=== PATIENT | female | born 1945 | race American Indian/Alaskan Native ===

== ENCOUNTER 2018-03-20 22:30 | Observation (INO) | payer MEDICAID, OTHER ==
--- NOTE | 2018-03-20 23:40 | C.PDOC ---
History Of Present Illness The patient presents to the ED for evaluation of shortness of breath which began earlier today. Patient states she was afraid to fall asleep and presents to the ED for further evaluation. She denies fever, chills, nausea, vomiting. Time Seen by Provider: 03/20/18 23:39 Chief Complaint (Nursing): Shortness Of Breath History Per: Patient History/Exam Limitations: no limitations Onset/Duration Of Symptoms: Hrs Current Symptoms Are (Timing): Still Present Quality: denies: "Pain" Current Respiratory Medications: See Home Med List Severity: Mild Pain Scale Rating Of: 3 Associated Symptoms: denies: Fever, Chills Recent travel outside of the [place]: No Additional History Per: Patient Past Medical History Reviewed: Historical Data, Nursing Documentation, Vital Signs Vital Signs: Last Vital Signs Temp 98.6 F 03/21/18 02:01 Pulse 79 03/21/18 02:01 Resp 22 03/21/18 02:01 BP 119/45 L 03/21/18 02:01 Pulse Ox 98 03/21/18 02:01 - Medical History PMH: Anxiety, Arthritis, Bipolar Disorder, Depression, Diabetes, Emphysema, HTN , Hypercholesterolemia, Parkinson's Disease Denies: Chronic Kidney Disease Surgical History: No Surg Hx Family History: States: Unknown Family Hx - Social History Hx Tobacco Use: Yes Hx Alcohol Use: No Hx Substance Use: No - Immunization History Hx Tetanus Toxoid Vaccination: No Hx Influenza Vaccination: No Hx Pneumococcal Vaccination: No Review Of Systems Constitutional: Negative for: Fever, Chills Cardiovascular: Negative for: Chest Pain, Palpitations Respiratory: Positive for: Shortness of Breath. Negative for: Cough Gastrointestinal: Negative for: Nausea, Vomiting Skin: Negative for: Rash, Lesions, Jaundice, Bruising Neurological: Negative for: Weakness, Numbness Psych: Negative for: Anxiety Physical Exam - Physical Exam Appears: Non-toxic, No Acute Distress, Other (strong cigarette odor noted ) Skin: Normal Color, Warm, Dry Head: Normacephalic Eye(s): bilateral: Normal Inspection Oral Mucosa: Moist Teeth: Edentulous Neck: Supple Chest: Symmetrical, No Deformity, No Tenderness Cardiovascular: Rhythm Regular, No Murmur Respiratory: No Rales, No Rhonchi, Wheezing (scattered ), Other (speaking in complete sentences ) Extremity: Normal ROM, Capillary Refill (less than 2 seconds ) Neurological/Psych: Oriented x3 Gait: Steady ED Course And Treatment - Laboratory Results Result Diagrams: 03/20/18 23:58 03/20/18 23:58 ECG: Interpreted By Me, Viewed By Me ECG Rhythm: Sinus Rhythm (75), Nonspecific Changes O2 Sat by Pulse Oximetry: 95 (on RA) Pulse Ox Interpretation: Normal - Radiology CXR: Interpreted by Me, Viewed By Me Progress Note: Bloodwork, urinalysis, CXR, EKG ordered and reviewed. Albuterol INH administered. Critical Care Time - Critical Care Note Total Time (in mins): 30 Documented critical care: time excludes all time spent performing seperately billable procedures. Disposition Discussed With Dr.: Victorino Webster Comment: accepted the pt on his service and took over the care at 4:45 AM Doctor Will See Patient In The: ED Counseled Patient/Family Regarding: Studies Performed, Diagnosis - Disposition Disposition: HOSPITALIZED Disposition Time: 23:39 Condition: FAIR Forms: [employer] (Ukrainian) - Clinical Impression Clinical Impression: Tobacco abuse, Dyspnea, Acute asthma exacerbation - Scribe Statement The provider has reviewed the documentation as recorded by the Scribe (Susy Nayak) Provider Attestation: All medical record entries made by the Scribe were at my direction and personally dictated by me. I have reviewed the chart and agree that the record accurately reflects my personal performance of the history, physical exam, medical decision making, and the department course for this patient. I have also personally directed, reviewed, and agree with the discharge instructions and disposition. Decision To Admit - Pt Status Changed To: Hospital Disposition Of: Inpatient - Admit Certification Admit to Inpatient:: After my assessment, the patient will require hospitalization for at least two midnights. This is because of the severity of symptoms shown, intensity of services needed, and/or the medical risk in this patient being treated as an outpatient. - InPatient: Physician Admission Certification: I certify that this patient requires 2 or more midnights of care for the following reason:: After my assessment, the patient will require hospitalization for at least two midnights. This is because of the severity of symptoms shown, intensity of services needed, and/or the medical risk in this patient being treated as an outpatient. - . Bed Request Type: Regular Admitting Physician: Victorino Webster Patient Diagnosis: Tobacco abuse, Dyspnea, Acute asthma exacerbation
[2018-03-21 00:08] LABS: BASO % 0.6 % (0.0-2.0); EOS # 0.4 K/uL (0.0-0.7); HEMOGLOBIN 11.3 g/dL (11.0-16.0); LYMPH # 1.8 K/uL (1.0-4.3); LYMPH % 20.1 % (20.0-40.0); MEAN CELL VOLUME 93.6 fL (81.0-99.0); MEAN CORPUSCULAR HEMOGLOBIN 31.4 pg (27.0-31.0); MEAN CORPUSCULAR HGB CONC 33.5 g/dL (33.0-37.0); MEAN PLATELET VOLUME 8.1 fL (7.2-11.7); MONO # 1.2 K/uL (0.0-0.8); MONO % 13.9 % (0.0-10.0); NEUT # 5.4 K/uL (1.8-7.0); NEUT % 61.4 % (50.0-75.0); NRBC % 0.2 % (0.0-2.0); RBC 3.59 Mil/uL (3.80-5.20); RED CELL DISTRIBUTION WIDTH 14.9 % (11.5-14.5); WHITE BLOOD COUNT 8.8 K/uL (4.8-10.8)
[2018-03-21 00:11] LABS: INR 1.2; PROTHROMBIN TIME 12.8 SECONDS (9.7-12.2)
[2018-03-21 00:11] LABS: ABG ALLEN TEST POS; ARTERIAL BLOOD GAS HCO3 28.8 mmol/L (21-28); ARTERIAL BLOOD GAS O2 SAT 97.7 % (95-98); ARTERIAL BLOOD GAS PCO2 55 mm/Hg (35-45); ARTERIAL BLOOD GAS PH 7.37 (7.35-7.45); ARTERIAL BLOOD GAS PO2 83 mm/Hg (80-100); ARTERIAL BLOOD GAS TCO2 33.5 mmol/L (22-28)
[2018-03-21] MEDS: Albuterol-Ipratrop 3 mg / 0.5 (3 ml) UD IH SCH ×3 (00:15→00:45)
[2018-03-21] MEDS ORDERED: Albuterol-Ipratrop 3 mg / 0.5 (3 ml) UD ONE ×3 (00:18)
[2018-03-21 00:31] LABS: TROPONIN I 0.034 ng/mL (0.00-0.120)
[2018-03-21 00:32] LABS: ALBUMIN 3.8 g/dL (3.5-5.0); CALCIUM 9.4 mg/dl (8.6-10.4)
[2018-03-21] MEDS ORDERED: Albuterol 0.083% Inhal Sol (2.5 mg/3 mL) UD ONE (01:46)
--- NOTE | 2018-03-21 04:24 | CP.PCM.HP ---
<Stephanie Lindsay - Last Filed: 03/21/18 07:09> History of Present Illness - History of Present Illness History of Present Illness: H&P: 72 year old female with past medical history of asthma, HLD, HTN, DM, bipolar, Parkinson presented to hospital for shortness of breath that began about 5 days ago. SOB is accompanied with productive cough with whitish sputum. Patient also complains of sunjective F/C since earlier yesterday. Patient denies having any chest discomfort, abd pain, N/v/d/C. she does c/o sinus congestion but denies having any rhinorrhea. Patient has not used any medications for her symptoms at home other than her regular prescriptions. Patient does not use home O2. Currently, continues to c/o sob. denies CP, abd pain, N/V/d/c, LE swelling, F/C. No hx of DVT or PE. No recent travels. No sick contacts. Pmhx: stated above Sx: right eye cataract sx., hemarrhoidectomy Social: Smoked 10 cig/day since age 19. denies ETOH/ilicit drug use. Meds: Losartan/HCTz 100/12.5 mg po qd; Divaloproex DR 500 mg po BID, Glimepiride 2 mg po qd, Benctropine 1 mg po BID, Risperidone 3 mg po bid, Pravastatin 20 mg po qd, Hydralazine 25 mg po bid, ventolin, gabapentin 300 mg po bid, amlodipine 10 mg po qd NKDA Present on Admission - Present on Admission Any Indicators Present on Admission: No Review of Systems - Constitutional Constitutional: Chills, Fever - EENT Eyes: absent: Blurred Vision, Change in Vision Nose/Mouth/Throat: Nasal Congestion. absent: Nasal Discharge, Sinus Pressure, Sore Throat - Cardiovascular Cardiovascular: absent: Chest Pain, Dyspnea, Dyspnea on Exertion, Leg Edema - Respiratory Respiratory: Cough, Dyspnea, Dyspnea on Exertion, Wheezing. absent: Hemoptysis , Pain on Inspiration, Chest Congestion, Pain with Coughing - Gastrointestinal Gastrointestinal: absent: Abdominal Pain, Constipation, Diarrhea, Nausea, Vomiting - Genitourinary Genitourinary: absent: Dysuria, Urinary Frequency - Musculoskeletal Musculoskeletal: absent: Back Pain, Numbness, Tingling - Integumentary Integumentary: absent: Acne, Lesions, Rash, Wounds - Neurological Neurological: absent: Syncope, Tremor, Weakness Past Patient History - Infectious Disease Hx of Infectious Diseases: None - Past Medical History & Family History Past Medical History?: Yes - Past Social History Smoking Status: Heavy Smoker > 10 Cigarettes Daily Chewing Tobacco Use: No Cigar Use: No Alcohol: None Drugs: Denies Home Situation {Lives}: With Family - CARDIAC Hx Hypercholesterolemia: Yes Hx Hypertension: Yes - PULMONARY Hx Emphysema: Yes - NEUROLOGICAL Hx Parkinson's Disease: Yes - HEENT Other/Comment: wear eyeglasses - RENAL Hx Chronic Kidney Disease: No - ENDOCRINE/METABOLIC Hx Endocrine Disorders: Yes Hx Diabetes Mellitus Type 2: Yes - HEMATOLOGICAL/ONCOLOGICAL Hx Blood Disorders: No - INTEGUMENTARY Hx Dermatological Problems: No - MUSCULOSKELETAL/RHEUMATOLOGICAL Hx Arthritis: Yes - GASTROINTESTINAL Hx Gastrointestinal Disorders: No - GENITOURINARY/GYNECOLOGICAL Hx Genitourinary Disorders: No - PSYCHIATRIC Hx Anxiety: Yes Hx Bipolar Disorder: Yes Hx Depression: Yes Hx Substance Use: No - SURGICAL HISTORY Hx Surgeries: No - ANESTHESIA Hx Anesthesia: No Hx Anesthesia Reactions: No Hx Malignant Hyperthermia: No Meds Allergies/Adverse Reactions: Allergies Allergy/AdvReac Type Severity Reaction Status Date / Time No Known Allergies Allergy Verified 03/20/18 22:52 Physical Exam - Constitutional Appears: Non-toxic, No Acute Distress - Head Exam Head Exam: ATRAUMATIC, NORMOCEPHALIC - Eye Exam Eye Exam: EOMI Pupil Exam: PERRL - ENT Exam ENT Exam: Mucous Membranes Moist - Respiratory Exam Respiratory Exam: Wheezes. absent: Accessory Muscle Use, Rales, Rhonchi, Respiratory Distress - Cardiovascular Exam Cardiovascular Exam: REGULAR RHYTHM, +S1, +S2. absent: Diastolic murmur, Gallop , Rubs, Systolic Murmur - GI/Abdominal Exam GI & Abdominal Exam: Normal Bowel Sounds, Soft. absent: Distended, Firm, Guarding, Rigid, Tenderness - Extremities Exam Extremities exam: Negative for: pedal edema, tenderness - Neurological Exam Neurological exam: Alert, Oriented x3 - Psychiatric Exam Psychiatric exam: Normal Affect, Normal Mood - Skin Skin Exam: Dry, Intact, Normal Color, Warm Results - Vital Signs Recent Vital Signs: Last Vital Signs Temp 98.6 F 03/21/18 02:01 Pulse 79 03/21/18 02:01 Resp 22 03/21/18 02:01 BP 119/45 L 03/21/18 02:01 Pulse Ox 98 03/21/18 02:01 - Labs Result Diagrams: 03/20/18 23:58 03/20/18 23:58 Labs: Laboratory Results - last 24 hr 03/20/18 03/20/18 03/20/18 00:05 23:58 23:58 WBC 8.8 RBC 3.59 L Hgb 11.3 Hct 33.5 L MCV 93.6 MCH 31.4 H MCHC 33.5 RDW 14.9 H Plt Count 235 MPV 8.1 Neut % (Auto) 61.4 Lymph % (Auto) 20.1 Placer % (Auto) 13.9 H Eos % (Auto) 4.0 Baso % (Auto) 0.6 Neut # (Auto) 5.4 Lymph # (Auto) 1.8 Placer # (Auto) 1.2 H Eos # (Auto) 0.4 Baso # (Auto) 0.0 PT 12.8 H INR 1.2 APTT 41 H Puncture Site Rr pCO2 55 H pO2 83 HCO3 28.8 H ABG pH 7.37 ABG Total CO2 33.5 H ABG O2 Saturation 97.7 ABG Base Excess 5.0 H Humberto Test Pos ABG Potassium 3.3 L A-a O2 Difference 48.0 Respiratory Index 0.6 Sodium 143.0 Chloride 108.0 H Glucose 89 Lactate 0.9 Liter Flow 2.0 FiO2 28.0 Potassium Carbon Dioxide Anion Gap BUN Creatinine Est GFR ( Amer) Est GFR (Non-Af Amer) Random Glucose Calcium Total Bilirubin AST ALT Alkaline Phosphatase Troponin I NT-Pro-B Natriuret Pep Total Protein Albumin Globulin Albumin/Globulin Ratio Arterial Blood Potassium 3.3 L 03/20/18 23:58 WBC RBC Hgb Hct MCV MCH MCHC RDW Plt Count MPV Neut % (Auto) Lymph % (Auto) Placer % (Auto) Eos % (Auto) Baso % (Auto) Neut # (Auto) Lymph # (Auto) Placer # (Auto) Eos # (Auto) Baso # (Auto) PT INR APTT Puncture Site pCO2 pO2 HCO3 ABG pH ABG Total CO2 ABG O2 Saturation ABG Base Excess Humberto Test ABG Potassium A-a O2 Difference Respiratory Index Sodium 146 Chloride 104 Glucose Lactate Liter Flow FiO2 Potassium 3.7 Carbon Dioxide 29 Anion Gap 17 BUN 13 Creatinine 1.1 Est GFR ( Amer) 59 Est GFR (Non-Af Amer) 49 Random Glucose 87 Calcium 9.4 Total Bilirubin 0.4 AST 14 ALT 7 L D Alkaline Phosphatase 57 Troponin I 0.0340 NT-Pro-B Natriuret Pep 219 Total Protein 7.6 Albumin 3.8 Globulin 3.8 Albumin/Globulin Ratio 1.0 Arterial Blood Potassium Assessment & Plan - Assessment and Plan (Free Text) Assessment: 72 year old female with past medical history of Bipolar, HTN, Hyperlipidemia, Parkinsons, Diabetes, COPD is admitted for COPD exacerbation. CXR on admission showed questionable right lower lobe infiltrate. Patient had low grade temp on admission and was persistently tachycardic. Normal WBC count and normal lactic acid. COPD exacerbation - NC prn to maintian O2 >90% - Duonebs q6 nay. Duoneb Q2 prn - will start solumedrol 40 IV bid - Doxycycline 100 mg po BID - will check procal - Since pt has presistent tachycardia and shortness of breath, will check CTA for possible PE DM - Will hold home medications due to contrast exposure - Accuchecks ACHS - ISS - Heart healthy diet - Will check Hgb A1c - will continue gabapentin for diabetic neuropathy HTN - Will continue Norvasc 10 mg po qd, Losartan 100 mg qd and HCTZ 25 mg po qd - will hold hydralazine for now - Will continue to monitor VS HLD - Will continue statin therapy - Will check lipid panel Parkinson's - Will continue home medications: benztropine Bipolar - Will continue home medications: divalproex and risperidone Prophylaxis - Heparin, SCDs - Pepcid Case discussed with attending, Dr. Webster - Date & Time Date: 03/21/18 Time: 04:24 <Victorino Webster P - Last Filed: 03/22/18 07:04> Results - Vital Signs Recent Vital Signs: Last Vital Signs Temp 97.8 F 03/22/18 04:00 Pulse 80 03/22/18 04:00 Resp 20 03/22/18 04:00 BP 108/64 03/22/18 04:00 Pulse Ox 99 03/22/18 04:00 - Labs Result Diagrams: 03/21/18 13:57 03/21/18 13:57 Labs: Laboratory Results - last 24 hr 03/21/18 03/21/18 03/21/18 08:16 11:13 13:57 WBC 9.0 RBC 3.75 L Hgb 11.6 Hct 35.1 MCV 93.5 MCH 31.0 MCHC 33.2 RDW 15.0 H Plt Count 258 MPV 8.5 Neut % (Auto) 87.4 H Lymph % (Auto) 10.9 L Placer % (Auto) 1.2 Eos % (Auto) 0.0 Baso % (Auto) 0.5 Neut # (Auto) 7.8 H Lymph # (Auto) 1.0 Placer # (Auto) 0.1 Eos # (Auto) 0.0 Baso # (Auto) 0.0 Sodium Potassium Chloride Carbon Dioxide Anion Gap BUN Creatinine Est GFR ( Amer) Est GFR (Non-Af Amer) POC Glucose (mg/dL) 131 H 269 H Random Glucose Hemoglobin A1c Calcium Total Bilirubin AST ALT Alkaline Phosphatase Total Protein Albumin Globulin Albumin/Globulin Ratio Triglycerides Cholesterol LDL Cholesterol Direct HDL Cholesterol Procalcitonin H.influenzae Type B Ag Ur L.pneumophila Ag Mycoplasma pneumon IgM N.meningitidis ACY/W135 N.meningi B/E.coli K1 Ag Group B Strep Antigen S. pneumoniae Antigen 03/21/18 03/21/18 03/21/18 13:57 13:57 13:57 WBC RBC Hgb Hct MCV MCH MCHC RDW Plt Count MPV Neut % (Auto) Lymph % (Auto) Placer % (Auto) Eos % (Auto) Baso % (Auto) Neut # (Auto) Lymph # (Auto) Placer # (Auto) Eos # (Auto) Baso # (Auto) Sodium 141 Potassium 4.6 Chloride 100 Carbon Dioxide 26 Anion Gap 19 BUN 16 Creatinine 1.1 Est GFR ( Amer) 59 Est GFR (Non-Af Amer) 49 POC Glucose (mg/dL) Random Glucose 299 H Hemoglobin A1c 7.1 H Calcium 9.5 Total Bilirubin 0.6 AST 18 ALT 9 D Alkaline Phosphatase 69 Total Protein 8.0 Albumin 4.0 Globulin 4.0 H Albumin/Globulin Ratio 1.0 Triglycerides 79 D Cholesterol 183 LDL Cholesterol Direct 113 HDL Cholesterol 38 Procalcitonin < 0.05 L H.influenzae Type B Ag Ur L.pneumophila Ag Mycoplasma pneumon IgM N.meningitidis ACY/W135 N.meningi B/E.coli K1 Ag Group B Strep Antigen S. pneumoniae Antigen 03/21/18 03/21/18 03/21/18 13:57 16:51 21:09 WBC RBC Hgb Hct MCV MCH MCHC RDW Plt Count MPV Neut % (Auto) Lymph % (Auto) Placer % (Auto) Eos % (Auto) Baso % (Auto) Neut # (Auto) Lymph # (Auto) Placer # (Auto) Eos # (Auto) Baso # (Auto) Sodium Potassium Chloride Carbon Dioxide Anion Gap BUN Creatinine Est GFR ( Amer) Est GFR (Non-Af Amer) POC Glucose (mg/dL) 285 H 214 H Random Glucose Hemoglobin A1c Calcium Total Bilirubin AST ALT Alkaline Phosphatase Total Protein Albumin Globulin Albumin/Globulin Ratio Triglycerides Cholesterol LDL Cholesterol Direct HDL Cholesterol Procalcitonin H.influenzae Type B Ag Negative Ur L.pneumophila Ag Negative Mycoplasma pneumon IgM Negative N.meningitidis ACY/W135 Negative N.meningi B/E.coli K1 Ag Negative Group B Strep Antigen Negative S. pneumoniae Antigen Negative 03/22/18 06:22 WBC RBC Hgb Hct MCV MCH MCHC RDW Plt Count MPV Neut % (Auto) Lymph % (Auto) Placer % (Auto) Eos % (Auto) Baso % (Auto) Neut # (Auto) Lymph # (Auto) Placer # (Auto) Eos # (Auto) Baso # (Auto) Sodium Potassium Chloride Carbon Dioxide Anion Gap BUN Creatinine Est GFR ( Amer) Est GFR (Non-Af Amer) POC Glucose (mg/dL) 225 H Random Glucose Hemoglobin A1c Calcium Total Bilirubin AST ALT Alkaline Phosphatase Total Protein Albumin Globulin Albumin/Globulin Ratio Triglycerides Cholesterol LDL Cholesterol Direct HDL Cholesterol Procalcitonin H.influenzae Type B Ag Ur L.pneumophila Ag Mycoplasma pneumon IgM N.meningitidis ACY/W135 N.meningi B/E.coli K1 Ag Group B Strep Antigen S. pneumoniae Antigen Attending/Attestation - Attestation I have personally seen and examined this patient.: Yes I have fully participated in the care of the patient.: Yes I have reviewed all pertinent clinical information: Yes Notes (Text): 03/22/18 07:03 See note on the same day.
[2018-03-21] MEDS ORDERED: Acetaminophen 650mg/20.3ml solution UD NG PRN (05:10)
[2018-03-21] MEDS ORDERED: Oxymetazoline 0.05% Nasal Spray (30 ml) NS STA (05:29)
[2018-03-21] MEDS: MethylPREDNISolone 40 mg Vial IVP SCH ×3 (05:29→21:48)
[2018-03-21] MEDS ORDERED: Sodium Chloride 0.9% 1,000 ML IV SCH (05:30)
[2018-03-21] MEDS ORDERED: Iodixanol 320 MG/ML 100 ML BOTTLE IV ONE (06:15)
--- NOTE | 2018-03-21 07:17 | CP.PCM.PN ---
Subjective - Date & Time of Evaluation Date of Evaluation: 03/21/18 Time of Evaluation: 07:14 - Subjective Subjective: Assessment COPD exacerbation Blocked nose Sob from above tobacco abuse h/o NIDDM h/o bipolar Suspected sleep apnea with chronic co2 retention, CTA done, not in best aterial phase, but no cental pe noticed, no pna. Plan Duoneb, systemic steroids doxycycline single dose afrin ocean spray Home meds GI/DVT prophylaxis See orders for detail. Objective - Vital Signs/Intake and Output Vital Signs (last 24 hours): Temp Pulse Resp BP Pulse Ox 98.3 F 76 22 112/70 91 L 03/21/18 06:37 03/21/18 06:37 03/21/18 06:37 03/21/18 06:37 03/21/18 06:37 - Medications Medications: Current Medications Acetaminophen (Tylenol 650mg/20.3ml Solution Ud) 650 mg NG Q6 PRN PRN Reason: Fever >100.4 F Doxycycline Hyclate (Doryx) 100 mg PO BID JULIEN PRN Reason: Protocol Famotidine (Pepcid) 20 mg PO BID JULIEN Guaifenesin (Mucinex La) 600 mg PO BID [facility] Heparin Sodium (Porcine) (Heparin) 5,000 units SC Q12 [facility] Sodium Chloride (Sodium Chloride 0.9%) 1,000 mls @ 999 mls/hr IV .Q1H1M [facility] Last Admin: 03/21/18 05:30 Dose: 999 mls/hr Methylprednisolone (Solu-Medrol) 40 mg IVP Q12 [facility] Last Admin: 03/21/18 05:29 Dose: 40 mg - Labs Labs: 03/20/18 23:58 03/20/18 23:58 PT 12.8 SECONDS (9.7-12.2) H 03/20/18 23:58 INR 1.2 03/20/18 23:58 APTT 41 SECONDS (21-34) H 03/20/18 23:58
[2018-03-21] MEDS ORDERED: Albuterol-Ipratrop 3 mg / 0.5 (3 ml) UD INH PRN (07:19)
--- NOTE | 2018-03-21 07:33 | CT ---
EXAM: CT Angiography Chest With Intravenous Contrast CLINICAL HISTORY: 72 years old, female; Pain; Chest pain; Patient HX: 08-14-14 images; Additional info: SOB, tachycardia. Pateint was moving all over the table moving her arms and try to jump from table during the study TECHNIQUE: Axial computed tomographic angiography images of the chest with intravenous contrast using pulmonary embolism protocol. All CT scans at this facility use one or more dose reduction techniques, viz.: automated exposure control; ma/kV adjustment per patient size (including targeted exams where dose is matched to indication; i.e. head); or iterative reconstruction technique. MIP reconstructed images were created and reviewed. Coronal and sagittal reformatted images were created and reviewed. CONTRAST: 100 mL of [id number] administered intravenously. COMPARISON: No relevant prior studies available. FINDINGS: Pulmonary arteries: The pulmonary trunk is dilated measuring 4.6 cm in diameter. There are no filling defects in the main and proximal pulmonary arteries. The distal segmental branches are limited by motion. Aorta: No acute findings. No thoracic aortic aneurysm. Lungs: Unremarkable. No mass. No consolidation. Pleural space: Unremarkable. No significant effusion. No pneumothorax. Heart: Coronary artery calcification. The heart demonstrates mild diffuse enlargement. No significant pericardial effusion. No evidence of RV dysfunction. Bones/joints: Degenerative changes with anterior flowing osteophytes in the thoracic spine. No acute fracture. No dislocation. Soft tissues: Unremarkable. Lymph nodes: Unremarkable. No enlarged lymph nodes. IMPRESSION: No evidence of pulmonary embolism. The distal segmental branches are limited by motion. Dilated pulmonary trunk which can be associated with pulmonary hypertension. Clinical correlation recommended.
--- NOTE | 2018-03-21 08:15 | RAD ---
Chest x-ray single frontal view History: Shortness of breath. Comparison: 08/13/2014 Findings: Right hilar prominence. Increased markings at the right lung base which may represent atelectasis and or infiltrate. Tortuous ectatic aorta. Cardiomegaly. Degenerative changes in the spine with paravertebral osteophytes. Impression: Right hilar prominence. Increased markings at the right lung base which may represent atelectasis and or infiltrate. Tortuous ectatic aorta. Cardiomegaly.
[2018-03-21] MEDS: (Novolin R) Insulin Human Regular 100 units/ml vial SC SCH ×4 (08:18→21:38)
--- NOTE | 2018-03-21 10:37 | CP.PCM.PN ---
<Ana Ruiz - Last Filed: 03/21/18 11:19> Subjective - Date & Time of Evaluation Date of Evaluation: 03/21/18 Time of Evaluation: 09:00 - Subjective Subjective: Medicine Note for Hospitalist Service- Dr. Oscar Nayak Patient was seen and examined at bedside. Patient reports her breathing has much improved, she admits to a productive cough with whitish phlegm. Denied fever, chills, headache, chest pain, shortness of breath, abdominal pain, n/v/d/ c, or urinary symptoms. Objective - Vital Signs/Intake and Output Vital Signs (last 24 hours): Temp Pulse Resp BP Pulse Ox 100.5 F H 82 20 132/66 97 03/21/18 08:57 03/21/18 07:15 03/21/18 07:15 03/21/18 07:15 03/21/18 07:15 - Medications Medications: Current Medications Acetaminophen (Tylenol 650mg/20.3ml Solution Ud) 650 mg NG Q6 PRN PRN Reason: Fever >100.4 F Acetaminophen (Tylenol 325mg Tab) 650 mg PO Q6 NAY Stop: 03/22/18 00:01 Last Admin: 03/21/18 08:57 Dose: 650 mg Albuterol/Ipratropium (Duoneb 3 Mg/0.5 Mg (3 Ml) Ud) 3 ml INH RQ6 NAY Albuterol/Ipratropium (Duoneb 3 Mg/0.5 Mg (3 Ml) Ud) 3 ml INH RQ2 PRN PRN Reason: Shortness of Breath Amlodipine Besylate (Norvasc) 10 mg PO DAILY [facility] Benztropine Mesylate (Cogentin) 1 mg PO BID [facility] Divalproex Sodium (Depakote Dr) 500 mg PO BID [facility] Doxycycline Hyclate (Doryx) 100 mg PO BID [facility] PRN Reason: Protocol Famotidine (Pepcid) 20 mg PO BID [facility] Gabapentin (Neurontin) 300 mg PO BID [facility] Guaifenesin (Mucinex La) 600 mg PO BID [facility] Heparin Sodium (Porcine) (Heparin) 5,000 units SC Q12 [facility] Hydrochlorothiazide (Hydrodiuril) 25 mg PO DAILY [facility] Sodium Chloride (Sodium Chloride 0.9%) 1,000 mls @ 999 mls/hr IV .Q1H1M [facility] Last Admin: 03/21/18 05:30 Dose: 999 mls/hr Insulin Human Regular (Novolin R) 0 unit SC ACHS [facility] PRN Reason: Protocol Last Admin: 03/21/18 08:18 Dose: Not Given Losartan Potassium (Cozaar) 100 mg PO DAILY [facility] Methylprednisolone (Solu-Medrol) 40 mg IVP Q12 [facility] Last Admin: 03/21/18 05:29 Dose: 40 mg Risperidone (Risperdal Tab) 3 mg PO BID NAY Rosuvastatin Calcium (Crestor) 10 mg PO HS NAY - Labs Labs: 03/20/18 23:58 03/20/18 23:58 PT 12.8 SECONDS (9.7-12.2) H 03/20/18 23:58 INR 1.2 03/20/18 23:58 APTT 41 SECONDS (21-34) H 03/20/18 23:58 - Additional Findings Additional findings: - Constitutional Appears: Non-toxic, No Acute Distress - Head Exam Head Exam: ATRAUMATIC, NORMOCEPHALIC - Eye Exam Eye Exam: EOMI Pupil Exam: PERRL - ENT Exam ENT Exam: Mucous Membranes Moist - Respiratory Exam Respiratory Exam: decreased breath sounds, faint wheezes. absent: Accessory Muscle Use, Rales, Rhonchi, Respiratory Distress - Cardiovascular Exam Cardiovascular Exam: REGULAR RHYTHM, +S1, +S2. absent: Diastolic murmur, Gallop , Rubs, Systolic Murmur - GI/Abdominal Exam GI & Abdominal Exam: Normal Bowel Sounds, Soft. absent: Distended, Firm, Guarding, Rigid, Tenderness - Extremities Exam Extremities exam: Negative for: pedal edema, tenderness - Neurological Exam Neurological exam: Alert, Oriented x3 - Psychiatric Exam Psychiatric exam: Normal Affect, Normal Mood - Skin Skin Exam: Dry, Intact, Normal Color, Warm Assessment and Plan - Assessment and Plan (Free Text) Assessment: 72 year old female with past medical history of Bipolar, HTN, Hyperlipidemia, Parkinsons, Diabetes, COPD is admitted for COPD exacerbation. CXR on admission showed questionable right lower lobe infiltrate. Patient had low grade temp on admission and was persistently tachycardic. Normal WBC count and normal lactic acid. Appears as a chronic CO2 retainer, ???TRUMAN. Plan: COPD exacerbation - NC prn to maintain O2 > 90% - CTA: negative for PE - will check procal, blood cultures, pneumonia workup Meds: - Duonebs q6 nay. Duoneb Q2 prn - will start solumedrol 40 IV bid - Doxycycline 100 mg po BID [facility] - Heart healthy diet - Will check Hgb A1c - will continue gabapentin for diabetic neuropathy - Will hold home medications due to contrast exposure HTN - Will continue Norvasc 10 mg po qd, Losartan 100 mg qd and HCTZ 25 mg po qd - will hold hydralazine for now - Will continue to monitor VS HLD - Will continue statin therapy - Will check lipid panel Parkinson's - Will continue home medications: benztropine Bipolar - Will continue home medications: divalproex and risperidone Prophylaxis - Heparin, SCDs - Pepcid Disposition: Pending on clinical improvement will anticipate discharge 03/[address] Oscar Nayak, Ana Ruiz DO, PGY-1 <Oscar Nayak J - Last Filed: 03/22/18 18:42> Objective - Vital Signs/Intake and Output Vital Signs (last 24 hours): Temp Pulse Resp BP Pulse Ox 98.2 F 70 18 97/59 L 96 03/22/18 07:00 03/22/18 08:45 03/22/18 07:00 03/22/18 07:00 03/22/18 07:00 - Labs Labs: 03/22/18 08:19 03/22/18 08:19 PT 12.8 SECONDS (9.7-12.2) H 03/20/18 23:58 INR 1.2 03/20/18 23:58 APTT 41 SECONDS (21-34) H 03/20/18 23:58 Attending/Attestation - Attestation I have personally seen and examined this patient.: Yes I have fully participated in the care of the patient.: Yes I have reviewed all pertinent clinical information, including history, physical exam and plan: Yes Notes (Text): 03/22/18 18:42 This is late entry
[2018-03-21] MEDS: Divalproex 500 mg DR Tab PO SCH ×2 (10:47→17:49)
[2018-03-21] MEDS: guaiFENesin 600 mg ER Tab PO SCH ×2 (10:47→17:45)
[2018-03-21] MEDS ORDERED: Albuterol-Ipratrop 3 mg / 0.5 (3 ml) UD INH STA ×2 (11:02→11:15)
[2018-03-21] MEDS ORDERED: Acetylcysteine 20% Inhal Soln (4ml) INH STA (11:03)
[2018-03-21] MEDS ORDERED: Acetylcysteine 20% Inhal Soln (4ml) INH ONE (11:30)
[2018-03-21] MEDS: Albuterol-Ipratrop 3 mg / 0.5 (3 ml) UD INH SCH ×3 (13:05→19:30)
[2018-03-21 14:07] LABS: BASO % 0.5 % (0.0-2.0); HEMOGLOBIN 11.6 g/dL (11.0-16.0); LYMPH % 10.9 % (20.0-40.0); MEAN CELL VOLUME 93.5 fL (81.0-99.0); MEAN CORPUSCULAR HGB CONC 33.2 g/dL (33.0-37.0); MEAN PLATELET VOLUME 8.5 fL (7.2-11.7); MONO # 0.1 K/uL (0.0-0.8); MONO % 1.2 % (0.0-10.0); NEUT # 7.8 K/uL (1.8-7.0); NEUT % 87.4 % (50.0-75.0); NRBC % 0.1 % (0.0-2.0); RBC 3.75 Mil/uL (3.80-5.20)
[2018-03-21] MEDS: Fluticasone Nasal 50 mcg/Spray NAS SCH (14:13)
[2018-03-21 14:24] LABS: CALCIUM 9.5 mg/dl (8.6-10.4)
[2018-03-21 16:11] LABS: LEGIONELLA AG URINE NEGATIVE (NEGATIVE); N MENINGITIS ACY/W135 NEGATIVE (NEGATIVE); N MENINGITIS B/ECOLI K1 NEGATIVE (NEGATIVE); STREP PNEUMONIAE NEGATIVE (NEGATIVE); STREPTOCOCCUS B NEGATIVE (NEGATIVE)
[2018-03-21 17:27] LABS: MYCOPLASMA PNEUMONIAE IGM NEGATIVE (NEGATIVE)
[2018-03-21] MEDS: Saccharomyces Boulardi 250 mg Cap PO SCH (17:45)
[2018-03-22] MEDS: Albuterol-Ipratrop 3 mg / 0.5 (3 ml) UD INH SCH ×2 (03:03→07:36)
[2018-03-22 07:05] LABS: SQUAMOUS EPITHIAL < 1 /hpf (0-5); URINE BILIRUBIN NEGATIVE (NEGATIVE); URINE BLOOD NEGATIVE (NEGATIVE); URINE CLARITY Clear (Clear); URINE COLOR Yellow (YELLOW); URINE GLUCOSE (UA) NORMAL (Normal); URINE LEUKOCYTE ESTERASE NEG Leu/uL (Negative); URINE PROTEIN NEGATIVE (NEGATIVE); URINE UROBILINOGEN NORMAL mg/dL (0.2-1.0)
[2018-03-22 07:50] VITALS: BP 97/59; RESP 18; TEMP 98.2; O2SAT 96
[2018-03-22] MEDS: (Novolin R) Insulin Human Regular 100 units/ml vial SC SCH ×2 (08:15→11:55)
[2018-03-22 08:26] LABS: BASO % 0.1 % (0.0-2.0); HEMOGLOBIN 11.2 g/dL (11.0-16.0); LYMPH # 1.6 K/uL (1.0-4.3); MEAN CELL VOLUME 93.4 fL (81.0-99.0); MEAN CORPUSCULAR HEMOGLOBIN 31.6 pg (27.0-31.0); MEAN CORPUSCULAR HGB CONC 33.9 g/dL (33.0-37.0); MEAN PLATELET VOLUME 8.2 fL (7.2-11.7); MONO # 0.7 K/uL (0.0-0.8); MONO % 6.9 % (0.0-10.0); NEUT # 8.4 K/uL (1.8-7.0); NRBC % 0.1 % (0.0-2.0); RBC 3.54 Mil/uL (3.80-5.20); RED CELL DISTRIBUTION WIDTH 15.2 % (11.5-14.5); WHITE BLOOD COUNT 10.8 K/uL (4.8-10.8)
[2018-03-22 08:48] VITALS: PULSE 70
[2018-03-22 08:58] LABS: ALBUMIN 3.7 g/dL (3.5-5.0); CALCIUM 9.6 mg/dl (8.6-10.4)
[2018-03-22] MEDS: Saccharomyces Boulardi 250 mg Cap PO SCH (09:42)
[2018-03-22] MEDS: guaiFENesin 600 mg ER Tab PO SCH (09:42)
[2018-03-22] MEDS: MethylPREDNISolone 40 mg Vial IVP SCH (09:44)
[2018-03-22] MEDS: Divalproex 500 mg DR Tab PO SCH (09:44)
[2018-03-22] MEDS: Fluticasone Nasal 50 mcg/Spray NAS SCH (09:45)
--- NOTE | 2018-03-22 09:49 | CP.PCM.DIS ---
<Ana Ruiz - Last Filed: 03/22/18 13:26> Provider - Provider Date of Admission: 03/21/18 04:59 Attending physician: Oscar Nayak MD Time Spent in preparation of Discharge (in minutes): 55 Hospital Course - Lab Results Lab Results: Micro Results 03/21/18 05:50 Sputum Gram Stain - Final Most Recent Lab Values WBC 10.8 K/uL (4.8-10.8) 03/22/18 08:19 RBC 3.54 Mil/uL (3.80-5.20) L 03/22/18 08:19 Hgb 11.2 g/dL (11.0-16.0) 03/22/18 08:19 Hct 33.0 % (34.0-47.0) L 03/22/18 08:19 MCV 93.4 fL (81.0-99.0) 03/22/18 08:19 MCH 31.6 pg (27.0-31.0) H 03/22/18 08:19 MCHC 33.9 g/dL (33.0-37.0) 03/22/18 08:19 RDW 15.2 % (11.5-14.5) H 03/22/18 08:19 Plt Count 249 K/uL (130-400) 03/22/18 08:19 MPV 8.2 fL (7.2-11.7) 03/22/18 08:19 Neut % (Auto) 78.0 % (50.0-75.0) H 03/22/18 08:19 Lymph % (Auto) 15.0 % (20.0-40.0) L 03/22/18 08:19 [place] % (Auto) 6.9 % (0.0-10.0) 03/22/18 08:19 Eos % (Auto) 0.0 % (0.0-4.0) 03/22/18 08:19 Baso % (Auto) 0.1 % (0.0-2.0) 03/22/18 08:19 Neut # (Auto) 8.4 K/uL (1.8-7.0) H 03/22/18 08:19 Lymph # (Auto) 1.6 K/uL (1.0-4.3) 03/22/18 08:19 [place] # (Auto) 0.7 K/uL (0.0-0.8) 03/22/18 08:19 Eos # (Auto) 0.0 K/uL (0.0-0.7) 03/22/18 08:19 Baso # (Auto) 0.0 K/uL (0.0-0.2) 03/22/18 08:19 PT 12.8 SECONDS (9.7-12.2) H 03/20/18 23:58 INR 1.2 03/20/18 23:58 APTT 41 SECONDS (21-34) H 03/20/18 23:58 Puncture Site Rr 03/20/18 00:05 pCO2 55 mm/Hg (35-45) H 03/20/18 00:05 pO2 83 mm/Hg (80-100) 03/20/18 00:05 HCO3 28.8 mmol/L (21-28) H 03/20/18 00:05 ABG pH 7.37 (7.35-7.45) 03/20/18 00:05 ABG Total CO2 33.5 mmol/L (22-28) H 03/20/18 00:05 ABG O2 Saturation 97.7 % (95-98) 03/20/18 00:05 ABG Base Excess 5.0 mmol/L (-2.0-3.0) H 03/20/18 00:05 Humberto Test Pos 03/20/18 00:05 ABG Potassium 3.3 mmol/L (3.6-5.2) L 03/20/18 00:05 A-a O2 Difference 48.0 mm/Hg 03/20/18 00:05 Respiratory Index 0.6 03/20/18 00:05 Sodium 143.0 mmol/l (132-148) 03/20/18 00:05 Chloride 108.0 mmol/L (98-107) H 03/20/18 00:05 Glucose 89 mg/dl (65-105) 03/20/18 00:05 Lactate 0.9 mmol/L (0.7-2.1) 03/20/18 00:05 Liter Flow 2.0 03/20/18 00:05 FiO2 28.0 % 03/20/18 00:05 Sodium 140 mmol/L (132-148) 03/22/18 08:19 Potassium 4.6 mmol/L (3.6-5.2) 03/22/18 08:19 Chloride 101 mmol/L (98-107) 03/22/18 08:19 Carbon Dioxide 28 mmol/L (22-30) 03/22/18 08:19 Anion Gap 16 (10-20) 03/22/18 08:19 BUN 26 mg/dL (7-17) H 03/22/18 08:19 Creatinine 1.2 mg/dL (0.7-1.2) 03/22/18 08:19 Est GFR ( Amer) 54 03/22/18 08:19 Est GFR (Non-Af Amer) 44 03/22/18 08:19 POC Glucose (mg/dL) 225 mg/dL (65-110) H 03/22/18 06:22 Random Glucose 210 mg/dL (65-105) H 03/22/18 08:19 Hemoglobin A1c 7.1 % (4.2-6.5) H 03/21/18 13:57 Calcium 9.6 mg/dl (8.6-10.4) 03/22/18 08:19 Phosphorus 3.7 mg/dL (2.5-4.5) 03/22/18 08:19 Magnesium 2.0 mg/dL (1.6-2.3) 03/22/18 08:19 Total Bilirubin 0.3 mg/dL (0.2-1.3) 03/22/18 08:19 AST 17 U/L (14-36) 03/22/18 08:19 ALT 15 U/L (9-52) 03/22/18 08:19 Alkaline Phosphatase 58 U/L (38-126) 03/22/18 08:19 Troponin I 0.0340 ng/mL (0.00-0.120) 03/20/18 23:58 NT-Pro-B Natriuret Pep 219 pg/mL (0-900) 03/20/18 23:58 Total Protein 7.4 g/dL (6.3-8.3) 03/22/18 08:19 Albumin 3.7 g/dL (3.5-5.0) 03/22/18 08:19 Globulin 3.7 gm/dL (2.2-3.9) 03/22/18 08:19 Albumin/Globulin Ratio 1.0 (1.0-2.1) 03/22/18 08:19 Triglycerides 79 mg/dL (0-149) D 03/21/18 13:57 Cholesterol 183 mg/dL (0-199) 03/21/18 13:57 LDL Cholesterol Direct 113 mg/dL (0-129) 03/21/18 13:57 HDL Cholesterol 38 mg/dL (30-70) 03/21/18 13:57 Procalcitonin < 0.05 NG/ML (0.19-0.49) L 03/21/18 13:57 Arterial Blood Potassium 3.3 mmol/L (3.6-5.2) L 03/20/18 00:05 Urine Color Yellow (YELLOW) 03/22/18 07:00 Urine Clarity Clear (Clear) 03/22/18 07:00 Urine pH 5.0 (5.0-8.0) 03/22/18 07:00 Ur Specific [place] 1.014 (1.003-1.030) 03/22/18 07:00 Urine Protein Negative mg/dL (NEGATIVE) 03/22/18 07:00 Urine Glucose (UA) Normal mg/dL (Normal) 03/22/18 07:00 Urine Ketones Negative mg/dL (NEGATIVE) 03/22/18 07:00 Urine Blood Negative (NEGATIVE) 03/22/18 07:00 Urine Nitrate Negative (NEGATIVE) 03/22/18 07:00 Urine Bilirubin Negative (NEGATIVE) 03/22/18 07:00 Urine Urobilinogen Normal mg/dL (0.2-1.0) 03/22/18 07:00 Ur Leukocyte Esterase Neg Padmaja/uL (Negative) 03/22/18 07:00 Urine RBC (Auto) < 1 /hpf (0-3) 03/22/18 07:00 Ur Squamous Epith Cells < 1 /hpf (0-5) 03/22/18 07:00 Influenza Typ A,B (EIA) Negative for flu a/b (NEGATIVE) 03/21/18 05:51 H.influenzae Type B Ag Negative (NEGATIVE) 03/21/18 13:57 Ur L.pneumophila Ag Negative (NEGATIVE) 03/21/18 13:57 Mycoplasma pneumon IgM Negative (NEGATIVE) 03/21/18 13:57 N.meningitidis ACY/W135 Negative (NEGATIVE) 03/21/18 13:57 N.meningi B/E.coli K1 Ag Negative (NEGATIVE) 03/21/18 13:57 Group B Strep Antigen Negative (NEGATIVE) 03/21/18 13:57 S. pneumoniae Antigen Negative (NEGATIVE) 03/21/18 13:57 - Hospital Course Hospital Course: Upon Admission: H&P: 72 year old female with past medical history of asthma, HLD, HTN, DM, bipolar, Parkinson presented to hospital for shortness of breath that began about 5 days ago. SOB is accompanied with productive cough with whitish sputum. Patient also complains of sunjective F/C since earlier yesterday. Patient denies having any chest discomfort, abd pain, N/v/d/C. she does c/o sinus congestion but denies having any rhinorrhea. Patient has not used any medications for her symptoms at home other than her regular prescriptions. Patient does not use home O2. Currently, continues to c/o sob. denies CP, abd pain, N/V/d/c, LE swelling, F/C. No hx of DVT or PE. No recent travels. No sick contacts. Pmhx: stated above Sx: right eye cataract sx., hemarrhoidectomy Social: Smoked 10 cig/day since age 19. denies ETOH/ilicit drug use. Meds: Losartan/HCTz 100/12.5 mg po qd; Divaloproex DR 500 mg po BID, Glimepiride 2 mg po qd, Benctropine 1 mg po BID, Risperidone 3 mg po bid, Pravastatin 20 mg po qd, Hydralazine 25 mg po bid, ventolin, gabapentin 300 mg po bid, amlodipine 10 mg po qd NKDA Throughout Hospital Course: 72 year old female with past medical history of Bipolar, HTN, Hyperlipidemia, Parkinsons, Diabetes, COPD is admitted for COPD exacerbation. CXR on admission showed questionable right lower lobe infiltrate. Patient had low grade temp on admission and was persistently tachycardic. Normal WBC count and normal lactic acid. Appears as a chronic CO2 retainer, ???TRUMAN. Plan: COPD exacerbation - NC prn to maintain O2 > 90% - CTA: negative for PE - will check procal, blood cultures, pneumonia workup Meds: - Duonebs q6 nay. Duoneb Q2 prn - Started solumedrol 40 IV bid - Doxycycline 100 mg po BID T2DM - Accuchecks ACHS - ISS - Heart healthy diet - Hgb A1c 7.1 - will continue gabapentin for diabetic neuropathy - Will hold home medications due to contrast exposure HTN - Will continue Norvasc 10 mg po qd, Losartan 100 mg qd and HCTZ 25 mg po qd - will hold hydralazine for now - Will continue to monitor VS HLD - Will continue statin therapy Parkinson's - Will continue home medications: benztropine Bipolar - Will continue home medications: divalproex and risperidone This is a brief summary of the patient's hospital course, please review EMR for full record. Discharge Exam - Additional Findings Additional findings: - Constitutional Appears: Non-toxic, No Acute Distress - Head Exam Head Exam: ATRAUMATIC, NORMOCEPHALIC - Eye Exam Eye Exam: EOMI Pupil Exam: PERRL - ENT Exam ENT Exam: Mucous Membranes Moist - Respiratory Exam Respiratory Exam: decreased breath sounds, faint wheezes. absent: Accessory Muscle Use, Rales, Rhonchi, Respiratory Distress - Cardiovascular Exam Cardiovascular Exam: REGULAR RHYTHM, +S1, +S2. absent: Diastolic murmur, Gallop , Rubs, Systolic Murmur - GI/Abdominal Exam GI & Abdominal Exam: Normal Bowel Sounds, Soft. absent: Distended, Firm, Guarding, Rigid, Tenderness - Extremities Exam Extremities exam: Negative for: pedal edema, tenderness - Neurological Exam Neurological exam: Alert, Oriented x3 - Psychiatric Exam Psychiatric exam: Normal Affect, Normal Mood - Skin Skin Exam: Dry, Intact, Normal Color, Warm Discharge Plan - Discharge Medications Prescriptions: amLODIPine [Norvasc] 10 mg PO DAILY #30 tab Divalproex Sodium 500 mg PO BID #60 Famotidine [Pepcid] 20 mg PO DAILY #30 tab Fluticasone Propionate [Flonase] 1 spr NS Q12 #1 bottle Fluticasone/Salmeterol 250/50 [Advair Diskus] 1 puff IH Q12 #1 puff Gabapentin [Neurontin] 300 mg PO BID #60 cap guaiFENesin [Mucinex LA] 600 mg PO BID #10 tab - Follow Up Plan Condition: FAIR Disposition: HOME/ ROUTINE Instructions: Asthma in Adults, Heart Healthy Diet, Quitting Smoking for Older Adults, Shortness of Breath (Dyspnea) (DC), Exacerbation of COPD (DC) Additional Instructions: Please follow up with our [facility] in either [facility] ) or [place] to establish care and to have referrals for a Pulmnologist and to have a sleep study done and a psychiatrist. [facility] [[email or web address]] [address] [place] [address] Whichever clinic you choose to go to, please call to make an appointment OR go in person to make the appointment which is preferred since sometimes you can't get a hold of someone on the phone. Please follow up as this is very important especially to get a referral for a pulmnologist and Psychiatrist. If you decide to come to the [facility] clinic, you can be seen by the physician who took care of you - Dr. Ana Ruiz - or any other resident. Please take the following medications: You will be taking a steroid taper as follows: Prednisone 10mg by mouth x 5 tablets on day 1 Prednisone 10mg by mouth x 4 tablets on day 2 Prednisone 10mg by mouth x 3 tablets on day 3 Prednisone 10mg by mouth x 2 tablets on day 4 Prednisone 10mg by mouth x 1 tablet on day 5 Pepcid 20mg by daily x 1 month - this is to help protect your stomach since you have/ and will continue taking steroids Advair 250/50 1 puff every 12 hours. Use your nebulizer treatments when you become very short of breath. Please use the Flonase to help with your nasal congestion. Blow nose until nothing comes out, shake the flonase bottle, then have patient tilt her head back, then 2 sprays each nostril, then instruct her to NOT blow her nose for at least 20 minutes to allow the medication to work. Please take Mucinex 600mg by mouth twice a day for 5 days to help break up the phlegm you have. For your blood pressure: please ONLY TAKE norvasc 10mg by mouth daily, Losartan/HCTZ 100mg/12.5mg by mouth daily - DO NOT TAKE HYDRALAZINE ANY MORE. YOUR BLOOD PRESSURE IS WELL CONTROLLED WITH THESE TWO MEDICATIONS. Pravastain 20mg by mouth at night with dinner for your cholesterol. Metformin 500mg by mouth twice a day with breakfast and dinner and Glimepiride 2mg by mouth with breakfast - for your diabetes and Gabapentin 300mg by mouth twice a day for your diabetic neuropathy. Please continue Risperidone, Olanzapine, Benztropine and Divalproex as instructed Please take care and be well. Referrals: [facility] at [facility] [Outside] <Oscar Nayak - Last Filed: 03/22/18 18:42> Provider - Provider Date of Admission: 03/21/18 04:59 Attending physician: Oscar Nayak MD Time Spent in preparation of Discharge (in minutes): 40 Hospital Course - Lab Results Lab Results: Micro Results 03/21/18 05:12 Blood Blood Culture - Preliminary NO GROWTH AFTER 24 HOURS 03/21/18 05:12 Blood Blood Culture - Preliminary NO GROWTH AFTER 24 HOURS 03/21/18 05:50 Sputum Gram Stain - Final Most Recent Lab Values WBC 10.8 K/uL (4.8-10.8) 03/22/18 08:19 RBC 3.54 Mil/uL (3.80-5.20) L 03/22/18 08:19 Hgb 11.2 g/dL (11.0-16.0) 03/22/18 08:19 Hct 33.0 % (34.0-47.0) L 03/22/18 08:19 MCV 93.4 fL (81.0-99.0) 03/22/18 08:19 MCH 31.6 pg (27.0-31.0) H 03/22/18 08:19 MCHC 33.9 g/dL (33.0-37.0) 03/22/18 08:19 RDW 15.2 % (11.5-14.5) H 03/22/18 08:19 Plt Count 249 K/uL (130-400) 03/22/18 08:19 MPV 8.2 fL (7.2-11.7) 03/22/18 08:19 Neut % (Auto) 78.0 % (50.0-75.0) H 03/22/18 08:19 Lymph % (Auto) 15.0 % (20.0-40.0) L 03/22/18 08:19 [place] % (Auto) 6.9 % (0.0-10.0) 03/22/18 08:19 Eos % (Auto) 0.0 % (0.0-4.0) 03/22/18 08:19 Baso % (Auto) 0.1 % (0.0-2.0) 03/22/18 08:19 Neut # (Auto) 8.4 K/uL (1.8-7.0) H 03/22/18 08:19 Lymph # (Auto) 1.6 K/uL (1.0-4.3) 03/22/18 08:19 [place] # (Auto) 0.7 K/uL (0.0-0.8) 03/22/18 08:19 Eos # (Auto) 0.0 K/uL (0.0-0.7) 03/22/18 08:19 Baso # (Auto) 0.0 K/uL (0.0-0.2) 03/22/18 08:19 PT 12.8 SECONDS (9.7-12.2) H 03/20/18 23:58 INR 1.2 03/20/18 23:58 APTT 41 SECONDS (21-34) H 03/20/18 23:58 Puncture Site Rr 03/20/18 00:05 pCO2 55 mm/Hg (35-45) H 03/20/18 00:05 pO2 83 mm/Hg (80-100) 03/20/18 00:05 HCO3 28.8 mmol/L (21-28) H 03/20/18 00:05 ABG pH 7.37 (7.35-7.45) 03/20/18 00:05 ABG Total CO2 33.5 mmol/L (22-28) H 03/20/18 00:05 ABG O2 Saturation 97.7 % (95-98) 03/20/18 00:05 ABG Base Excess 5.0 mmol/L (-2.0-3.0) H 03/20/18 00:05 Humberto Test Pos 03/20/18 00:05 ABG Potassium 3.3 mmol/L (3.6-5.2) L 03/20/18 00:05 A-a O2 Difference 48.0 mm/Hg 03/20/18 00:05 Respiratory Index 0.6 03/20/18 00:05 Sodium 143.0 mmol/l (132-148) 03/20/18 00:05 Chloride 108.0 mmol/L (98-107) H 03/20/18 00:05 Glucose 89 mg/dl (65-105) 03/20/18 00:05 Lactate 0.9 mmol/L (0.7-2.1) 03/20/18 00:05 Liter Flow 2.0 03/20/18 00:05 FiO2 28.0 % 03/20/18 00:05 Sodium 140 mmol/L (132-148) 03/22/18 08:19 Potassium 4.6 mmol/L (3.6-5.2) 03/22/18 08:19 Chloride 101 mmol/L (98-107) 03/22/18 08:19 Carbon Dioxide 28 mmol/L (22-30) 03/22/18 08:19 Anion Gap 16 (10-20) 03/22/18 08:19 BUN 26 mg/dL (7-17) H 03/22/18 08:19 Creatinine 1.2 mg/dL (0.7-1.2) 03/22/18 08:19 Est GFR ( Amer) 54 03/22/18 08:19 Est GFR (Non-Af Amer) 44 03/22/18 08:19 POC Glucose (mg/dL) 124 mg/dL (65-110) H 03/22/18 11:48 Random Glucose 210 mg/dL (65-105) H 03/22/18 08:19 Hemoglobin A1c 7.1 % (4.2-6.5) H 03/21/18 13:57 Calcium 9.6 mg/dl (8.6-10.4) 03/22/18 08:19 Phosphorus 3.7 mg/dL (2.5-4.5) 03/22/18 08:19 Magnesium 2.0 mg/dL (1.6-2.3) 03/22/18 08:19 Total Bilirubin 0.3 mg/dL (0.2-1.3) 03/22/18 08:19 AST 17 U/L (14-36) 03/22/18 08:19 ALT 15 U/L (9-52) 03/22/18 08:19 Alkaline Phosphatase 58 U/L (38-126) 03/22/18 08:19 Troponin I 0.0340 ng/mL (0.00-0.120) 03/20/18 23:58 NT-Pro-B Natriuret Pep 219 pg/mL (0-900) 03/20/18 23:58 Total Protein 7.4 g/dL (6.3-8.3) 03/22/18 08:19 Albumin 3.7 g/dL (3.5-5.0) 03/22/18 08:19 Globulin 3.7 gm/dL (2.2-3.9) 03/22/18 08:19 Albumin/Globulin Ratio 1.0 (1.0-2.1) 03/22/18 08:19 Triglycerides 79 mg/dL (0-149) D 03/21/18 13:57 Cholesterol 183 mg/dL (0-199) 03/21/18 13:57 LDL Cholesterol Direct 113 mg/dL (0-129) 03/21/18 13:57 HDL Cholesterol 38 mg/dL (30-70) 03/21/18 13:57 Procalcitonin < 0.05 NG/ML (0.19-0.49) L 03/21/18 13:57 Arterial Blood Potassium 3.3 mmol/L (3.6-5.2) L 03/20/18 00:05 Urine Color Yellow (YELLOW) 03/22/18 07:00 Urine Clarity Clear (Clear) 03/22/18 07:00 Urine pH 5.0 (5.0-8.0) 03/22/18 07:00 Ur Specific [place] 1.014 (1.003-1.030) 03/22/18 07:00 Urine Protein Negative mg/dL (NEGATIVE) 03/22/18 07:00 Urine Glucose (UA) Normal mg/dL (Normal) 03/22/18 07:00 Urine Ketones Negative mg/dL (NEGATIVE) 03/22/18 07:00 Urine Blood Negative (NEGATIVE) 03/22/18 07:00 Urine Nitrate Negative (NEGATIVE) 03/22/18 07:00 Urine Bilirubin Negative (NEGATIVE) 03/22/18 07:00 Urine Urobilinogen Normal mg/dL (0.2-1.0) 03/22/18 07:00 Ur Leukocyte Esterase Neg Padmaja/uL (Negative) 03/22/18 07:00 Urine RBC (Auto) < 1 /hpf (0-3) 03/22/18 07:00 Ur Squamous Epith Cells < 1 /hpf (0-5) 03/22/18 07:00 Influenza Typ A,B (EIA) Negative for flu a/b (NEGATIVE) 03/21/18 05:51 H.influenzae Type B Ag Negative (NEGATIVE) 03/21/18 13:57 Ur L.pneumophila Ag Negative (NEGATIVE) 03/21/18 13:57 Mycoplasma pneumon IgM Negative (NEGATIVE) 03/21/18 13:57 N.meningitidis ACY/W135 Negative (NEGATIVE) 03/21/18 13:57 N.meningi B/E.coli K1 Ag Negative (NEGATIVE) 03/21/18 13:57 Group B Strep Antigen Negative (NEGATIVE) 03/21/18 13:57 S. pneumoniae Antigen Negative (NEGATIVE) 03/21/18 13:57 Attending/Attestation - Attestation I have personally seen and examined this patient.: Yes I have fully participated in the care of the patient.: Yes I have reviewed all pertinent clinical information, including history, physical exam and plan: Yes Notes (Text): 03/22/18 18:41 Patient was seen and examined 10 AM. Exam, assessment and plan and discharge instructions were gone over with the resident. Oscar Nayak D.O.
--- NOTE | 2018-03-22 13:14 | CARD ---
APPROVED REPORT EKG Measurement Heart [id number] <Conclusion> Normal sinus rhythm with sinus arrhythmia Left axis deviation Septal infarct, age undetermined Lateral infarct, age undetermined Abnormal ECG
== END 2018-03-22 13:09 | disposition home or self-care (01) ==
LOC: C.ER 22:30 → INTOOBSV 03-21 04:59 → C.3T 03-21 04:59 → C.9E 03-21 05:33 → C.6T 03-21 05:39
PROVIDERS: ADMIT Family Medicine; ATTEND Family Medicine
DX: J44.1 Chronic obstructive pulmonary disease with (acute) exacerbation (principal); E11.40 Type 2 diabetes mellitus with diabetic neuropathy, unspecified; E78.00 Pure hypercholesterolemia, unspecified; E78.5 Hyperlipidemia, unspecified; F31.9 Bipolar disorder, unspecified; G20 Parkinson's disease; G47.33 Obstructive sleep apnea (adult) (pediatric)
CPT/HCPCS: 36415; 71045; 71275; 80053; 80061; 81001; 82803; 82948; 83036; 83735; 83880; 84100; 84145; 84484; 85025; 85610; 85730; 86403; 86738; 87040; 87070; 87449; 87804; 93005; 94640; 96374; 97116; 97162; 99285; G0378; G8978; G8979; J2920; J7040; Q9967

== ENCOUNTER 2018-05-24 14:39 | Emergency (ER) | payer MEDICAID, OTHER ==
[2018-05-24 14:46] VITALS: PULSE 64; TEMP 98.7
[2018-05-24 15:31] LABS: BASO # 0.1 K/uL (0.0-0.2); BASO % 0.8 % (0.0-2.0); EOS # 0.1 K/uL (0.0-0.7); EOS % 1.6 % (0.0-4.0); HEMOGLOBIN 11.5 g/dL (11.0-16.0); LYMPH # 4.2 K/uL (1.0-4.3); LYMPH % 46.7 % (20.0-40.0); MEAN CELL VOLUME 92.1 fL (81.0-99.0); MEAN CORPUSCULAR HEMOGLOBIN 30.7 pg (27.0-31.0); MEAN CORPUSCULAR HGB CONC 33.3 g/dL (33.0-37.0); MEAN PLATELET VOLUME 7.6 fL (7.2-11.7); MONO % 11.5 % (0.0-10.0); NEUT # 3.5 K/uL (1.8-7.0); NEUT % 39.4 % (50.0-75.0); RBC 3.76 Mil/uL (3.80-5.20); RED CELL DISTRIBUTION WIDTH 15.2 % (11.5-14.5)
--- NOTE | 2018-05-24 15:55 | C.PDOC ---
History Of Present Illness <LavelleEvinCovarrubias Aamir - Last Filed: 05/24/18 18:34> <Karena Saenz - Last Filed: 05/25/18 10:48> 72-year-old female, presents to the emergency department with complaints of lower back pain, left hip pain and right shoulder pain ongoing for the past week. No injury/trauma. Pt did not take any medication for the pain. Denies chest pain, nausea/vomiting, abdominal pain, fever, symptoms, shortness of breath or any other associated symptoms. No other complaints at this time. ( Satish Valderrama) History Per: Patient History/Exam Limitations: no limitations Current Symptoms Are (Timing): Still Present <Satish Valderrama Aamir - Last Filed: 05/24/18 18:34> <Karena Saenz - Last Filed: 05/25/18 10:48> Time Seen by Provider: 05/24/18 14:58 Chief Complaint (Nursing): Back Pain Past Medical History Reviewed: Historical Data, Nursing Documentation, Vital Signs - Medical History PMH: Anxiety, Arthritis, Bipolar Disorder, Depression, Diabetes, Emphysema, HTN , Hypercholesterolemia, Parkinson's Disease Family History: States: No Known Family Hx - Social History Hx Tobacco Use: Yes Hx Alcohol Use: No Hx Substance Use: No - Immunization History Hx Tetanus Toxoid Vaccination: No Hx Influenza Vaccination: No Hx Pneumococcal Vaccination: No <LavelleEvinCovarrubias M - Last Filed: 05/24/18 18:34> Vital Signs: Last Vital Signs Temp 98.7 F 05/24/18 14:43 Pulse 64 05/24/18 14:43 Resp 16 05/24/18 17:23 BP 101/62 05/24/18 17:23 Pulse Ox 96 05/24/18 18:35 Review Of Systems Constitutional: Negative for: Fever, Chills Cardiovascular: Negative for: Chest Pain Gastrointestinal: Negative for: Nausea, Vomiting Musculoskeletal: Positive for: Shoulder Pain (right), Back Pain (left, lower), Other (left hip) Neurological: Negative for: Weakness, Numbness <LavelleCovarrubias Aamir - Last Filed: 05/24/18 18:34> Physical Exam - Physical Exam Appears: Non-toxic, No Acute Distress Skin: Normal Color, Warm, Dry, No Rash Head: Atraumatic, Normacephalic Eye(s): bilateral: Normal Inspection, PERRL, EOMI Nose: Normal Oral Mucosa: Moist Lips: Normal Appearing Neck: Normal ROM Cardiovascular: Rhythm Regular, No Murmur Respiratory: Normal Breath Sounds, No Accessory Muscle Use Back: Normal Inspection, Paraspinal Tenderness (Left, lumbar) Extremity: Normal ROM, No Deformity ((+) tenderness to right shoulder, negative straight leg test, no calf swelling or tenderness, no palpable abdominal mass, nv intact, (+) pulses equal at dp/pt), No Swelling Neurological/Psych: Oriented x3, Normal Speech <Satish Valderrama - Last Filed: 05/24/18 18:34> ED Course And Treatment - Laboratory Results Result Diagrams: 05/24/18 15:26 05/24/18 15:26 ECG: Interpreted By Me, Viewed By Me ECG Interpretation: No Acute Changes Interpretation Of ECG: LAD. Poor R wave progression. Q wave V2. Non specific t wave changes Rate From EC O2 Sat by Pulse Oximetry: 96 - Other Rad xr back Interpretation: degenerative changes hip X-Ray: Interpreted by Me (no active disease) shoulder X-Ray: Interpreted by Me (arthritic changes) <Satish Valderrama - Last Filed: 05/24/18 18:34> - Laboratory Results Result Diagrams: 05/24/18 15:26 05/24/18 15:26 <Karena Saenz - Last Filed: 05/25/18 10:48> Medical Decision Making <Satish Valderrama - Last Filed: 05/24/18 18:34> <Karena Saenz - Last Filed: 05/25/18 10:48> Medical Decision Making: attempted to phone patient to let her know of the xray lumbar findings without answer. Please attempt to phone patient again. (Evin Valderramapson Aamir) Accession No. : [id number] Patient Name / ID : MAVERICK ROMEO / [id number] Exam Date : 05/24/2018 15:37:47 ( Approved ) Study Comment : Sex / Age : F / 72Y Creator : Brian Fernández MD Dictator : Brian Fernández MD Tool Maintenance Worker : Animal Ride Attendant : Brian Fernández MD Approver2 : Report Date : 05/24/2018 17:24:31 My Comment : Date of service: 05/24/2018 PROCEDURE: Radiographs of the Lumbar Spine. HISTORY: back pain COMPARISON: No prior. FINDINGS: BONES: The vertebral bodies are maintained in height. Normal alignment is maintained. There is flowing ossification of the anterior longitudinal ligament of the thoracic and upper lumbar spine consistent with DISH. There is suspected sclerosis of the pedicle bilaterally at L2 and on the right-sided L3 raising suspicion for a blastic metastasis. Recommend additional evaluation, with either radionuclide bone scan or magnetic resonance imaging. DISC SPACES: Narrowed L2-3 and L4-5 disc spaces consistent with degenerative disc disease. OTHER FINDINGS: None. 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 Recommend further radiographic evaluation as above. Multilevel degenerative disc disease. DISH. No acute fracture. XR result reviewed. Pt attempted to be called. No answer or voicemail. (Karena Saenz) Disposition Counseled Patient/Family Regarding: Studies Performed, Diagnosis, Need For Followup, Rx Given - Disposition Disposition Time: 17:14 <Satish Valderrama - Last Filed: 05/24/18 18:34> <Karena Saenz - Last Filed: 05/25/18 10:48> - Disposition Referrals: Sanjay Hilton MD [Staff Provider] - Disposition: HOME/ ROUTINE Condition: STABLE Additional Instructions: follow up with your doctor within 2 days call to make an appointment take medication as needed for pain return to ER if symptoms worsens or progress Prescriptions: Naproxen [Naprosyn] 500 mg PO BID PRN #16 tab PRN Reason: Pain, Moderate (4-7) Instructions: Low Back Pain in Adults, Joint Pain Forms: [facility] (Greek), General Discharge Instructions - Clinical Impression Clinical Impression: Low back pain, Arthralgia - Scribe Statement The provider has reviewed the documentation as recorded by the Scribe (Noam Vigil) <Satish Valderrama - Last Filed: 05/24/18 18:34> <Karena Saenz - Last Filed: 05/25/18 10:48> - Scribe Statement All medical record entries made by the Scribe were at my direction and personally dictated by me. I have reviewed the chart and agree that the record accurately reflects my personal performance of the history, physical exam, medical decision making, and the department course for this patient. I have also personally directed, reviewed, and agree with the discharge instructions and disposition. (Satish Valderrama)
[2018-05-24 16:58] LABS: ALB/GLOB RATIO 1.2 (1.0-2.1); ALT/SGPT 20 U/L (9-52); AST/SGOT 13 U/L (14-36); BLOOD UREA NITROGEN 13 mg/dL (7-17); CALCIUM 9.6 mg/dl (8.6-10.4); GFR AFRICAN-AMERICAN > 60; GFR NON-AFRICAN AMERICAN 55
--- NOTE | 2018-05-24 17:21 | RAD ---
Date of service: 05/24/2018 PROCEDURE: Radiographs of the Right Shoulder HISTORY: shoulder pain COMPARISON: No prior. FINDINGS: BONES: No fracture. JOINTS: Mild acromioclavicular degenerative arthritis. Bony spur arises from the inferior surface of the acromion. Glenohumeral articulation is unremarkable. SOFT TISSUES: Normal. OTHER FINDINGS: None. IMPRESSION: Acromioclavicular degenerative arthritis.
--- NOTE | 2018-05-24 17:21 | RAD ---
PROCEDURE: Left Hip X-ray Radiographs. HISTORY: pain COMPARISON: None. FINDINGS: BONES: Normal. No fracture. JOINTS: Normal. SOFT TISSUES: Normal. OTHER FINDINGS: None. IMPRESSION: Normal left hip radiographs.
[2018-05-24 17:24] VITALS: BP 101/62; RESP 16
--- NOTE | 2018-05-24 17:26 | RAD ---
Date of service: 05/24/2018 PROCEDURE: Radiographs of the Lumbar Spine. HISTORY: back pain COMPARISON: No prior. FINDINGS: BONES: The vertebral bodies are maintained in height. Normal alignment is maintained. There is flowing ossification of the anterior longitudinal ligament of the thoracic and upper lumbar spine consistent with DISH. There is suspected sclerosis of the pedicle bilaterally at L2 and on the right-sided L3 raising suspicion for a blastic metastasis. Recommend additional evaluation, with either radionuclide bone scan or magnetic resonance imaging. DISC SPACES: Narrowed L2-3 and L4-5 disc spaces consistent with degenerative disc disease. OTHER FINDINGS: None. 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 Recommend further radiographic evaluation as above. Multilevel degenerative disc disease. DISH. No acute fracture.
[2018-05-24 18:30] VITALS: O2SAT 96
== END 2018-05-24 17:23 | disposition home or self-care (01) ==
LOC: C.ER 14:39
DX: M54.5 Low back pain (principal); M25.552 Pain in left hip; M25.511 Pain in right shoulder
CPT/HCPCS: 72100; 73030; 73501; 80053; 82550; 84484; 85025; 96374; 99283; J1885

== ENCOUNTER 2018-09-17 10:18 | Emergency (ER) | payer MEDICAID, OTHER ==
[2018-09-17 10:45] VITALS: BP 192/80; PULSE 62; RESP 18; TEMP 98.6; O2SAT 96
--- NOTE | 2018-09-17 11:12 | C.PDOC ---
History Of Present Illness 72 y/o female presents to the ER for evaluation of chronic lower back pain and bilateral hip pain. Patient denies having direct trauma, bowel/ bladder incontinence, urinary frequency, dysuria, and hematuria. Of note, patient has history of bipolar disorder and she has good compliance with medications. Time Seen by Provider: 09/17/18 10:41 Chief Complaint (Nursing): Hip Pain History Per: Patient History/Exam Limitations: no limitations Onset/Duration Of Symptoms: Days Current Symptoms Are (Timing): Still Present Severity: Moderate Past Medical History Reviewed: Historical Data, Nursing Documentation, Vital Signs Vital Signs: Last Vital Signs Temp 98.6 F 09/17/18 10:40 Pulse 62 09/17/18 10:40 Resp 18 09/17/18 10:40 BP 192/80 H 09/17/18 10:40 Pulse Ox 96 09/17/18 10:40 - Medical History PMH: Anxiety, Arthritis, Bipolar Disorder, Depression, Diabetes, Emphysema, HTN, Hypercholesterolemia, Parkinson's Disease Denies: Chronic Kidney Disease Surgical History: No Surg Hx Family History: States: No Known Family Hx - Social History Hx Tobacco Use: Yes Hx Alcohol Use: No Hx Substance Use: No - Immunization History Hx Tetanus Toxoid Vaccination: No Hx Influenza Vaccination: No Hx Pneumococcal Vaccination: No Review Of Systems Except As Marked, All Systems Reviewed And Found Negative. Genitourinary: Negative for: Dysuria, Frequency, Incontinence, Hematuria Musculoskeletal: Positive for: Back Pain (lower back pain) Physical Exam - Physical Exam Appears: Non-toxic, No Acute Distress, Other (obese black female) Skin: Normal Color, Warm, Dry Head: Atraumatic, Normacephalic Eye(s): bilateral: Normal Inspection Nose: Normal Oral Mucosa: Moist Tongue: Other (tardive dyskinesia of tongue) Neck: Supple Chest: Symmetrical Cardiovascular: Rhythm Regular Respiratory: Normal Breath Sounds, No Rales, No Rhonchi, No Wheezing Back: Paraspinal Tenderness (vague bilateral lumbar paraspinal tenderness ) Extremity: Normal ROM, Tenderness (tenderness to sacroiliac region), No Swelling Neurological/Psych: Oriented x3, Normal Speech Gait: Steady ED Course And Treatment O2 Sat by Pulse Oximetry: 96 (RA) Pulse Ox Interpretation: Normal Medical Decision Making Medical Decision Making: chronic lower back discomfort, normal exam, no trauma baseline bipolar, tardive dyskinesia Disposition Doctor Will See Patient In The: Office Counseled Patient/Family Regarding: Studies Performed, Diagnosis - Disposition Referrals: Sanjay Hilton MD [Staff Provider] - Disposition: HOME/ ROUTINE Disposition Time: 11:12 Condition: GOOD Additional Instructions: motrin/advil/ibuprofen 400-600 mg every 6 hours as needed for lower back pain ice packs 1/2 hour per hour, nothing hot Instructions: Chronic Pain (DC) Forms: [employer] (Maldivian) - Clinical Impression Clinical Impression: Chronic pain - Scribe Statement The provider has reviewed the documentation as recorded by the Joshuaibe Medhat Foster Provider Attestation: All medical record entries made by the Joshuaibe were at my direction and personally dictated by me. I have reviewed the chart and agree that the record accurately reflects my personal performance of the history, physical exam, medical decision making, and the department course for this patient. I have also personally directed, reviewed, and agree with the discharge instructions and disposition.
== END 2018-09-17 11:57 | disposition home or self-care (01) ==
LOC: C.ER 10:18
DX: G89.29 Other chronic pain (principal)

== ENCOUNTER 2018-09-23 09:29 | Emergency (ER) | payer OTHER ==
[2018-09-23 10:01] VITALS: TEMP 98.4; O2SAT 98
[2018-09-23] MEDS ORDERED: Naproxen 550 mg Tab PO STA (10:21)
[2018-09-23] MEDS ORDERED: Naproxen 550 mg Tab PO ONE (10:31)
[2018-09-23 10:58] LABS: SQUAMOUS EPITHIAL 1 /hpf (0-5); URINE BILIRUBIN NEGATIVE (NEGATIVE); URINE BLOOD 1+ (NEGATIVE); URINE CLARITY Clear (Clear); URINE COLOR Yellow (YELLOW); URINE GLUCOSE (UA) NORMAL (Normal); URINE LEUKOCYTE ESTERASE NEG Leu/uL (Negative); URINE PROTEIN NEGATIVE (NEGATIVE); URINE UROBILINOGEN NORMAL mg/dL (0.2-1.0)
--- NOTE | 2018-09-23 11:57 | C.PDOC ---
History Of Present Illness 72 year old female presents to the ED for evaluation of lower back pain that radiates to the legs bilaterally for 2-3 weeks. Patient reports prior visit to the ED where she was treated for similar symptoms and given Ibuprofen with some relief. She now notes the pain is associated with dysuria which promoted ED visit. Denies fever, nausea, vomiting, diarrhea, flank pain, numbness, tingling, and any other associated symptoms. Time Seen by Provider: 09/23/18 10:06 Chief Complaint (Nursing): Back Pain History Per: Patient History/Exam Limitations: no limitations Onset/Duration Of Symptoms: Days Current Symptoms Are (Timing): Still Present Past Medical History Reviewed: Historical Data, Nursing Documentation, Vital Signs Vital Signs: Last Vital Signs Temp 98.4 F 09/23/18 09:56 Pulse 60 09/23/18 09:56 Resp 18 09/23/18 09:56 BP 158/88 H 09/23/18 09:56 Pulse Ox 98 09/23/18 09:56 - Medical History PMH: Anxiety, Arthritis, Bipolar Disorder, Depression, Diabetes, Emphysema, HTN, Hypercholesterolemia, Parkinson's Disease Denies: Chronic Kidney Disease Family History: States: Unknown Family Hx - Social History Hx Tobacco Use: Yes Hx Alcohol Use: No Hx Substance Use: No - Immunization History Hx Tetanus Toxoid Vaccination: No Hx Influenza Vaccination: No Hx Pneumococcal Vaccination: No Review Of Systems Constitutional: Negative for: Fever Gastrointestinal: Negative for: Nausea, Vomiting, Diarrhea, Other (flank pain. ) Musculoskeletal: Positive for: Back Pain (lower.), Leg Pain (bilaterally, secondary to the back pain.) Neurological: Negative for: Weakness, Numbness, Incoordination Physical Exam - Physical Exam Appears: Well, Non-toxic, No Acute Distress, Other (comfortable.) Skin: Normal Color, Warm, Dry Head: Atraumatic, Normacephalic Eye(s): bilateral: Normal Inspection Chest: Symmetrical, No Deformity Cardiovascular: Rhythm Regular, No Murmur Respiratory: Normal Breath Sounds, No Rales, No Rhonchi, No Wheezing Back: Paraspinal Tenderness (lumbar. ) Neurological/Psych: Oriented x3, Normal Speech, Normal Motor, Normal Sensation, Normal Reflexes ED Course And Treatment O2 Sat by Pulse Oximetry: 98 (RA) Pulse Ox Interpretation: Normal Medical Decision Making Medical Decision Making: Plan: -Naproxen Cyclobenzaprine Urinalysis Progress/Update: Urine looks normal. Patient stable for discharge home. Prescribed Flexeril and Naproxen. Disposition Counseled Patient/Family Regarding: Diagnosis, Need For Followup, Rx Given - Disposition Referrals: Sanjay Hilton MD [Staff Provider] - Disposition: HOME/ ROUTINE Disposition Time: 12:00 Condition: STABLE Additional Instructions: FOLLOW UP WITH YOUR DOCTOR IN 1-2 DAYS USE MEDICATIONS DIRECTED RETURN TO ER IF SYMPTOMS WORSEN Prescriptions: Cyclobenzaprine [Flexeril] 10 mg PO BID PRN #15 tab PRN Reason: Muscle Spasm Naproxen 375 mg PO BID PRN #20 tablet PRN Reason: pain Forms: [employer] (Australian) Print Language: FIJIAN - Clinical Impression Clinical Impression: Low back pain - Scribe Statement The provider has reviewed the documentation as recorded by the Scribe (Susy Holloway) Provider Attestation: All medical record entries made by the Scribe were at my direction and p ersonally dictated by me. I have reviewed the chart and agree that the record accurately reflects my personal performance of the history, physical exam, medical decision making, and the department course for this patient. I have also personally directed, reviewed, and agree with the discharge instructions and disposition.
[2018-09-24 00:07] VITALS: BP 145/85; PULSE 75; RESP 16
== END 2018-09-23 12:09 | disposition home or self-care (01) ==
LOC: C.ER 09:29
DX: M54.5 Low back pain (principal)

== ENCOUNTER 2018-10-28 09:34 | Inpatient (IN) | payer OTHER ==
--- NOTE | 2018-10-28 10:54 | C.PDOC ---
History Of Present Illness 72 year old female with PMHx of arthritis, diabetes, HTN, and Parkinson's disease presents to the ED complaining of chronic bilateral shoulder pain and hip pain. Reports pain is worse on the right side. States she is usually able to ambulate, but today she is unable to walk due to the pain. Denies taking any medications for the pain. Time Seen by Provider: 10/28/18 10:01 Chief Complaint (Nursing): Lower Extremity Problem/Injury History Per: Patient History/Exam Limitations: no limitations Onset/Duration Of Symptoms: Days Current Symptoms Are (Timing): Still Present - Hip Currently Unable To: Bend Or Move Past Medical History Reviewed: Historical Data, Nursing Documentation, Vital Signs Vital Signs: Last Vital Signs Temp 98.1 F 10/28/18 09:45 Pulse 68 10/28/18 09:45 Resp 16 10/28/18 09:45 BP 145/73 10/28/18 09:45 Pulse Ox 93 L 10/28/18 09:45 - Medical History PMH: Anxiety, Arthritis, Bipolar Disorder, Depression, Diabetes, Emphysema, HTN, Hypercholesterolemia, Parkinson's Disease Denies: Chronic Kidney Disease Surgical History: No Surg Hx Family History: States: No Known Family Hx - Social History Hx Tobacco Use: Yes Hx Alcohol Use: No Hx Substance Use: No - Immunization History Hx Tetanus Toxoid Vaccination: No Hx Influenza Vaccination: No Hx Pneumococcal Vaccination: No Review Of Systems Except As Marked, All Systems Reviewed And Found Negative. Musculoskeletal: Positive for: Shoulder Pain (b/l), Other (b/l hip pain ) Neurological: Negative for: Weakness, Numbness Physical Exam - Physical Exam Appears: Non-toxic, No Acute Distress Skin: Warm, Dry, No Rash Head: Normacephalic Eye(s): bilateral: Normal Inspection Nose: Normal Oral Mucosa: Moist Neck: Supple Chest: Symmetrical Cardiovascular: Rhythm Regular Respiratory: Normal Breath Sounds, No Rales, No Rhonchi, No Wheezing Gastrointestinal/Abdominal: Soft, No Tenderness Extremity: Tenderness (b/l shoulder, b/l hips ), Capillary Refill (less than 2 sec to b/l shoulder, b/l hip ), No Deformity, No Swelling Neurological/Psych: Oriented x3, Normal Speech, Normal Motor, Normal Sensation Gait: Steady ED Course And Treatment - Laboratory Results Result Diagrams: 10/28/18 13:22 10/28/18 13:22 O2 Sat by Pulse Oximetry: 93 (RA) Pulse Ox Interpretation: Abnormal - Other Rad XR b/l shoulder X-Ray: Viewed By Me, Read By Radiologist Interpretation: Accession No. : [id number]. Patient Name / ID : MAVERICK ROMEO / [id number]. Exam Date : 10/28/2018 10:43:16 ( Approved ). Study Comment : Sex / Age : F / 72Y. Creator : Xander Fuentes MD. Dictator : Xander Fuentes MD. Dairy Farm Worker : Cruise Director : Xander Fuentes MD. Approver2 : Report Date : 10/28/2018 11:20:48. My Comment : *. Date of service: In. 10/28/2018. PROCEDURE: Radiographs of both shoulders. HISTORY: Pain. No history of recent/ related trauma provided. COMPARISON: No prior. FINDINGS: BONES: Right shoulder: No visible fracture. Left shoulder: No fracture identified. JOINTS: Right shoulder: Acromioclavicular and glenohumeral degenerative changes, moderate in severity. Left shoulder: Symmetrical degenerative changes. SOFT TISSUES: Right shoulder: Grossly unremarkable. Right shoulder: Grossly unremarkable. OTHER FINDINGS: None. IMPRESSION: No acute findings related to/ accounting for the clinical presentation. Bilateral and approximately symmetrical acromioclavicular and glenohumeral degenerative change.. XR pel/hip X-Ray: Viewed By Me, Read By Radiologist Interpretation: Accession No. : [id number]. Patient Name / ID : MAVERICK ROMEO / [id number]. Exam Date : 10/28/2018 10:53:46 ( Approved ). Study Comment : Sex / Age : F / 72Y. Creator : Xander Fuentes MD. Dictator : Xander Fuentes MD. Dairy Farm Worker : Cruise Director : Xander Fuentes MD. Approver2 : Report Date : 10/28/2018 11:21:34. My Comment : . PROCEDURE: Radiographs of the pelvis and bilateral hips. HISTORY: Pain. No history of recent/ related trauma provided. COMPARISON: None. FINDINGS: BONES: Pelvis: Unremarkable. Right hip:Unremarkable. Left hip:Unremarkable. JOINTS: Right hip: Moderate degenerative change. Left hip: Symmetrical degenerative change. Sacroiliac Joints: Unremarkable. Pubic symphysis: Unremarkable. SOFT TISSUES: Normal. OTHER FINDINGS: None. IMPRESSION: No acute findings related to/ accounting for the clinical presentation. Moderate and approximately symmetrical degenerative change. - CT Scan/US CTA chest Other Rad Studies (CT/US): Read By Radiologist, Radiology Report Reviewed CT/US Interpretation: Accession No. : [id number]. Patient Name / ID : MAVERICK ROMEO / [id number]. Exam Date : 10/28/2018 15:28:21 ( Approved ). Study Com ment : Sex / Age : F / 72Y. Creator : Nikkie Copeland. Dictator : Brian Fernádnez MD. Dairy Farm Worker : Cruise Director : Brian Fernández MD. Approver2 : Report Date : 10/28/2018 15:39:39. My Comment : . Date of service: 10/28/2018. PROCEDURE: CT Chest with contrast (Pulmonary Angiogram). HISTORY: weakness, near syncope, SOB, elevated d dimer. COMPARISON: 03/21/2018. TECHNIQUE: Axial computed tomography images were obtained of the chest in the pulmonary arterial phase of enhancement. Coronal an d sagittal reformatted images were created and reviewed. Intravenous contrast dose: 100 mL Visipaque 320. Radiation dose: Total exam DLP = 553.43 mGy-cm. This CT exam was performed using one or more of the following dose reduction techniques: Automated exposure control, adjustment of the mA and/or kV according to patient size, and/or use of iterative reconstruction technique. FINDINGS: PULMONARY ARTERIES: No evidence of pulmonary embolism. Dilatation of the main pulmonary artery to approximately 4.3 cm diameter. This may be associated with pulmonary arterial hypertension. AORTA: Mild aneurysmal dilatation of the ascending thoracic aorta to approximately 4.0 cm diameter. There is minimal atherosclerotic calcification thoracic aorta. LUNGS: Patchy areas of jahaira consolidation in both lower lobes, right greater than left. Patchy consolidation in the lateral segment of the right middle lobe. Scattered fine nodular densities in the right middle lobe and right upper lobe some of which create a tree in bud appearance consistent with nonspecific small airways disease. Possible multi lobar pneumonia/small airways disease. Less likely inflammatory. PLEURAL SPACES: Unremarkable. No effusion or pneumothorax. HEART: Unremarkable. No cardiomegaly. No significant pericardial effusion. LYMPH NODES: No lymphadenopathy. BONES, CHEST WALL: No acute fracture. Note is made of DISH. Multiple well-defined small lytic lesions throughout all of the vertebrae raising suspicion of multiple myeloma. Please correlate with laboratory evaluation and history. OTHER FINDINGS: Unremarkable. IMPRESSION: No evidence of pulmonary embolism. Multi lobar infectious/inflammatory process. Numerous small circumscribed lytic lesions throughout the vertebral bodies raising suspicion of multiple myeloma. Incidentally noted DISH. Progress Note: Patient treated with Toradol. XR of bilateral shoulders and hips ordered, shows DJD. Patient was trated with Toradol. On re-evaluation she still not feeling well. Patient now sts she is not feeling well for a few days now, feeling weak and SOB. She sts she was even too week to get off bed. Labs and CXR were ordered. CBC was significant for leucocytosis, CXR shows signs of pneumonia. D dimer was elevated. CTA chest was ordered, negative for PE, but confirms pneumonia and shows signs of multiple myeloma. Avelox IV started. Case was d/w Hospitalist smoke control supervisor who accepted patient to his service for an admission. Disposition - Disposition Disposition: HOSPITALIZED Disposition Time: 17:02 Condition: FAIR Forms: [facility] (Ivorian) - Clinical Impression Clinical Impression: Pneumonia, Multiple myeloma, Body aches - PA / TIE INSPECTOR / Resident Statement MD/DO has reviewed & agrees with the documentation as recorded. - Scribe Statement The provider has reviewed the documentation as recorded by the Scribe Sara Zhu All medical record entries made by the Scribe were at my direction and personally dictated by me. I have reviewed the chart and agree that the record accurately reflects my personal performance of the history, physical exam, medical decision making, and the department course for this patient. I have also personally directed, reviewed, and agree with the discharge instructions and disposition. Decision To Admit - Pt Status Changed To: Hospital Disposition Of: Inpatient - Admit Certification Admit to Inpatient:: After my assessment, the patient will require hospitalization for at least two midnights. This is because of the severity of symptoms shown, intensity of services needed, and/or the medical risk in this patient being treated as an outpatient. - InPatient: Physician Admission Certification: I certify that this patient requires 2 or more midnights of care for the following reason:: Patient will need IV antibiotics and work up for newerly diagnosed multiple myeloma. - . Bed Request Type: Regular Admitting Physician: Brian Gilmore Patient Diagnosis: Pneumonia, Multiple myeloma, Body aches
--- NOTE | 2018-10-28 11:24 | RAD ---
Date of service: In 10/28/2018 PROCEDURE: Radiographs of both shoulders HISTORY: Pain. No history of recent/ related trauma provided COMPARISON: No prior. FINDINGS: BONES: Right shoulder: No visible fracture. Left shoulder: No fracture identified JOINTS: Right shoulder: Acromioclavicular and glenohumeral degenerative changes, moderate in severity. Left shoulder: Symmetrical degenerative changes SOFT TISSUES: Right shoulder: Grossly unremarkable. Right shoulder: Grossly unremarkable. OTHER FINDINGS: None. IMPRESSION: No acute findings related to/ accounting for the clinical presentation. Bilateral and approximately symmetrical acromioclavicular and glenohumeral degenerative change..
--- NOTE | 2018-10-28 11:25 | RAD ---
PROCEDURE: Radiographs of the pelvis and bilateral hips HISTORY: Pain. No history of recent/ related trauma provided COMPARISON: None. FINDINGS: BONES: Pelvis: Unremarkable. Right hip:Unremarkable. Left hip:Unremarkable. JOINTS: Right hip: Moderate degenerative change. Left hip: Symmetrical degenerative change. Sacroiliac Joints: Unremarkable. Pubic symphysis: Unremarkable. SOFT TISSUES: Normal. OTHER FINDINGS: None. IMPRESSION: No acute findings related to/ accounting for the clinical presentation. Moderate and approximately symmetrical degenerative change.
[2018-10-28 13:29] LABS: BASO # 0.1 K/uL (0.0-0.2); BASO % 0.7 % (0.0-2.0); EOS # 0.2 K/uL (0.0-0.7); EOS % 1.6 % (0.0-4.0); HEMOGLOBIN 11.6 g/dL (11.0-16.0); LYMPH # 3.6 K/uL (1.0-4.3); LYMPH % 23.6 % (20.0-40.0); MEAN CORPUSCULAR HEMOGLOBIN 30.7 pg (27.0-31.0); MEAN CORPUSCULAR HGB CONC 32.2 g/dL (33.0-37.0); MEAN PLATELET VOLUME 6.8 fL (7.2-11.7); MONO % 6.6 % (0.0-10.0); NEUT # 10.3 K/uL (1.8-7.0); NEUT % 67.5 % (50.0-75.0); NRBC % 0.1 % (0.0-2.0); RBC 3.78 Mil/uL (3.80-5.20); RED CELL DISTRIBUTION WIDTH 16.3 % (11.5-14.5)
[2018-10-28 13:31] LABS: MEAN CELL VOLUME 95.3 fL (81.0-99.0); WHITE BLOOD COUNT 15.3 K/uL (4.8-10.8)
[2018-10-28 13:39] LABS: PROTHROMBIN TIME 15.3 SECONDS (9.7-12.2)
[2018-10-28 13:40] LABS: INR 1.4
[2018-10-28 13:43] LABS: ALB/GLOB RATIO 0.9 (1.0-2.1); ALBUMIN 3.4 g/dL (3.5-5.0); ALT/SGPT 8 U/L (9-52); AST/SGOT 36 U/L (14-36); BLOOD UREA NITROGEN 12 mg/dL (7-17); CALCIUM 9.3 mg/dl (8.6-10.4); GFR NON-AFRICAN AMERICAN 55
[2018-10-28 13:54] LABS: CK-MB 1.24 ng/mL (0.0-3.38)
--- NOTE | 2018-10-28 14:02 | RAD ---
Date of service: 10/28/2018 PROCEDURE: CHEST RADIOGRAPH, 1 VIEW HISTORY: near syncope COMPARISON: 03/21/2018 FINDINGS: LUNGS: Patchy opacity at right lung base suspicious for pneumonia. Follow-up advised. No other abnormal opacity elsewhere. PLEURA: No pneumothorax or pleural fluid seen. CARDIOVASCULAR: No aortic atherosclerotic calcification present. Normal. OSSEOUS STRUCTURES: No significant abnormalities. VISUALIZED UPPER ABDOMEN: Normal. OTHER FINDINGS: None. IMPRESSION: Suspect early infiltrate right base. Follow-up advised.
[2018-10-28] MEDS ORDERED: Iodixanol 320 MG/ML 100 ML BOTTLE IV ONE (15:10)
--- NOTE | 2018-10-28 16:15 | CT ---
Date of service: 10/28/2018 PROCEDURE: CT Chest with contrast (Pulmonary Angiogram) HISTORY: weakness, near syncope, SOB, elevated d dimer COMPARISON: 03/21/2018 TECHNIQUE: Axial computed tomography images were obtained of the chest in the pulmonary arterial phase of enhancement. Coronal and sagittal reformatted images were created and reviewed. Intravenous contrast dose: 100 mL Visipaque 320 Radiation dose: Total exam DLP = 553.43 mGy-cm. This CT exam was performed using one or more of the following dose reduction techniques: Automated exposure control, adjustment of the mA and/or kV according to patient size, and/or use of iterative reconstruction technique. FINDINGS: PULMONARY ARTERIES: No evidence of pulmonary embolism. Dilatation of the main pulmonary artery to approximately 4.3 cm diameter. This may be associated with pulmonary arterial hypertension. AORTA: Mild aneurysmal dilatation of the ascending thoracic aorta to approximately 4.0 cm diameter. There is minimal atherosclerotic calcification thoracic aorta. LUNGS: Patchy areas of jahaira consolidation in both lower lobes, right greater than left. Patchy consolidation in the lateral segment of the right middle lobe. Scattered fine nodular densities in the right middle lobe and right upper lobe some of which create a tree in bud appearance consistent with nonspecific small airways disease. Possible multi lobar pneumonia/small airways disease. Less likely inflammatory. PLEURAL SPACES: Unremarkable. No effusion or pneumothorax. HEART: Unremarkable. No cardiomegaly. No significant pericardial effusion. LYMPH NODES: No lymphadenopathy. BONES, CHEST WALL: No acute fracture. Note is made of DISH. Multiple well-defined small lytic lesions throughout all of the vertebrae raising suspicion of multiple myeloma. Please correlate with laboratory evaluation and history. OTHER FINDINGS: Unremarkable. IMPRESSION: No evidence of pulmonary embolism. Multi lobar infectious/inflammatory process. Numerous small circumscribed lytic lesions throughout the vertebral bodies raising suspicion of multiple myeloma. Incidentally noted DISH.
[2018-10-28 16:37] LABS: URINE BACTERIA RARE (<OCC); URINE BILIRUBIN NEGATIVE (NEGATIVE); URINE BLOOD NEGATIVE (NEGATIVE); URINE CLARITY Clear (Clear); URINE COLOR Yellow (YELLOW); URINE GLUCOSE (UA) NORMAL (Normal); URINE LEUKOCYTE ESTERASE NEG Leu/uL (Negative); URINE PROTEIN NEGATIVE (NEGATIVE)
[2018-10-28] MEDS ORDERED: Moxifloxacin IV 400mg/250ml NS 400 MG/250 ML BAG IV ONE (16:40)
[2018-10-28] MEDS ORDERED: Azithromycin 500 MG in Sodium Chloride 0.9% 250 ML IVPB SCH (19:45)
--- NOTE | 2018-10-28 19:54 | CP.PCM.HP ---
<Frankie Johnston - Last Filed: 10/28/18 20:54> History of Present Illness - History of Present Illness History of Present Illness: PGY-1 H&P note for Dr Brian Gilmore cc: bilateral hip and right shoulder pain Patient is a 72 year old Female with pmhx of Bipolar disorder, DMII, HTN, HLD, Parkison's disease that came to the ED for bilateral hip pain radiating to the lower extremity as well as right shoulder pain. Patient states this pain started about 4 years ago, but have noticed weakness in her legs and increasing pain in the past 7 weeks, when patient started to become bed bound, having very little strength to get up from bed. Patient states she cannot walk, and uses a walker most of the time. Reports multiple falls, recent one happening 3 weeks ago and another one happening even more recently, but cannot state the exact date. Patient describe shoulder pain as achy, and hip pain as excruciating pain, being the worst when patient is lying down on her back. Patient takes tylenol and aleve,with some relief for pain and has taken muscle relaxant in the past, but has only made her weaker. Patient admits to some fever and chiils, as well as chest tightness but no shortness of breath. Admits to some dizziness at times, often related to hearing difficulty. Patient denies coughing, headache, nausea, abdominal pain vomiting, diarrhea, constipation, rash. Patient admits to unintentional weight loss of about 40-50 pounds in the past 5 months, as well as decrease in appetite. denies any urinary symptoms or night sweats. PMD: DR Sanjay Hilton Code status: Full code - no proxy assigned - no AD Allergies: denies Pmhx: as states above in HPI Pshx: denies Fmhx: Mental illness (several members) Sochx: 10 cigarettes/day x 40 years ( used to smoke 1 pack 1/2 daily), denies alcohol or drug use Meds: depakote, gabapentin , risperidone, benztropine, aspirin, aleve Present on Admission - Present on Admission Any Indicators Present on Admission: No Review of Systems - Review of Systems All systems: reviewed and no additional remarkable complaints except Review of Systems: as stated in HPI Past Patient History - Infectious Disease Hx of Infectious Diseases: None - Past Medical History & Family History Past Medical History?: Yes - Past Social History Smoking Status: Heavy Smoker > 10 Cigarettes Daily - CARDIAC Hx Hypercholesterolemia: Yes Hx Hypertension: Yes - PULMONARY Hx Emphysema: Yes - NEUROLOGICAL Hx Parkinson's Disease: Yes - HEENT Other/Comment: wear eyeglasses - RENAL Hx Chronic Kidney Disease: No - ENDOCRINE/METABOLIC Hx Endocrine Disorders: Yes Hx Diabetes Mellitus Type 2: Yes - HEMATOLOGICAL/ONCOLOGICAL Hx Blood Disorders: No - INTEGUMENTARY Hx Dermatological Problems: No - MUSCULOSKELETAL/RHEUMATOLOGICAL Hx Arthritis: Yes - GASTROINTESTINAL Hx Gastrointestinal Disorders: No - GENITOURINARY/GYNECOLOGICAL Hx Genitourinary Disorders: No - PSYCHIATRIC Hx Anxiety: Yes Hx Bipolar Disorder: Yes Hx Depression: Yes Hx Substance Use: No - SURGICAL HISTORY Hx Surgeries: No - ANESTHESIA Hx Anesthesia: No Hx Anesthesia Reactions: No Hx Malignant Hyperthermia: No Meds Allergies/Adverse Reactions: Allergies Allergy/AdvReac Type Severity Reaction Status Date / Time No Known Allergies Allergy Verified 07/23/18 11:19 Physical Exam - Constitutional Appears: Non-toxic, No Acute Distress Additional comments: Obese - Head Exam Head Exam: ATRAUMATIC, NORMOCEPHALIC - Eye Exam Eye Exam: EOMI, Normal appearance, PERRL - ENT Exam ENT Exam: Mucous Membranes Moist - Neck Exam Neck exam: Positive for: Full Rom. Negative for: Lymphadenopathy, Tenderness - Respiratory Exam Respiratory Exam: Decreased Breath Sounds, Rhonchi (auscultated anterior right chest area ) - Cardiovascular Exam Cardiovascular Exam: Tachycardia, REGULAR RHYTHM, +S1, +S2 - GI/Abdominal Exam GI & Abdominal Exam: Normal Bowel Sounds, Soft. absent: Distended, Guarding, Organomegaly, Tenderness - Extremities Exam Extremities exam: Positive for: pedal pulses present. Negative for: calf tenderness, joint swelling, pedal edema, tenderness - Back Exam Back exam: FULL ROM, NORMAL INSPECTION. absent: paraspinal tenderness, rash noted, tenderness, vertebral tenderness - Neurological Exam Neurological exam: Alert, Oriented x3 Additional comments: unintelligible speech - Expanded Neurological Exam Expanded Neuro motor strength exam: Left Upper Extremity: 5, Right Upper Extremity: 5, Left Lower Extremity: 3, Right Lower Extremity: 3 - Psychiatric Exam Psychiatric exam: Normal Affect, Normal Mood - Skin Skin Exam: Dry, Intact, Normal Color, Warm Results - Vital Signs Recent Vital Signs: Last Vital Signs Temp 97.9 F 10/28/18 18:00 Pulse 77 10/28/18 18:00 Resp 20 10/28/18 18:00 BP 167/79 H 10/28/18 18:00 Pulse Ox 96 10/28/18 17:37 - Labs Result Diagrams: 10/28/18 13:22 10/28/18 13:22 Labs: Laboratory Results - last 24 hr 10/28/18 10/28/18 10/28/18 12:46 13:22 13:22 WBC 15.3 H D RBC 3.78 L Hgb 11.6 Hct 36.0 MCV 95.3 D MCH 30.7 MCHC 32.2 L RDW 16.3 H Plt Count 414 H D MPV 6.8 L Neut % (Auto) 67.5 Lymph % (Auto) 23.6 [place] % (Auto) 6.6 Eos % (Auto) 1.6 Baso % (Auto) 0.7 Neut # (Auto) 10.3 H Lymph # (Auto) 3.6 [place] # (Auto) 1.0 H Eos # (Auto) 0.2 Baso # (Auto) 0.1 PT 15.3 H INR 1.4 APTT 40 H D-Dimer, Quantitative 758 H Sodium Potassium Chloride Carbon Dioxide Anion Gap BUN Creatinine Est GFR ( Amer) Est GFR (Non-Af Amer) POC Glucose (mg/dL) 82 Random Glucose Calcium Total Bilirubin AST ALT Alkaline Phosphatase Total Creatine Kinase CK-MB (Mass) Troponin I C-Reactive Protein Total Protein Albumin Globulin Albumin/Globulin Ratio Urine Color Urine Clarity Urine pH Ur Specific [place] Urine Protein Urine Glucose (UA) Urine Ketones Urine Blood Urine Nitrate Urine Bilirubin Urine Urobilinogen Ur Leukocyte Esterase Urine WBC (Auto) Urine RBC (Auto) Urine Bacteria 10/28/18 10/28/18 10/28/18 13:22 16:45 19:33 WBC RBC Hgb Hct MCV MCH MCHC RDW Plt Count MPV Neut % (Auto) Lymph % (Auto) [place] % (Auto) Eos % (Auto) Baso % (Auto) Neut # (Auto) Lymph # (Auto) [place] # (Auto) Eos # (Auto) Baso # (Auto) PT INR APTT D-Dimer, Quantitative Sodium 143 Potassium 4.3 Chloride 105 Carbon Dioxide 32 H Anion Gap 11 BUN 12 Creatinine 1.0 Est GFR ( Amer) > 60 Est GFR (Non-Af Amer) 55 POC Glucose (mg/dL) Random Glucose 128 H D Calcium 9.3 Total Bilirubin 0.4 AST 36 D ALT 8 L D Alkaline Phosphatase 72 Total Creatine Kinase 49 CK-MB (Mass) 1.24 Troponin I 0.0170 C-Reactive Protein 61.90 H Total Protein 7.3 Albumin 3.4 L Globulin 3.9 Albumin/Globulin Ratio 0.9 L Urine Color Yellow Urine Clarity Clear Urine pH 5.0 Ur Specific [place] 1.028 Urine Protein Negative Urine Glucose (UA) Normal Urine Ketones Negative Urine Blood Negative Urine Nitrate Negative Urine Bilirubin Negative Urine Urobilinogen 2.0 H Ur Leukocyte Esterase Neg Urine WBC (Auto) 1 Urine RBC (Auto) 3 Urine Bacteria Rare Assessment & Plan - Assessment and Plan (Free Text) Plan: Lytic lesions vertebral bodies- suspect Multiple myeloma vs metastatic disease - Chest CT - multilobar infection vs inflammatory process, numerous lytic lesions through vertebral bodies raising suspicion of multiple myeloma - Past lesions seen in previous imaging on past admissions/ED visits - Protein electrophoresis, 24 Hr Urine (UPEP), Protein electrophoresis, 24 Hr serum (SPEP) - consider Immunofixation electrophoresis (MJ) for confirmation of tests -f/u - free Solomons/Lambda - f/u - CRP, Ca125, Ca 19-9 - IgA, IgG - CT head w/o contrast - CT abdomen and pelvis w/o contrast - CT cervical, thoracic and lumbar spine w/o contrast - Dr Hdz - Heme/Onc consult - This case will be seen by Dr Francisco - help is appreciated - will perform Breast examination in the am to look for masses or indications of breast malignancy. - follow up am labs B/L hip pain - Hip/pelvis xray - no acute findings m moderate approx degenerative changes - f/u CT abd/pelvis -f/u - tylenol Q6 PRN for pain right shoulder pain - shoulder xray - no acute changes, b/l degenerative changes - Tylenol Q6 PRN for pain r/o respiratory infection - chest xray - suspected early infiltrate Rt base - CT chest - multilobar infection vs inflamattory process, no evidence of PE - f/u blood culture, urine cultures - Meds: -Rocephin 1gm IV BID - Azithromycin 500mg IV QD bipolar disorder - continue home meds - risperidone 1mg BID - Depakote 500mg PO BID Parkinson disease - continue home med benztropine 1mg BID hx of diabetes - not currently taking DM medications - HbA1c -f/u - Accuchecks - ISS low dose - hypoglycemia protocol - gabapentin 300mg PO BID for diabetic neuropathy hx of HTN - not currently taking any HTN medications - continue monitoring vitals - continue aspirin 81mg PO daily hx of HLD - not on any statin medication - Lipid panel - f/u ppx -DVT: Scds, Heparin 5000U SC Q12h - GI: pepcid 20 mg IVP -Diet: Diabetic low carb consistent diet, 2g Na - 2L O2 NC PRN -PT/OT eval - help is appreciated -Patient is full code - unclear/undecided who proxy is for pt - no advance directive Plan discussed with Dr Brian Johnston, PGY-1 - Date & Time Date: 10/28/18 Time: 18:30 <Brian Gilmore - Last Filed: 10/29/18 11:11> Results - Vital Signs Recent Vital Signs: Last Vital Signs Temp 98.9 F 10/29/18 08:00 Pulse 87 10/29/18 08:00 Resp 20 10/29/18 08:00 BP 167/77 H 10/29/18 08:00 Pulse Ox 97 10/29/18 08:00 - Labs Result Diagrams: 10/29/18 06:30 10/29/18 06:30 Labs: Laboratory Results - last 24 hr 10/28/18 10/28/18 10/28/18 12:46 13:22 13:22 WBC 15.3 H D RBC 3.78 L Hgb 11.6 Hct 36.0 MCV 95.3 D MCH 30.7 MCHC 32.2 L RDW 16.3 H Plt Count 414 H D MPV 6.8 L Neut % (Auto) 67.5 Lymph % (Auto) 23.6 [place] % (Auto) 6.6 Eos % (Auto) 1.6 Baso % (Auto) 0.7 Neut # (Auto) 10.3 H Lymph # (Auto) 3.6 [place] # (Auto) 1.0 H Eos # (Auto) 0.2 Baso # (Auto) 0.1 PT 15.3 H INR 1.4 APTT 40 H D-Dimer, Quantitative 758 H Sodium Potassium Chloride Carbon Dioxide Anion Gap BUN Creatinine Est GFR ( Amer) Est GFR (Non-Af Amer) POC Glucose (mg/dL) 82 Random Glucose Hemoglobin A1c Calcium Total Bilirubin AST ALT Alkaline Phosphatase Total Creatine Kinase CK-MB (Mass) Troponin I C-Reactive Protein Total Protein Albumin Globulin Albumin/Globulin Ratio Triglycerides Cholesterol LDL Cholesterol Direct HDL Cholesterol CA 19-9 Antigen CA 125 Antigen Urine Color Urine Clarity Urine pH Ur Specific [place] Urine Protein Urine Glucose (UA) Urine Ketones Urine Blood Urine Nitrate Urine Bilirubin Urine Urobilinogen Ur Leukocyte Esterase Urine WBC (Auto) Urine RBC (Auto) Urine Bacteria IgG IgA 10/28/18 10/28/18 10/28/18 13:22 16:45 19:33 WBC RBC Hgb Hct MCV MCH MCHC RDW Plt Count MPV Neut % (Auto) Lymph % (Auto) [place] % (Auto) Eos % (Auto) Baso % (Auto) Neut # (Auto) Lymph # (Auto) [place] # (Auto) Eos # (Auto) Baso # (Auto) PT INR APTT D-Dimer, Quantitative Sodium 143 Potassium 4.3 Chloride 105 Carbon Dioxide 32 H Anion Gap 11 BUN 12 Creatinine 1.0 Est GFR ( Amer) > 60 Est GFR (Non-Af Amer) 55 POC Glucose (mg/dL) Random Glucose 128 H D Hemoglobin A1c Calcium 9.3 Total Bilirubin 0.4 AST 36 D ALT 8 L D Alkaline Phosphatase 72 Total Creatine Kinase 49 CK-MB (Mass) 1.24 Troponin I 0.0170 C-Reactive Protein Total Protein 7.3 Albumin 3.4 L Globulin 3.9 Albumin/Globulin Ratio 0.9 L Triglycerides Cholesterol LDL Cholesterol Direct HDL Cholesterol CA 19-9 Antigen CA 125 Antigen Urine Color Yellow Urine Clarity Clear Urine pH 5.0 Ur Specific [place] 1.028 Urine Protein Negative Urine Glucose (UA) Normal Urine Ketones Negative Urine Blood Negative Urine Nitrate Negative Urine Bilirubin Negative Urine Urobilinogen 2.0 H Ur Leukocyte Esterase Neg Urine WBC (Auto) 1 Urine RBC (Auto) 3 Urine Bacteria Rare IgG 1055.0 IgA 469.2 H 10/28/18 10/28/18 10/29/18 19:33 21:19 06:30 WBC 12.0 H RBC 3.68 L Hgb 11.1 Hct 35.4 MCV 96.2 MCH 30.2 MCHC 31.4 L RDW 16.1 H Plt Count 396 MPV 6.9 L Neut % (Auto) 62.4 Lymph % (Auto) 25.9 [place] % (Auto) 8.7 Eos % (Auto) 2.6 Baso % (Auto) 0.4 Neut # (Auto) 7.5 H Lymph # (Auto) 3.1 [place] # (Auto) 1.0 H Eos # (Auto) 0.3 Baso # (Auto) 0.0 PT INR APTT D-Dimer, Quantitative Sodium Potassium Chloride Carbon Dioxide Anion Gap BUN Creatinine Est GFR ( Amer) Est GFR (Non-Af Amer) POC Glucose (mg/dL) 109 Random Glucose Hemoglobin A1c Calcium Total Bilirubin AST ALT Alkaline Phosphatase Total Creatine Kinase CK-MB (Mass) Troponin I C-Reactive Protein 61.90 H Total Protein Albumin Globulin Albumin/Globulin Ratio Triglycerides Cholesterol LDL Cholesterol Direct HDL Cholesterol CA 19-9 Antigen 83.8 H CA 125 Antigen 21.0 Urine Color Urine Clarity Urine pH Ur Specific [place] Urine Protein Urine Glucose (UA) Urine Ketones Urine Blood Urine Nitrate Urine Bilirubin Urine Urobilinogen Ur Leukocyte Esterase Urine WBC (Auto) Urine RBC (Auto) Urine Bacteria IgG IgA 10/29/18 10/29/18 06:30 06:30 WBC RBC Hgb Hct MCV MCH MCHC RDW Plt Count MPV Neut % (Auto) Lymph % (Auto) [place] % (Auto) Eos % (Auto) Baso % (Auto) Neut # (Auto) Lymph # (Auto) [place] # (Auto) Eos # (Auto) Baso # (Auto) PT INR APTT D-Dimer, Quantitative Sodium 143 Potassium 4.3 Chloride 106 Carbon Dioxide 32 H Anion Gap 9 L BUN 12 Creatinine 1.0 Est GFR ( Amer) > 60 Est GFR (Non-Af Amer) 55 POC Glucose (mg/dL) Random Glucose 82 D Hemoglobin A1c 6.3 Calcium 9.2 Total Bilirubin 0.3 AST 23 ALT 15 Alkaline Phosphatase 69 Total Creatine Kinase CK-MB (Mass) Troponin I C-Reactive Protein Total Protein 6.8 Albumin 3.2 L Globulin 3.6 Albumin/Globulin Ratio 0.9 L Triglycerides 138 D Cholesterol 149 LDL Cholesterol Direct 94 HDL Cholesterol 24 L CA 19-9 Antigen CA 125 Antigen Urine Color Urine Clarity Urine pH Ur Specific [place] Urine Protein Urine Glucose (UA) Urine Ketones Urine Blood Urine Nitrate Urine Bilirubin Urine Urobilinogen Ur Leukocyte Esterase Urine WBC (Auto) Urine RBC (Auto) Urine Bacteria IgG IgA Attending/Attestation - Attestation I have personally seen and examined this patient.: Yes I have fully participated in the care of the patient.: Yes I have reviewed all pertinent clinical information: Yes Notes (Text): Medical attending: Patient was seen and examined by me, reviewed the above note by the resident. Patient was not in any acute distress however reported ongoing thoracic and lumbar spine area pain. In the past she has had imaging of the spine which showed concerning sherice lesions. She says she has had a lot of weightloss This time she again has lesions reportedly concerned for multiple myeloma. She does not have an elevated Ca or elevated kidney injury at this time. We will check SPEP, UPEP, Solomons/Lambda light chains, IgA, IgG, and also check CT imaing on the head, cervical spine and also the hip and pelvis in case there is more lesions. The lesions seen on the bones could also be from other maligancies as wekk - so will need breast exam, CA 19-9, CA 125, and also get a hematology oncology evaluation. The patient
[2018-10-28 19:57] LABS: IMMUNOGLOBULIN A 469.2 mg/dL (70.0-400.0)
[2018-10-28] MEDS ORDERED: Dextrose 50% SYRINGE Inj (50 ml) IV PRN (21:08)
[2018-10-28] MEDS ORDERED: Glucagon Recombinant 1 mg Inj IM PRN (21:08)
[2018-10-28] MEDS: Divalproex 500 mg ER Tab PO SCH (22:06)
[2018-10-28] MEDS: (Novolin R) Insulin Human Regular 100 units/ml vial SC SCH (22:11)
[2018-10-29] MEDS ORDERED: guaiFENesin 100 mg/5 ml Syrup UD PO ONE (00:20)
[2018-10-29 06:36] LABS: BASO % 0.4 % (0.0-2.0); EOS # 0.3 K/uL (0.0-0.7); EOS % 2.6 % (0.0-4.0); HEMOGLOBIN 11.1 g/dL (11.0-16.0); LYMPH # 3.1 K/uL (1.0-4.3); LYMPH % 25.9 % (20.0-40.0); MEAN CELL VOLUME 96.2 fL (81.0-99.0); MEAN CORPUSCULAR HEMOGLOBIN 30.2 pg (27.0-31.0); MEAN CORPUSCULAR HGB CONC 31.4 g/dL (33.0-37.0); MEAN PLATELET VOLUME 6.9 fL (7.2-11.7); MONO % 8.7 % (0.0-10.0); NEUT # 7.5 K/uL (1.8-7.0); NEUT % 62.4 % (50.0-75.0); NRBC % 0.1 % (0.0-2.0); RBC 3.68 Mil/uL (3.80-5.20); RED CELL DISTRIBUTION WIDTH 16.1 % (11.5-14.5)
[2018-10-29 07:20] LABS: LDL CHOLESTEROL 94 mg/dL (0-129)
[2018-10-29 07:40] LABS: ALB/GLOB RATIO 0.9 (1.0-2.1); ALBUMIN 3.2 g/dL (3.5-5.0); ALT/SGPT 15 U/L (9-52); AST/SGOT 23 U/L (14-36); BLOOD UREA NITROGEN 12 mg/dL (7-17); CALCIUM 9.2 mg/dl (8.6-10.4); GFR NON-AFRICAN AMERICAN 55; HDL CHOLESTEROL 24 mg/dL (30-70)
[2018-10-29] MEDS: (Novolin R) Insulin Human Regular 100 units/ml vial SC SCH ×4 (07:55→22:03)
--- NOTE | 2018-10-29 08:59 | CT ---
Date of service: 10/28/2018 PROCEDURE: CT HEAD WITHOUT CONTRAST. HISTORY: concerning bone lesions COMPARISON: Unenhanced head CT 07/23/2018. TECHNIQUE: Axial computed tomography images were obtained through the head/brain without intravenous contrast. Radiation dose: Total exam DLP = 1135.71 mGy-cm. This CT exam was performed using one or more of the following dose reduction techniques: Automated exposure control, adjustment of the mA and/or kV according to patient size, and/or use of iterative reconstruction technique. FINDINGS: HEMORRHAGE: No intracranial hemorrhage. BRAIN: No mass effect or edema. Limited diffuse cerebral atrophy reiterated as well as chronic microangiopathy in the periventricular white matter and centrum semiovale distributions. Empty sella noted. VENTRICLES: Unremarkable. No hydrocephalus. CALVARIUM: No destructive bony lesion is appreciated. Calvarium remains grossly intact as well as skull base bony anatomy. PARANASAL SINUSES: Right greater than left frontal and maxillary sinusitis changes are identified with mild bilateral ethmoid sinusitis evident as well. MASTOID AIR CELLS: Unremarkable as visualized. No inflammatory changes. OTHER FINDINGS: None. IMPRESSION: Stable nonacute head CT with limited age-related neuro degenerative changes reiterated. No suspicious bony findings throughout the calvarium or skull base. Incidental sinusitis changes are moderate in severity as discussed above. Concordant preliminary report from Adi, 10/28/2018 8:28 p.m..
--- NOTE | 2018-10-29 09:06 | CT ---
Date of service: 10/28/2018 PROCEDURE: CT Cervical Spine without contrast HISTORY: concerning bone lesions COMPARISON: None available. TECHNIQUE: Axial computed tomography images were obtained of the cervical spine without the use of intravenous contrast. Coronal and sagittal reformatted images were created and reviewed. Radiation dose: Total exam DLP = 649.54 mGy-cm. This CT exam was performed using one or more of the following dose reduction techniques: Automated exposure control, adjustment of the mA and/or kV according to patient size, and/or use of iterative reconstruction technique. FINDINGS: VERTEBRAE: No fracture. Normal alignment. No destructive bony lesion. DISCS/SPINAL CANAL/NEURAL FORAMINA: Extensive multilevel spondylosis predominantly anterior in location with bridging osteophytes in a pattern that could reflect ankylosing spondylosis or DISH. At C2-3, there is a moderate to severe left neural foraminal stenosis on degenerative basis with no significant right neural foraminal stenosis present although osteophytic growth is prominent at the right facet joint but more posterior. No significant central stenosis. At C3-4, no significant central canal or neural foraminal stenosis. At C4-5, moderate to severe right degenerative neural foraminal stenosis with no significant left neural foraminal stenosis or central canal stenosis. At C5-6, moderate bilateral degenerative neural foraminal stenoses are present without significant central stenosis. At C6-7, moderate to severe left degenerative neural foraminal stenosis with [id number] degenerative right neural foraminal stenosis. No significant central stenosis. At C7-T1, moderate to severe left degenerative neural foraminal stenosis with none on the right. No significant central stenosis. No gross disc herniation appreciated throughout the exam however MRI is more sensitive. PARASPINAL SOFT TISSUES: Prevertebral paraspinal soft tissues appear diffusely unremarkable. OTHER FINDINGS: None. IMPRESSION: 1. No fracture or spondylolisthesis appreciable. 2. No significant central stenosis throughout the exam. No gross disc herniation. MRI is more sensitive in evaluation of intervertebral discs. 3. Gross osteophyte development is seen throughout the cervical spine but is predominantly anterior in location with syndesmophytes appreciated at the majority levels potentially reflecting ankylosing spondylosis or DISH.
[2018-10-29] MEDS: Divalproex 500 mg ER Tab PO SCH ×2 (09:46→17:50)
[2018-10-29] MEDS: Azithromycin 500 MG in Sodium Chloride 0.9% 250 ML IVPB SCH (18:39)
--- NOTE | 2018-10-29 18:48 | CP.PCM.PN ---
<JohnJoleen - Last Filed: 10/29/18 18:57> Subjective - Date & Time of Evaluation Date of Evaluation: 10/29/18 Time of Evaluation: 10:20 - Subjective Subjective: Patient examined at bedside. No acute events overnight. Patient appears confused. Pt confirms an unintentional 30 lb weight loss over the past month, in addition to new onset difficulty ambulating. Per reports, family just informed staff that approximately 1 week ago, pt was noted to have facial droop. Patient refused to go to hospital, and facial droop resolved, however pt has continued difficulty ambulating. Objective - Vital Signs/Intake and Output Vital Signs (last 24 hours): Temp Pulse Resp BP Pulse Ox 98.4 F 53 L 18 160/80 H 95 10/29/18 15:39 10/29/18 15:39 10/29/18 15:39 10/29/18 18:42 10/29/18 15:39 Intake and Output: 10/29/18 10/29/18 06:59 18:59 Intake Total 200 300 Output Total 500 600 Balance -300 -300 - Medications Medications: Current Medications Acetaminophen (Tylenol 325mg Tab) 650 mg PO Q6 PRN PRN Reason: Pain, severe (8-10) Aspirin (Aspirin Chewable) 81 mg PO DAILY [facility] Last Admin: 10/29/18 09:45 Dose: 81 mg Benztropine Mesylate (Cogentin) 1 mg PO BID [facility] Last Admin: 10/29/18 17:46 Dose: 1 mg Dextrose (Dextrose 50% Inj) 0 ml IV STAT PRN; Protocol PRN Reason: Hypoglycemia Protocol Dextrose (Glutose 15) 0 gm PO ONCE PRN; Protocol PRN Reason: Hypoglycemia Protocol Divalproex Sodium (Depakote Er) 500 mg PO BID [facility] Last Admin: 10/29/18 17:50 Dose: 500 mg Famotidine (Pepcid) 20 mg IVP DAILY [facility] Last Admin: 10/29/18 09:51 Dose: 20 mg Gabapentin (Neurontin) 300 mg PO BID [facility] Last Admin: 10/29/18 17:46 Dose: 300 mg Glucagon (Glucagen Diagnostic Kit) 0 mg IM STAT PRN; Protocol PRN Reason: Hypoglycemia Protocol Heparin Sodium (Porcine) (Heparin) 5,000 units SC Q12 [facility] Last Admin: 10/29/18 09:45 Dose: 5,000 units Hydralazine HCl (Apresoline) 50 mg PO TID PRN PRN Reason: Systolic Blood Pressure Last Admin: 10/29/18 17:46 Dose: 50 mg Ceftriaxone Sodium 1 gm/ (Sodium Chloride) 100 mls @ 100 mls/hr IVPB Q12H [facility]; Protocol Last Admin: 10/29/18 08:03 Dose: 100 mls/hr Dextrose (Dextrose 5% In Water 1000 Ml) 1,000 mls @ 0 mls/hr IV .Q0M PRN; Protocol PRN Reason: Hypoglycemia Protocol Azithromycin 500 mg/ Sodium (Chloride) 250 mls @ 250 mls/hr IVPB Q24H [facility]; Protocol Last Admin: 10/29/18 18:39 Dose: 250 mls/hr Influenza Virus Vaccine (Fluzone Quad [id number]) 60 mcg IM .ONCE ONE Stop: 11/01/18 10:01 Insulin Human Regular (Novolin R) 0 unit SC ACHS [facility]; Protocol Last Admin: 10/29/18 17:46 Dose: Not Given Nicotine (Nicoderm Cq) 1 patch TD DAILY [facility] Last Admin: 10/29/18 13:41 Dose: 1 patch Pneumococcal Polyvalent Vaccine (Pneumovax 23 Vaccine) 0.5 ml IM .ONCE ONE Stop: 11/01/18 10:01 Risperidone (Risperdal Tab) 1 mg PO BID [facility] Last Admin: 10/29/18 17:46 Dose: 1 mg - Labs Labs: 10/29/18 06:30 10/29/18 06:30 PT 15.3 SECONDS (9.7-12.2) H 10/28/18 13:22 INR 1.4 10/28/18 13:22 APTT 40 SECONDS (21-34) H 10/28/18 13:22 - Additional Findings Additional findings: - Head Exam Head Exam: ATRAUMATIC, NORMOCEPHALIC - Eye Exam Eye Exam: EOMI, Normal appearance, PERRL - ENT Exam ENT Exam: Mucous Membranes Moist - Neck Exam Neck exam: Positive for: Full Rom. Negative for: Lymphadenopathy, Tenderness - Respiratory Exam Respiratory Exam: Decreased Breath Sounds, Rhonchi (auscultated anterior right chest area ) - Cardiovascular Exam Cardiovascular Exam: Tachycardia, REGULAR RHYTHM, +S1, +S2 - GI/Abdominal Exam GI & Abdominal Exam: Normal Bowel Sounds, Soft. absent: Distended, Guarding, Organomegaly, Tenderness - Extremities Exam Extremities exam: Positive for: pedal pulses present. Negative for: calf tenderness, joint swelling, pedal edema, tenderness - Back Exam Back exam: FULL ROM, NORMAL INSPECTION. absent: paraspinal tenderness, rash noted, tenderness, vertebral tenderness - Neurological Exam Neurological exam: Alert, Oriented x3 Additional comments: unintelligible speech - Expanded Neurological Exam Expanded Neuro motor strength exam: Left Upper Extremity: 5, Right Upper Extremity: 5, Left Lower Extremity: 3, Right Lower Extremity: 3 - Psychiatric Exam Psychiatric exam: Normal Affect, Normal Mood - Skin Skin Exam: Dry, Intact, Normal Color, Warm Breast exam revealed no palpable nodules, no axillary/inguinal lymphadenopathy noted Assessment and Plan - Assessment and Plan (Free Text) Plan: R/O CVA -f/u MRI brain per family reports of AMS/difficulty walking Lytic lesions vertebral bodies- suspect Multiple myeloma vs metastatic disease - Chest CT - multilobar infection vs inflammatory process, numerous lytic lesions through vertebral bodies raising suspicion of multiple myeloma - Past lesions seen in previous imaging on past admissions/ED visits - Protein electrophoresis, 24 Hr Urine (UPEP), Protein electrophoresis, 24 Hr serum (SPEP) - consider Immunofixation electrophoresis (MJ) for confirmation of tests -f/u - f/u blood smear - free Malakoff/Lambda - f/u - CRP 61.9, Ca125 WNL, Ca 19-9 83.8 - IgA 469.2 , IgG WNL - CT head w/o contrast: No lytic lesions - CT abdomen and pelvis w/o contrast - CT cervical: osteophytes/desmophytes, thoracic and lumbar spine w/o contrast - Dr Hdz - Heme/Onc consult - This case will be seen by Dr Francisco - help is appreciated - will perform Breast examination in the am to look for masses or indications of breast malignancy. - follow up am labs B/L hip pain - Hip/pelvis xray - no acute findings m moderate approx degenerative changes - f/u CT abd/pelvis -f/u - tylenol Q6 PRN for pain right shoulder pain - shoulder xray - no acute changes, b/l degenerative changes - Tylenol Q6 PRN for pain r/o respiratory infection - chest xray - suspected early infiltrate Rt base - CT chest - multilobar infection vs inflamattory process, no evidence of PE - f/u blood culture, urine cultures - Meds: -Rocephin 1gm IV BID - Azithromycin 500mg IV QD bipolar disorder - continue home meds - risperidone 1mg BID - Depakote 500mg PO BID Parkinson disease - continue home med benztropine 1mg BID hx of diabetes - not currently taking DM medications - HbA1c -f/u - Accuchecks - ISS low dose - hypoglycemia protocol - gabapentin 300mg PO BID for diabetic neuropathy hx of HTN - not currently taking any HTN medications - continue monitoring vitals - continue aspirin 81mg PO daily hx of HLD - not on any statin medication - Lipid panel - low HDL ppx -DVT: Scds, Heparin 5000U SC Q12h - GI: pepcid 20 mg IVP -Diet: Diabetic low carb consistent diet, 2g Na - 2L O2 NC PRN -PT/OT eval - help is appreciated -Patient is full code - unclear/undecided who proxy is for pt - no advance directive Discussed with Dr. Gilmore -Joleen John, PGY-1 <Brian Gilmore H - Last Filed: 10/29/18 19:14> Objective - Vital Signs/Intake and Output Vital Signs (last 24 hours): Temp Pulse Resp BP Pulse Ox 98.4 F 53 L 18 160/80 H 95 10/29/18 15:39 10/29/18 15:39 10/29/18 15:39 10/29/18 18:42 10/29/18 15:39 Intake and Output: 10/29/18 10/30/18 18:59 06:59 Intake Total 300 Output Total 600 Balance -300 - Medications Medications: Current Medications Acetaminophen (Tylenol 325mg Tab) 650 mg PO Q6 PRN PRN Reason: Pain, severe (8-10) Aspirin (Aspirin Chewable) 81 mg PO DAILY [facility] Last Admin: 10/29/18 09:45 Dose: 81 mg Benztropine Mesylate (Cogentin) 1 mg PO BID [facility] Last Admin: 10/29/18 17:46 Dose: 1 mg Dextrose (Dextrose 50% Inj) 0 ml IV STAT PRN; Protocol PRN Reason: Hypoglycemia Protocol Dextrose (Glutose 15) 0 gm PO ONCE PRN; Protocol PRN Reason: Hypoglycemia Protocol Divalproex Sodium (Depakote Er) 500 mg PO BID [facility] Last Admin: 10/29/18 17:50 Dose: 500 mg Famotidine (Pepcid) 20 mg IVP DAILY [facility] Last Admin: 10/29/18 09:51 Dose: 20 mg Gabapentin (Neurontin) 300 mg PO BID [facility] Last Admin: 10/29/18 17:46 Dose: 300 mg Glucagon (Glucagen Diagnostic Kit) 0 mg IM STAT PRN; Protocol PRN Reason: Hypoglycemia Protocol Heparin Sodium (Porcine) (Heparin) 5,000 units SC Q12 [facility] Last Admin: 10/29/18 09:45 Dose: 5,000 units Hydralazine HCl (Apresoline) 50 mg PO TID PRN PRN Reason: Systolic Blood Pressure Last Admin: 10/29/18 17:46 Dose: 50 mg Ceftriaxone Sodium 1 gm/ (Sodium Chloride) 100 mls @ 100 mls/hr IVPB Q12H [facility]; Protocol Last Admin: 10/29/18 08:03 Dose: 100 mls/hr Dextrose (Dextrose 5% In Water 1000 Ml) 1,000 mls @ 0 mls/hr IV .Q0M PRN; Protocol PRN Reason: Hypoglycemia Protocol Azithromycin 500 mg/ Sodium (Chloride) 250 mls @ 250 mls/hr IVPB Q24H [facility]; Protocol Last Admin: 10/29/18 18:39 Dose: 250 mls/hr Influenza Virus Vaccine (Fluzone Quad [id number]) 60 mcg IM .ONCE ONE Stop: 11/01/18 10:01 Insulin Human Regular (Novolin R) 0 unit SC ACHS [facility]; Protocol Last Admin: 10/29/18 17:46 Dose: Not Given Nicotine (Nicoderm Cq) 1 patch TD DAILY [facility] Last Admin: 10/29/18 13:41 Dose: 1 patch Pneumococcal Polyvalent Vaccine (Pneumovax 23 Vaccine) 0.5 ml IM .ONCE ONE Stop: 11/01/18 10:01 Risperidone (Risperdal Tab) 1 mg PO BID [facility] Last Admin: 10/29/18 17:46 Dose: 1 mg - Labs Labs: 10/29/18 06:30 10/29/18 06:30 PT 15.3 SECONDS (9.7-12.2) H 10/28/18 13:22 INR 1.4 10/28/18 13:22 APTT 40 SECONDS (21-34) H 10/28/18 13:22 Attending/Attestation - Attestation I have personally seen and examined this patient.: Yes I have fully participated in the care of the patient.: Yes I have reviewed all pertinent clinical information, including history, physical exam and plan: Yes Notes (Text): 10/29/18 19:07 Medical attending: Patient was seen and examined by me. Agree with the above note by the resident The patient was not in any acute distress. Today there was a family member name Ehsan at bedside who was walking with the patient - patient had difficulty walking, her gait was unsteady. As mentioned previously we are concerned of the bony lesions seen on imaging as well as her telling us about weightloss and body pain. Because of radiologist concern for multiple myeloma, we have sent for SPEP, UPEP, Malakoff\lambda light chains, IgG and IgA - however she does not have an elevated creatine or elevated Ca. I spoke to Ehsan as well as the patient's daughter as well over the phone Also today we did a breast exam and we did not palpate any nodules on breast bilaterally or in the axillary area. She is a smoker Per my discussion with the daughter - daughter Narcisa Campo over the phone - she reports one week ago noticing facial drooping and slurred speech and inability to walk one day and then improvement, the daughter reported that the patient did not want to go to the hospital. I explained to the daughter as well as family member Ehsan that what they tell me makes us concern for a potential CVA. Per family she does not have metal in her body and has had MRI before so we will check an MRI of the brain for potential CVA not seen on the CT of the head (or maybe if there was metastatic spread to the brain causing this weakness) Thank you Brian Gilmore
[2018-10-29 23:44] VITALS: RESP 20
[2018-10-30 07:17] LABS: BASO # 0.1 K/uL (0.0-0.2); BASO % 0.8 % (0.0-2.0); EOS # 0.3 K/uL (0.0-0.7); EOS % 3.3 % (0.0-4.0); HEMOGLOBIN 11.2 g/dL (11.0-16.0); LYMPH # 3.1 K/uL (1.0-4.3); LYMPH % 32.5 % (20.0-40.0); MEAN CORPUSCULAR HGB CONC 32.6 g/dL (33.0-37.0); MEAN PLATELET VOLUME 7.3 fL (7.2-11.7); MONO # 0.8 K/uL (0.0-0.8); MONO % 8.6 % (0.0-10.0); NEUT # 5.3 K/uL (1.8-7.0); NEUT % 54.8 % (50.0-75.0); NRBC % 0.1 % (0.0-2.0); RBC 3.6 Mil/uL (3.80-5.20); RED CELL DISTRIBUTION WIDTH 15.6 % (11.5-14.5); WHITE BLOOD COUNT 9.7 K/uL (4.8-10.8)
--- NOTE | 2018-10-30 07:27 | CP.PCM.PN ---
<Lenny Green - Last Filed: 10/30/18 13:33> Subjective - Date & Time of Evaluation Date of Evaluation: 10/30/18 Time of Evaluation: 07:26 - Subjective Subjective: PGY-1 Medicine Progress Note for Dr. Gilmore Patient seen and examined at bedside this AM, mildly confused but pleasant. No acute events reported overnight. Continues to be weak, unsteady on her feet. No fevers/chills, headaches, chest pain, sob, back pain, abdominal pain, n/v/d/c. Objective - Vital Signs/Intake and Output Vital Signs (last 24 hours): Temp Pulse Resp BP Pulse Ox 98 F 61 20 167/77 H 95 10/29/18 23:40 10/29/18 23:40 10/29/18 23:40 10/29/18 23:40 10/29/18 23:40 Intake and Output: 10/30/18 10/30/18 06:59 18:59 Intake Total 790 Balance 790 - Medications Medications: Current Medications Acetaminophen (Tylenol 325mg Tab) 650 mg PO Q6 PRN PRN Reason: Pain, severe (8-10) Aspirin (Aspirin Chewable) 81 mg PO DAILY [facility] Last Admin: 10/29/18 09:45 Dose: 81 mg Benztropine Mesylate (Cogentin) 1 mg PO BID [facility] Last Admin: 10/29/18 17:46 Dose: 1 mg Dextrose (Dextrose 50% Inj) 0 ml IV STAT PRN; Protocol PRN Reason: Hypoglycemia Protocol Dextrose (Glutose 15) 0 gm PO ONCE PRN; Protocol PRN Reason: Hypoglycemia Protocol Divalproex Sodium (Depakote Er) 500 mg PO BID [facility] Last Admin: 10/29/18 17:50 Dose: 500 mg Famotidine (Pepcid) 20 mg IVP DAILY [facility] Last Admin: 10/29/18 09:51 Dose: 20 mg Gabapentin (Neurontin) 300 mg PO BID [facility] Last Admin: 10/29/18 17:46 Dose: 300 mg Glucagon (Glucagen Diagnostic Kit) 0 mg IM STAT PRN; Protocol PRN Reason: Hypoglycemia Protocol Heparin Sodium (Porcine) (Heparin) 5,000 units SC Q12 [facility] Last Admin: 10/29/18 22:23 Dose: 5,000 units Hydralazine HCl (Apresoline) 50 mg PO TID PRN PRN Reason: Systolic Blood Pressure Last Admin: 10/29/18 17:46 Dose: 50 mg Ceftriaxone Sodium 1 gm/ (Sodium Chloride) 100 mls @ 100 mls/hr IVPB Q12H [facility]; Protocol Last Admin: 10/29/18 20:00 Dose: 100 mls/hr Dextrose (Dextrose 5% In Water 1000 Ml) 1,000 mls @ 0 mls/hr IV .Q0M PRN; Protocol PRN Reason: Hypoglycemia Protocol Azithromycin 500 mg/ Sodium (Chloride) 250 mls @ 250 mls/hr IVPB Q24H [facility]; Protocol Last Admin: 10/29/18 18:39 Dose: 250 mls/hr Influenza Virus Vaccine (Fluzone Quad [id number]) 60 mcg IM .ONCE ONE Stop: 11/01/18 10:01 Insulin Human Regular (Novolin R) 0 unit SC ACHS [facility]; Protocol Last Admin: 10/29/18 22:03 Dose: Not Given Nicotine (Nicoderm Cq) 1 patch TD DAILY [facility] Last Admin: 10/29/18 13:41 Dose: 1 patch Pneumococcal Polyvalent Vaccine (Pneumovax 23 Vaccine) 0.5 ml IM .ONCE ONE Stop: 11/01/18 10:01 Risperidone (Risperdal Tab) 1 mg PO BID [facility] Last Admin: 10/29/18 17:46 Dose: 1 mg - Labs Labs: 10/30/18 06:41 10/29/18 06:30 PT 15.3 SECONDS (9.7-12.2) H 10/28/18 13:22 INR 1.4 10/28/18 13:22 APTT 40 SECONDS (21-34) H 10/28/18 13:22 - Constitutional Appears: Non-toxic, No Acute Distress, Confused - Head Exam Head Exam: ATRAUMATIC, NORMAL INSPECTION, NORMOCEPHALIC - Eye Exam Eye Exam: EOMI, Normal appearance Pupil Exam: NORMAL ACCOMODATION - ENT Exam ENT Exam: Mucous Membranes Moist, Normal Exam - Respiratory Exam Respiratory Exam: Clear to Ausculation Bilateral, NORMAL BREATHING PATTERN. absent: Accessory Muscle Use, Rales, Rhonchi, Wheezes, Respiratory Distress - Cardiovascular Exam Cardiovascular Exam: Tachycardia, REGULAR RHYTHM, +S1, +S2 - GI/Abdominal Exam GI & Abdominal Exam: Soft, Normal Bowel Sounds. absent: Distended, Firm, Guarding, Tenderness - Extremities Exam Extremities Exam: Normal Capillary Refill, Normal Inspection. absent: Calf Tenderness, Pedal Edema - Back Exam Back Exam: NORMAL INSPECTION. absent: CVA tenderness (L), CVA tenderness (R) - Neurological Exam Neurological Exam: Alert, Awake, Oriented x3 Neuro motor strength exam: Left Upper Extremity: 5, Right Upper Extremity: 5, Left Lower Extremity: 3, Right Lower Extremity: 3 - Psychiatric Exam Psychiatric exam: Normal Affect, Normal Mood - Skin Skin Exam: Dry, Intact, Normal Color, Warm Assessment and Plan - Assessment and Plan (Free Text) Assessment: 72 year old -[place] female with PMHx of HTN, HLD, DM, bipolar disorder, parkinson's presenting with b/l hip pain radiating to LE, unintentional weight loss, suspicious lytic lesions throughout spinal vertebral bodies on CT. Plan: AMS, r/o CVA -per daughter, Narcisa Campo, one week ago patient had facial drooping and slurred speech and inability to walk one day and then improvement, the daughter reported that the patient did not want to go to the hospital. -CT head: no acute intracranial pathology noted -f/u MRI brain -per nursing, patient states she has "metal object in back of neck" -patient did not endorse metal object during interview, no metallic objects noted on CT scans or XR -per attending note (10/29), daughter states pt has had MRI done in past -can proceed with MRI as per Dr. Gilmore Lytic lesions vertebral bodies- suspect Multiple myeloma vs metastatic disease -Chest CT: multilobar infection vs inflammatory process, numerous lytic lesions through vertebral bodies raising suspicion of multiple myeloma - Past lesions seen in previous imaging on past admissions/ED visits -Heme/Onc (Dr Hdz) consulted- case will be seen by Dr Francisco - CRP 61.9, Ca125 WNL, Ca 19-9 83.8 - IgA 469.2 , IgG WNL - f/u Protein electrophoresis, 24 Hr Urine (UPEP), Protein electrophoresis, 24 Hr serum (SPEP) - f/u blood smear - f/u free Dunstan/Lambda B/L hip, R shoulder pain -XR hip/pelvis: no acute findings m moderate approx degenerative changes - shoulder xray: no acute changes, b/l degenerative changes - tylenol Q6 PRN for pain r/o respiratory infection -CXR: suspected early infiltrate Rt base -CT chest: multilobar infection vs inflamattory process, no evidence of PE -blood culture, urine cultures demonstrate no growth - Meds: -Rocephin 1gm IV BID - Azithromycin 500mg IV QD Bipolar disorder -continue home meds -risperidone 1mg BID -Depakote 500mg PO BID Parkinson disease - continue home med benztropine 1mg BID DM - not currently taking DM medications - A1C 6.3 - Accuchecks - ISS low dose - hypoglycemia protocol - gabapentin 300mg PO BID for diabetic neuropathy HTN - not currently taking any HTN medications - continue monitoring vitals - continue aspirin 81mg PO daily HLD - not on any statin medication - Lipid panel - low HDL PPx, Diet, Disposition -DVT ppx: scds, Heparin 5000U SC Q12h -GI ppx: pepcid 20 mg IVP -Diet: Diabetic low carb consistent diet, 2g Na -PT/OT on case -Code status: full code Case discussed with Dr. Deirdre Green DO, PGY-1 <Brian Gilmore H - Last Filed: 10/30/18 14:50> Objective - Vital Signs/Intake and Output Vital Signs (last 24 hours): Temp Pulse Resp BP Pulse Ox 98.0 F 55 L 20 153/79 H 94 L 10/30/18 08:36 10/30/18 11:59 10/30/18 08:36 10/30/18 08:36 10/30/18 08:36 Intake and Output: 10/30/18 10/30/18 06:59 18:59 Intake Total 790 Balance 790 - Medications Medications: Current Medications Acetaminophen (Tylenol 325mg Tab) 650 mg PO Q6 PRN PRN Reason: Pain, severe (8-10) Aspirin (Aspirin Chewable) 81 mg PO DAILY [facility] Last Admin: 10/30/18 09:55 Dose: 81 mg Benztropine Mesylate (Cogentin) 1 mg PO BID [facility] Last Admin: 10/30/18 09:55 Dose: 1 mg Dextrose (Dextrose 50% Inj) 0 ml IV STAT PRN; Protocol PRN Reason: Hypoglycemia Protocol Dextrose (Glutose 15) 0 gm PO ONCE PRN; Protocol PRN Reason: Hypoglycemia Protocol Divalproex Sodium (Depakote Er) 500 mg PO BID [facility] Last Admin: 10/30/18 09:55 Dose: 500 mg Famotidine (Pepcid) 20 mg IVP DAILY [facility] Last Admin: 10/30/18 09:55 Dose: 20 mg Gabapentin (Neurontin) 300 mg PO BID [facility] Last Admin: 10/30/18 09:55 Dose: 300 mg Glucagon (Glucagen Diagnostic Kit) 0 mg IM STAT PRN; Protocol PRN Reason: Hypoglycemia Protocol Heparin Sodium (Porcine) (Heparin) 5,000 units SC Q12 [facility] Last Admin: 10/30/18 09:55 Dose: 5,000 units Hydralazine HCl (Apresoline) 50 mg PO TID PRN PRN Reason: Systolic Blood Pressure Last Admin: 10/29/18 17:46 Dose: 50 mg Ceftriaxone Sodium 1 gm/ (Sodium Chloride) 100 mls @ 100 mls/hr IVPB Q12H [facility]; Protocol Last Admin: 10/30/18 08:46 Dose: 100 mls/hr Dextrose (Dextrose 5% In Water 1000 Ml) 1,000 mls @ 0 mls/hr IV .Q0M PRN; Protocol PRN Reason: Hypoglycemia Protocol Azithromycin 500 mg/ Sodium (Chloride) 250 mls @ 250 mls/hr IVPB Q24H [facility]; Protocol Last Admin: 10/29/18 18:39 Dose: 250 mls/hr Influenza Virus Vaccine (Fluzone Quad [id number]) 60 mcg IM .ONCE ONE Stop: 11/01/18 10:01 Insulin Human Regular (Novolin R) 0 unit SC ACHS [facility]; Protocol Last Admin: 10/30/18 12:04 Dose: Not Given Nicotine (Nicoderm Cq) 1 patch TD DAILY [facility] Last Admin: 10/30/18 09:55 Dose: 1 patch Pneumococcal Polyvalent Vaccine (Pneumovax 23 Vaccine) 0.5 ml IM .ONCE ONE Stop: 11/01/18 10:01 Risperidone (Risperdal Tab) 1 mg PO BID [facility] Last Admin: 10/30/18 09:55 Dose: 1 mg - Labs Labs: 10/30/18 06:41 10/30/18 06:41 PT 15.3 SECONDS (9.7-12.2) H 10/28/18 13:22 INR 1.4 10/28/18 13:22 APTT 40 SECONDS (21-34) H 10/28/18 13:22 Attending/Attestation - Attestation I have personally seen and examined this patient.: Yes I have fully participated in the care of the patient.: Yes I have reviewed all pertinent clinical information, including history, physical exam and plan: Yes Notes (Text): 10/30/18 14:46 Medical attending: Patient was seen and examined by me. She reports that the pain in her back area had decreased signifigantly. Because of my conversation with the patient's daughter yesterday I explained to the family and to the patient that we should try to get an MRI however this morning the patient stated that she does not feel comfortable with MRI because it's a closed space and she has difficulty with the closed MRI Also pending SPEP, UPEP, Beta / Dunstan Light chains, the patient had additional imaging that did not show metal in the body. There is a cervical spine CT reading suggesting maybe ankylosing spondylysis - however this is a 72 yr female. Pending hematology oncology evaluation. Brian Gilmore
[2018-10-30] MEDS: (Novolin R) Insulin Human Regular 100 units/ml vial SC SCH ×4 (07:46→21:37)
[2018-10-30 08:08] LABS: ALBUMIN 3.3 g/dL (3.5-5.0); ALT/SGPT 14 U/L (9-52); AST/SGOT 11 U/L (14-36); BLOOD UREA NITROGEN 11 mg/dL (7-17); CALCIUM 9.3 mg/dl (8.6-10.4); GFR NON-AFRICAN AMERICAN > 60
[2018-10-30] MEDS: Divalproex 500 mg ER Tab PO SCH (09:55)
[2018-10-30] MEDS ORDERED: Influenza Vaccine 60 MCG/0.5 ML SYR (3 yr & up) IM ONE (10:00)
--- NOTE | 2018-10-30 17:54 | CARD ---
APPROVED REPORT Date of service: 10/28/2018 EKG Measurement Heart [id number] <Conclusion> Sinus rhythm with premature atrial complexes Left axis deviation Minimal voltage criteria for LVH, may be normal variant Septal infarct, age undetermined Abnormal ECG
[2018-10-30] MEDS: Divalproex 500 mg DR Tab PO SCH (17:55)
[2018-10-30] MEDS: Azithromycin 500 MG in Sodium Chloride 0.9% 250 ML IVPB SCH (17:56)
[2018-10-31 00:07] LABS: FREE KAPPA SERUM 59.9 mg/L (3.3-19.4)
[2018-10-31 07:05] LABS: BASO # 0.1 K/uL (0.0-0.2); BASO % 1.2 % (0.0-2.0); EOS # 0.2 K/uL (0.0-0.7); EOS % 2.3 % (0.0-4.0); HEMOGLOBIN 11.7 g/dL (11.0-16.0); LYMPH # 3.1 K/uL (1.0-4.3); LYMPH % 37.6 % (20.0-40.0); MEAN CELL VOLUME 94.4 fL (81.0-99.0); MEAN CORPUSCULAR HEMOGLOBIN 30.9 pg (27.0-31.0); MEAN CORPUSCULAR HGB CONC 32.7 g/dL (33.0-37.0); MEAN PLATELET VOLUME 6.7 fL (7.2-11.7); MONO # 0.7 K/uL (0.0-0.8); MONO % 9.1 % (0.0-10.0); NEUT # 4.1 K/uL (1.8-7.0); NEUT % 49.8 % (50.0-75.0); NRBC % 0.2 % (0.0-2.0); RBC 3.79 Mil/uL (3.80-5.20); RED CELL DISTRIBUTION WIDTH 15.7 % (11.5-14.5); WHITE BLOOD COUNT 8.2 K/uL (4.8-10.8)
[2018-10-31 07:20] LABS: ALBUMIN 3.4 g/dL (3.5-5.0); ALT/SGPT 12 U/L (9-52); AST/SGOT 12 U/L (14-36); BLOOD UREA NITROGEN 13 mg/dL (7-17); CALCIUM 9.2 mg/dl (8.6-10.4); GFR NON-AFRICAN AMERICAN 55
--- NOTE | 2018-10-31 07:45 | CP.PCM.PN ---
<eLnny Green - Last Filed: 10/31/18 15:53> Subjective - Date & Time of Evaluation Date of Evaluation: 10/31/18 Time of Evaluation: 07:45 - Subjective Subjective: PGY-1 Medicine Progress Note for Dr. Gilmore Patient seen and examined at bedside this AM, resting comfortably and in no acute distress. No overnight events reported. Endorses mild lower back pain, otherwise no acute somatic complaints. No fevers/chills, headaches, chest pain, palpitations, sob, cough, abdominal pain, n/v/d/c. Objective - Vital Signs/Intake and Output Vital Signs (last 24 hours): Temp Pulse Resp BP Pulse Ox 98.5 F 57 L 20 147/80 94 L 10/31/18 00:00 10/31/18 00:00 10/31/18 00:00 10/31/18 00:00 10/31/18 00:00 Intake and Output: 10/31/18 10/31/18 06:59 18:59 Intake Total 120 Balance 120 - Medications Medications: Current Medications Acetaminophen (Tylenol 325mg Tab) 650 mg PO Q6 PRN PRN Reason: Pain, severe (8-10) Aspirin (Aspirin Chewable) 81 mg PO DAILY [facility] Last Admin: 10/30/18 09:55 Dose: 81 mg Benztropine Mesylate (Cogentin) 1 mg PO BID [facility] Last Admin: 10/30/18 17:55 Dose: 1 mg Dextrose (Dextrose 50% Inj) 0 ml IV STAT PRN; Protocol PRN Reason: Hypoglycemia Protocol Dextrose (Glutose 15) 0 gm PO ONCE PRN; Protocol PRN Reason: Hypoglycemia Protocol Divalproex Sodium (Depakote Dr) 500 mg PO BID [facility] Last Admin: 10/30/18 17:55 Dose: 500 mg Famotidine (Pepcid) 20 mg IVP DAILY [facility] Last Admin: 10/30/18 09:55 Dose: 20 mg Gabapentin (Neurontin) 300 mg PO BID [facility] Last Admin: 10/30/18 17:54 Dose: 300 mg Glucagon (Glucagen Diagnostic Kit) 0 mg IM STAT PRN; Protocol PRN Reason: Hypoglycemia Protocol Heparin Sodium (Porcine) (Heparin) 5,000 units SC Q12 [facility] Last Admin: 10/30/18 21:36 Dose: 5,000 units Hydralazine HCl (Apresoline) 50 mg PO TID PRN PRN Reason: Systolic Blood Pressure Last Admin: 10/29/18 17:46 Dose: 50 mg Ceftriaxone Sodium 1 gm/ (Sodium Chloride) 100 mls @ 100 mls/hr IVPB Q12H [facility]; Protocol Last Admin: 10/30/18 19:14 Dose: 100 mls/hr Dextrose (Dextrose 5% In Water 1000 Ml) 1,000 mls @ 0 mls/hr IV .Q0M PRN; Protocol PRN Reason: Hypoglycemia Protocol Influenza Virus Vaccine (Fluzone Quad [id number]) 60 mcg IM .ONCE ONE Stop: 11/01/18 10:01 Insulin Human Regular (Novolin R) 0 unit SC ACHS [facility]; Protocol Last Admin: 10/30/18 21:37 Dose: Not Given Nicotine (Nicoderm Cq) 1 patch TD DAILY [facility] Last Admin: 10/30/18 09:55 Dose: 1 patch Pneumococcal Polyvalent Vaccine (Pneumovax 23 Vaccine) 0.5 ml IM .ONCE ONE Stop: 11/01/18 10:01 Risperidone (Risperdal Tab) 1 mg PO BID [facility] Last Admin: 10/30/18 17:55 Dose: 1 mg - Labs Labs: 10/31/18 06:58 10/31/18 06:58 PT 15.3 SECONDS (9.7-12.2) H 10/28/18 13:22 INR 1.4 10/28/18 13:22 APTT 40 SECONDS (21-34) H 10/28/18 13:22 - Constitutional Appears: Non-toxic, No Acute Distress - Head Exam Head Exam: ATRAUMATIC, NORMAL INSPECTION, NORMOCEPHALIC - Eye Exam Eye Exam: EOMI, Normal appearance Pupil Exam: NORMAL ACCOMODATION - ENT Exam ENT Exam: Mucous Membranes Moist, Normal Exam - Neck Exam Neck Exam: Full ROM, Normal Inspection - Respiratory Exam Respiratory Exam: Clear to Ausculation Bilateral, NORMAL BREATHING PATTERN. absent: Accessory Muscle Use, Rales, Rhonchi, Wheezes, Respiratory Distress, Stridor - Cardiovascular Exam Cardiovascular Exam: REGULAR RHYTHM, +S1, +S2 - GI/Abdominal Exam GI & Abdominal Exam: Soft, Normal Bowel Sounds. absent: Distended, Firm, Guarding, Rigid, Tenderness - Extremities Exam Extremities Exam: Normal Capillary Refill, Normal Inspection. absent: Calf Tenderness, Pedal Edema - Back Exam Back Exam: NORMAL INSPECTION - Neurological Exam Neurological Exam: Alert, Awake, Oriented x3 Assessment and Plan - Assessment and Plan (Free Text) Assessment: 72 year old -Filipino female with PMHx of HTN, HLD, DM, bipolar disorder, parkinson's presenting with b/l hip pain radiating to LE, unintentional weight loss, suspicious lytic lesions throughout spinal vertebral bodies on CT. Plan: AMS, r/o CVA -per daughter, Narcisa Campo, one week ago patient had facial drooping and slurred speech and inability to walk one day and then improvement, the daughter reported that the patient did not want to go to the hospital. -CT head: no acute intracranial pathology noted -f/u MRI brain -patient does not feel comfortable getting MRI d/t claustrophobia Lytic lesions vertebral bodies- suspect Multiple myeloma vs metastatic disease -Chest CT: multilobar infection vs inflammatory process, numerous lytic lesions through vertebral bodies raising suspicion of multiple myeloma - Past lesions seen in previous imaging on past admissions/ED visits -Heme/Onc recs (Dr. Francisco) appreciated -lytic lesions etiology unclear, f/u bone scan -f/u multiple myeloma evaluation - CRP 61.9, Ca125 WNL, Ca 19-9 83.8 - IgA 519.4 , IgG WNL, IgM wnl - elevated free kappa light chains, free pedro light chain B/L hip, R shoulder pain -XR hip/pelvis: no acute findings m moderate approx degenerative changes - shoulder xray: no acute changes, b/l degenerative changes - tylenol Q6 PRN for pain r/o respiratory infection -CXR: suspected early infiltrate Rt base -CT chest: multilobar infection vs inflamattory process, no evidence of PE -blood culture, urine cultures demonstrate no growth - Meds: -Rocephin 1gm IV BID - Azithromycin 500mg IV QD Bipolar disorder -continue home meds -risperidone 1mg BID -Depakote 500mg PO BID Parkinson disease - continue home med benztropine 1mg BID DM - not currently taking DM medications - A1C 6.3 - Accuchecks - ISS low dose - hypoglycemia protocol - gabapentin 300mg PO BID for diabetic neuropathy HTN - not currently taking any HTN medications - continue monitoring vitals - continue aspirin 81mg PO daily HLD - not on any statin medication - Lipid panel - low HDL PPx, Diet, Disposition -DVT ppx: scds, Heparin 5000U SC Q12h -GI ppx: pepcid 20 mg IVP -Diet: Diabetic low carb consistent diet, 2g Na -PT/OT on case -Code status: full code Case discussed with Dr. Deirdre Green DO, PGY-1 <Brian Gilmore H - Last Filed: 10/31/18 18:42> Objective - Vital Signs/Intake and Output Vital Signs (last 24 hours): Temp Pulse Resp BP Pulse Ox 97.9 F 59 L 20 177/78 H 95 10/31/18 16:00 10/31/18 16:00 10/31/18 16:00 10/31/18 16:00 10/31/18 16:00 Intake and Output: 10/31/18 10/31/18 06:59 18:59 Intake Total 120 Balance 120 - Medications Medications: Current Medications Acetaminophen (Tylenol 325mg Tab) 650 mg PO Q6 PRN PRN Reason: Pain, severe (8-10) Aspirin (Aspirin Chewable) 81 mg PO DAILY [facility] Last Admin: 10/31/18 10:11 Dose: 81 mg Benztropine Mesylate (Cogentin) 1 mg PO BID [facility] Last Admin: 10/31/18 17:35 Dose: 1 mg Dextrose (Dextrose 50% Inj) 0 ml IV STAT PRN; Protocol PRN Reason: Hypoglycemia Protocol Dextrose (Glutose 15) 0 gm PO ONCE PRN; Protocol PRN Reason: Hypoglycemia Protocol Divalproex Sodium (Depakote Dr) 500 mg PO BID [facility] Last Admin: 10/31/18 17:35 Dose: 500 mg Famotidine (Pepcid) 20 mg IVP DAILY [facility] Last Admin: 10/31/18 10:12 Dose: 20 mg Gabapentin (Neurontin) 300 mg PO BID [facility] Last Admin: 10/31/18 17:36 Dose: 300 mg Glucagon (Glucagen Diagnostic Kit) 0 mg IM STAT PRN; Protocol PRN Reason: Hypoglycemia Protocol Heparin Sodium (Porcine) (Heparin) 5,000 units SC Q12 [facility] Last Admin: 10/31/18 10:13 Dose: 5,000 units Hydralazine HCl (Apresoline) 50 mg PO TID PRN PRN Reason: Systolic Blood Pressure Last Admin: 10/29/18 17:46 Dose: 50 mg Ceftriaxone Sodium 1 gm/ (Sodium Chloride) 100 mls @ 100 mls/hr IVPB Q12H [facility]; Protocol Last Admin: 10/31/18 08:46 Dose: 100 mls/hr Dextrose (Dextrose 5% In Water 1000 Ml) 1,000 mls @ 0 mls/hr IV .Q0M PRN; Protocol PRN Reason: Hypoglycemia Protocol Influenza Virus Vaccine (Fluzone Quad [id number]) 60 mcg IM .ONCE ONE Stop: 11/01/18 10:01 Insulin Human Regular (Novolin R) 0 unit SC ACHS [facility]; Protocol Last Admin: 10/31/18 17:36 Dose: Not Given Nicotine (Nicoderm Cq) 1 patch TD DAILY [facility] Last Admin: 10/31/18 10:10 Dose: 1 patch Pneumococcal Polyvalent Vaccine (Pneumovax 23 Vaccine) 0.5 ml IM .ONCE ONE Stop: 11/01/18 10:01 Risperidone (Risperdal Tab) 1 mg PO BID [facility] Last Admin: 10/31/18 17:36 Dose: 1 mg - Labs Labs: 10/31/18 06:58 10/31/18 06:58 PT 15.3 SECONDS (9.7-12.2) H 10/28/18 13:22 INR 1.4 10/28/18 13:22 APTT 40 SECONDS (21-34) H 10/28/18 13:22 Attending/Attestation - Attestation I have personally seen and examined this patient.: Yes I have fully participated in the care of the patient.: Yes I have reviewed all pertinent clinical information, including history, physical exam and plan: Yes Notes (Text): 10/31/18 18:40 Medical attending: Patient was seen and examined by me. Agree with the above note by the resident The patient was not josefa ny acute distress Additional lab work was ordered by hematology oncology. A whole body bones scan has been ordered for further assessment of lytic lesions We will try to get mammogram per advise of hematology oncology Brian Gimlore
--- NOTE | 2018-10-31 07:47 | CP.PCM.PN ---
Subjective - Date & Time of Evaluation Date of Evaluation: 10/31/18 Time of Evaluation: 07:47 - Subjective Subjective: PGY-1 Medicine Progress Note for Dr. Gilmore Objective - Vital Signs/Intake and Output Vital Signs (last 24 hours): Temp Pulse Resp BP Pulse Ox 98.5 F 57 L 20 147/80 94 L 10/31/18 00:00 10/31/18 00:00 10/31/18 00:00 10/31/18 00:00 10/31/18 00:00 Intake and Output: 10/31/18 10/31/18 06:59 18:59 Intake Total 120 Balance 120 - Medications Medications: Current Medications Acetaminophen (Tylenol 325mg Tab) 650 mg PO Q6 PRN PRN Reason: Pain, severe (8-10) Aspirin (Aspirin Chewable) 81 mg PO DAILY [facility] Last Admin: 10/30/18 09:55 Dose: 81 mg Benztropine Mesylate (Cogentin) 1 mg PO BID [facility] Last Admin: 10/30/18 17:55 Dose: 1 mg Dextrose (Dextrose 50% Inj) 0 ml IV STAT PRN; Protocol PRN Reason: Hypoglycemia Protocol Dextrose (Glutose 15) 0 gm PO ONCE PRN; Protocol PRN Reason: Hypoglycemia Protocol Divalproex Sodium (Depakote Dr) 500 mg PO BID [facility] Last Admin: 10/30/18 17:55 Dose: 500 mg Famotidine (Pepcid) 20 mg IVP DAILY [facility] Last Admin: 10/30/18 09:55 Dose: 20 mg Gabapentin (Neurontin) 300 mg PO BID [facility] Last Admin: 10/30/18 17:54 Dose: 300 mg Glucagon (Glucagen Diagnostic Kit) 0 mg IM STAT PRN; Protocol PRN Reason: Hypoglycemia Protocol Heparin Sodium (Porcine) (Heparin) 5,000 units SC Q12 [facility] Last Admin: 10/30/18 21:36 Dose: 5,000 units Hydralazine HCl (Apresoline) 50 mg PO TID PRN PRN Reason: Systolic Blood Pressure Last Admin: 10/29/18 17:46 Dose: 50 mg Ceftriaxone Sodium 1 gm/ (Sodium Chloride) 100 mls @ 100 mls/hr IVPB Q12H [facility]; Protocol Last Admin: 10/30/18 19:14 Dose: 100 mls/hr Dextrose (Dextrose 5% In Water 1000 Ml) 1,000 mls @ 0 mls/hr IV .Q0M PRN; Protocol PRN Reason: Hypoglycemia Protocol Influenza Virus Vaccine (Fluzone Quad [id number]) 60 mcg IM .ONCE ONE Stop: 11/01/18 10:01 Insulin Human Regular (Novolin R) 0 unit SC ACHS [facility]; Protocol Last Admin: 10/30/18 21:37 Dose: Not Given Nicotine (Nicoderm Cq) 1 patch TD DAILY [facility] Last Admin: 10/30/18 09:55 Dose: 1 patch Pneumococcal Polyvalent Vaccine (Pneumovax 23 Vaccine) 0.5 ml IM .ONCE ONE Stop: 11/01/18 10:01 Risperidone (Risperdal Tab) 1 mg PO BID [facility] Last Admin: 10/30/18 17:55 Dose: 1 mg - Labs Labs: 10/31/18 06:58 10/31/18 06:58 PT 15.3 SECONDS (9.7-12.2) H 10/28/18 13:22 INR 1.4 10/28/18 13:22 APTT 40 SECONDS (21-34) H 10/28/18 13:22
[2018-10-31] MEDS: (Novolin R) Insulin Human Regular 100 units/ml vial SC SCH ×4 (08:16→21:50)
[2018-10-31 10:11] LABS: CREATININE, 24 HOUR URINE 0.29 {null, g/24 h} (0.50-2.15)
[2018-10-31] MEDS: Divalproex 500 mg DR Tab PO SCH ×2 (10:12→17:35)
[2018-10-31 11:13] LABS: IMMUNOGLOBULIN A 519.4 mg/dL (70.0-400.0); IMMUNOGLOBULIN G 1128.1 mg/dL (700.0-1600.0)
--- NOTE | 2018-10-31 13:35 | CON ---
DATE: 10/31/2018 HEMATOLOGY CONSULTATION HISTORY OF PRESENT ILLNESS: This is a 72-year-old woman who actually seems to show lytic lesions. The patient gives a very poor history. She says that she has been having pain in her bones, but it is unclear as to how long this has been going on for, whether a year or whether it just got worse over the last couple of months or whether felt worse over the last couple of days. She probably decided to come to the hospital for the pain. PHYSICAL EXAMINATION: SKIN: No petechiae, no bruises. HEENT: Anicteric. NODES: Nonpalpable in the axillary, cervical, supraclavicular, or inguinal regions. LUNGS: Clear at present. CHEST: There is diffuse bone pain on the vertebral bones, but nothing specific of the specific bone. BREASTS: No mass, discharge, dimpling. HEART: S1, S2. ABDOMEN: No liver or spleen. No tenderness. EXTREMITIES: No edema. CENTRAL NERVOUS SYSTEM: No focal finding. IMAGING: The CAT scan of the chest was read as lytic lesions but when they did all the other x-rays, it did not show these lytic lesions; for instance, the CAT scan of the cervical spine shows extensive spondylosis, extensive stenosis, and degenerative disease, osteophytic growth but no mention whatsoever of any lytic lesions. LABORATORY FINDINGS: Show hemoglobin of 11.7, normal white cells. The laboratory findings shows normal kidney function. Calcium is normal. Liver function test is normal. The total protein is normal. ASSESSMENT AND PLAN: It is unclear to me as to the nature of these lytic lesions. I am ordering a bone scan today, we are waiting for the multiple myeloma evaluation. She does not remember when she had a mammogram done, so I am going to advise that she has a mammogram. We are not going for a bone marrow biopsy until we see more specifically what to do. Camilo Francisco MD
--- NOTE | 2018-10-31 16:42 | NM ---
Date of service: 10/31/2018 PROCEDURE: Whole Body Bone Scan HISTORY: lytic lesions COMPARISON: 10/28/2018 CT thorax. Summary of findings on the comparison examination: Numerous small circumscribed lytic lesions throughout the vertebral bodies racing suspicion suspicion of myeloma TECHNIQUE: Following administration of 24.6 miCu of Tc MDP multiplanar whole body images were obtained. FINDINGS: Evidence for bony metastatic disease: None. Degenerative uptake: None. Physiologic uptake: Normal physiologic activity in the kidneys. Other findings: Degenerative changes both knees. IMPRESSION: No evidence of bony metastatic disease.
[2018-11-01 00:26] LABS: ALBUMIN (PEP) 2.8 g/dL (3.8-4.8); ALPHA-1-GLOBULIN (PEP) 0.5 g/dL (0.2-0.3)
[2018-11-01 07:23] LABS: BASO # 0.1 K/uL (0.0-0.2); BASO % 0.8 % (0.0-2.0); EOS # 0.2 K/uL (0.0-0.7); EOS % 2.8 % (0.0-4.0); HEMOGLOBIN 11.4 g/dL (11.0-16.0); LYMPH # 2.7 K/uL (1.0-4.3); LYMPH % 32.9 % (20.0-40.0); MEAN CELL VOLUME 94.1 fL (81.0-99.0); MEAN CORPUSCULAR HEMOGLOBIN 30.6 pg (27.0-31.0); MEAN CORPUSCULAR HGB CONC 32.5 g/dL (33.0-37.0); MEAN PLATELET VOLUME 7.2 fL (7.2-11.7); MONO # 0.8 K/uL (0.0-0.8); MONO % 9.9 % (0.0-10.0); NEUT # 4.4 K/uL (1.8-7.0); NEUT % 53.6 % (50.0-75.0); RBC 3.71 Mil/uL (3.80-5.20); RED CELL DISTRIBUTION WIDTH 15.5 % (11.5-14.5); WHITE BLOOD COUNT 8.2 K/uL (4.8-10.8)
[2018-11-01 07:41] LABS: BLOOD UREA NITROGEN 16 mg/dL (7-17); CALCIUM 9.1 mg/dl (8.6-10.4); GFR NON-AFRICAN AMERICAN > 60
[2018-11-01] MEDS: (Novolin R) Insulin Human Regular 100 units/ml vial SC SCH ×4 (07:58→22:06)
--- NOTE | 2018-11-01 08:53 | CP.PCM.PN ---
<Lenny Green - Last Filed: 11/01/18 15:56> Subjective - Date & Time of Evaluation Date of Evaluation: 11/01/18 Time of Evaluation: 08:52 - Subjective Subjective: PGY-1 Medicine Progress Note for Dr. Gilmore Patient seen and examined at bedside this AM. No acute overnight events reported. Patient states back pain is improved this morning. Tolerating PO diet, seen ambulating with PT. Denies any headaches, chest pain, palpitations, sob, abdominal pain, n/v/d/c. No other acute somatic complaints at this time. Objective - Vital Signs/Intake and Output Vital Signs (last 24 hours): Temp Pulse Resp BP Pulse Ox 98.2 F 61 20 147/90 97 11/01/18 07:00 11/01/18 07:00 11/01/18 07:00 11/01/18 07:00 11/01/18 07:00 Intake and Output: 11/01/18 11/01/18 06:59 18:59 Intake Total 350 Balance 350 - Medications Medications: Current Medications Acetaminophen (Tylenol 325mg Tab) 650 mg PO Q6 PRN PRN Reason: Pain, severe (8-10) Aspirin (Aspirin Chewable) 81 mg PO DAILY [facility] Last Admin: 10/31/18 10:11 Dose: 81 mg Benztropine Mesylate (Cogentin) 1 mg PO BID [facility] Last Admin: 10/31/18 17:35 Dose: 1 mg Dextrose (Dextrose 50% Inj) 0 ml IV STAT PRN; Protocol PRN Reason: Hypoglycemia Protocol Dextrose (Glutose 15) 0 gm PO ONCE PRN; Protocol PRN Reason: Hypoglycemia Protocol Divalproex Sodium (Depakote Dr) 500 mg PO BID [facility] Last Admin: 10/31/18 17:35 Dose: 500 mg Famotidine (Pepcid) 20 mg IVP DAILY [facility] Last Admin: 10/31/18 10:12 Dose: 20 mg Gabapentin (Neurontin) 300 mg PO BID [facility] Last Admin: 10/31/18 17:36 Dose: 300 mg Glucagon (Glucagen Diagnostic Kit) 0 mg IM STAT PRN; Protocol PRN Reason: Hypoglycemia Protocol Heparin Sodium (Porcine) (Heparin) 5,000 units SC Q12 [facility] Last Admin: 10/31/18 21:52 Dose: 5,000 units Hydralazine HCl (Apresoline) 50 mg PO TID PRN PRN Reason: Systolic Blood Pressure Last Admin: 10/29/18 17:46 Dose: 50 mg Ceftriaxone Sodium 1 gm/ (Sodium Chloride) 100 mls @ 100 mls/hr IVPB Q12H [facility]; Protocol Last Admin: 11/01/18 06:53 Dose: 100 mls/hr Dextrose (Dextrose 5% In Water 1000 Ml) 1,000 mls @ 0 mls/hr IV .Q0M PRN; Protocol PRN Reason: Hypoglycemia Protocol Influenza Virus Vaccine (Fluzone Quad [id number]) 60 mcg IM .ONCE ONE Stop: 11/01/18 10:01 Insulin Human Regular (Novolin R) 0 unit SC ACHS [facility]; Protocol Last Admin: 11/01/18 07:58 Dose: Not Given Nicotine (Nicoderm Cq) 1 patch TD DAILY [facility] Last Admin: 10/31/18 10:10 Dose: 1 patch Pneumococcal Polyvalent Vaccine (Pneumovax 23 Vaccine) 0.5 ml IM .ONCE ONE Stop: 11/01/18 10:01 Risperidone (Risperdal Tab) 1 mg PO BID [facility] Last Admin: 10/31/18 17:36 Dose: 1 mg - Labs Labs: 11/01/18 07:10 11/01/18 07:10 PT 15.3 SECONDS (9.7-12.2) H 10/28/18 13:22 INR 1.4 10/28/18 13:22 APTT 40 SECONDS (21-34) H 10/28/18 13:22 - Constitutional Appears: Non-toxic, No Acute Distress - Head Exam Head Exam: ATRAUMATIC, NORMAL INSPECTION, NORMOCEPHALIC - Eye Exam Eye Exam: EOMI, Normal appearance Pupil Exam: NORMAL ACCOMODATION - ENT Exam ENT Exam: Mucous Membranes Moist, Normal Exam - Neck Exam Neck Exam: Full ROM, Normal Inspection - Respiratory Exam Respiratory Exam: Clear to Ausculation Bilateral, NORMAL BREATHING PATTERN. absent: Accessory Muscle Use, Rales, Rhonchi, Wheezes, Respiratory Distress, Stridor - Cardiovascular Exam Cardiovascular Exam: REGULAR RHYTHM, +S1, +S2 - GI/Abdominal Exam GI & Abdominal Exam: Soft, Normal Bowel Sounds. absent: Distended, Firm, Guarding, Rigid, Tenderness, Organomegaly, Rebound - Extremities Exam Extremities Exam: Normal Capillary Refill, Normal Inspection. absent: Calf Tenderness, Pedal Edema - Back Exam Back Exam: NORMAL INSPECTION - Neurological Exam Neurological Exam: Alert, Awake, Oriented x3 - Psychiatric Exam Psychiatric exam: Normal Affect, Normal Mood - Skin Skin Exam: Dry, Intact, Normal Color, Warm Assessment and Plan - Assessment and Plan (Free Text) Assessment: 72 year old -Turkish female with PMHx of HTN, HLD, DM, bipolar disorder, parkinson's presenting with b/l hip pain radiating to LE, unintentional weight l oss, suspicious lytic lesions throughout spinal vertebral bodies on CT. Plan: Lytic lesions vertebral bodies- suspect Multiple myeloma vs metastatic disease -Chest CT: multilobar infection vs inflammatory process, numerous lytic lesions through vertebral bodies raising suspicion of multiple myeloma - Past lesions seen in previous imaging on past admissions/ED visits -Heme/Onc recs (Dr. Francisco) appreciated -bone scan: no acute findings noted -no evidence for metastatic disease or multiple myeloma -recommend mammogram, continue to observe - CRP 61.9, Ca125 WNL, Ca 19-9 83.8 - IgA 519.4 , IgG WNL, IgM wnl - elevated free kappa light chains, free pedro light chain - f/u further immunology workup per Heme/Onc recs AMS, r/o CVA--resolved -patient is alert and oriented, no facial drooping noted or focal deficits -per daughter, Narcisa Campo, one week ago patient had facial drooping and slurred speech and inability to walk one day and then improvement, the daughter reported that the patient did not want to go to the hospital. -CT head: no acute intracranial pathology noted -f/u MRI brain -patient does not feel comfortable getting MRI d/t claustrophobia r/o respiratory infection--resolved -CXR: suspected early infiltrate Rt base -CT chest: multilobar infection vs inflamattory process, no evidence of PE -blood culture, urine cultures: demonstrate no growth - Meds: -Rocephin 1gm IV BID B/L hip, R shoulder pain-improved -XR hip/pelvis: no acute findings m moderate approx degenerative changes - shoulder xray: no acute changes, b/l degenerative changes - tylenol Q6 PRN for pain Bipolar disorder -continue home meds -risperidone 1mg BID -Depakote 500mg PO BID Parkinson disease - continue home med benztropine 1mg BID DM - not currently taking DM medications - A1C 6.3 - Accuchecks - ISS low dose - hypoglycemia protocol - gabapentin 300mg PO BID for diabetic neuropathy HTN - not currently taking any HTN medications - continue monitoring vitals - continue aspirin 81mg PO daily HLD - not on any statin medication - Lipid panel - low HDL PPx, Diet, Disposition -DVT ppx: scds, Heparin 5000U SC Q12h -GI ppx: pepcid 20 mg IVP -Diet: Diabetic low carb consistent diet, 2g Na -PT/OT on case: recommend MAKENZIE -Code status: full code Case discussed with Dr. Deirdre Green DO, PGY-1 <Brian Gilmore - Last Filed: 11/02/18 07:49> Objective - Vital Signs/Intake and Output Vital Signs (last 24 hours): Temp Pulse Resp BP Pulse Ox 97.9 F 59 L 20 146/83 94 L 11/02/18 00:00 11/02/18 00:00 11/02/18 00:00 11/02/18 00:00 11/02/18 00:00 Intake and Output: 11/02/18 11/02/18 06:59 18:59 Intake Total 840 Balance 840 - Medications Medications: Current Medications Acetaminophen (Tylenol 325mg Tab) 650 mg PO Q6 PRN PRN Reason: Pain, severe (8-10) Aspirin (Aspirin Chewable) 81 mg PO DAILY [facility] Last Admin: 11/01/18 09:33 Dose: 81 mg Benztropine Mesylate (Cogentin) 1 mg PO BID [facility] Last Admin: 11/01/18 17:23 Dose: 1 mg Dextrose (Dextrose 50% Inj) 0 ml IV STAT PRN; Protocol PRN Reason: Hypoglycemia Protocol Dextrose (Glutose 15) 0 gm PO ONCE PRN; Protocol PRN Reason: Hypoglycemia Protocol Divalproex Sodium (Depakote Dr) 500 mg PO BID [facility] Last Admin: 11/01/18 17:23 Dose: 500 mg Famotidine (Pepcid) 20 mg IVP DAILY [facility] Last Admin: 11/01/18 09:33 Dose: 20 mg Gabapentin (Neurontin) 300 mg PO BID [facility] Last Admin: 11/01/18 17:21 Dose: 300 mg Glucagon (Glucagen Diagnostic Kit) 0 mg IM STAT PRN; Protocol PRN Reason: Hypoglycemia Protocol Heparin Sodium (Porcine) (Heparin) 5,000 units SC Q12 [facility] Last Admin: 11/01/18 21:20 Dose: 5,000 units Hydralazine HCl (Apresoline) 50 mg PO TID PRN PRN Reason: Systolic Blood Pressure Last Admin: 10/29/18 17:46 Dose: 50 mg Ceftriaxone Sodium 1 gm/ (Sodium Chloride) 100 mls @ 100 mls/hr IVPB Q12H [facility]; Protocol Last Admin: 11/01/18 20:30 Dose: 100 mls/hr Dextrose (Dextrose 5% In Water 1000 Ml) 1,000 mls @ 0 mls/hr IV .Q0M PRN; Protocol PRN Reason: Hypoglycemia Protocol Insulin Human Regular (Novolin R) 0 unit SC ACHS [facility]; Protocol Last Admin: 11/01/18 22:06 Dose: Not Given Nicotine (Nicoderm Cq) 1 patch TD DAILY [facility] Last Admin: 11/01/18 09:32 Dose: 1 patch Risperidone (Risperdal Tab) 1 mg PO BID [facility] Last Admin: 11/01/18 17:24 Dose: 1 mg - Labs Labs: 11/01/18 07:10 11/01/18 07:10 PT 15.3 SECONDS (9.7-12.2) H 10/28/18 13:22 INR 1.4 10/28/18 13:22 APTT 40 SECONDS (21-34) H 10/28/18 13:22 Attending/Attestation - Attestation I have personally seen and examined this patient.: Yes I have fully participated in the care of the patient.: Yes I have reviewed all pertinent clinical information, including history, physical exam and plan: Yes
[2018-11-01] MEDS: Divalproex 500 mg DR Tab PO SCH ×2 (09:32→17:23)
[2018-11-01] MEDS ORDERED: Influenza Vaccine 60 MCG/0.5 ML SYR (3 yr & up) IM ONE (10:00)
[2018-11-01] MEDS ORDERED: Pneumococcal 23-Valent Vaccine IM ONE (10:00)
--- NOTE | 2018-11-01 12:58 | PN ---
DATE: 11/01/2018 SUBJECTIVE: A 72-year-old lady, where there was a reading I wanted the x-rays of lytic lesions, but not found on the other x-rays and CAT scans. The patient had a bone scan. The bone scan shows no evidence of any metastatic cancer or abnormalities in the bones. The IgA is slightly elevated, normal should be under 400 and this is about 500; however, she has essentially no other signs for multiple myeloma. The BUN and creatinine are normal. The calcium is normal. The globulin is 3.4. The kappa/lambda ratio was about 1.1, which 2.2 is normal. The SPEP showed an acute inflammatory pattern with elevation of acute phase proteins. I am awaiting for the beta 2 microglobulin and the LDH, but basically . The LDH is 436, normal is under 618. ASSESSMENT AND PLAN: There does not seem to be any evidence here for metastatic cancer or for multiple myeloma. I will order mammogram and do that as an inpatient, but at this point, I would observe. Camilo Francisco MD
--- NOTE | 2018-11-02 00:33 | CP.PCM.PN ---
<[place]iana Shelby - Last Filed: 11/02/18 00:32> Subjective - Date & Time of Evaluation Date of Evaluation: 11/02/18 Time of Evaluation: 00:32 - Subjective Subjective: Indiana Shelby PGY1 Progress Note for Dr. Gilmore Pt was examined at bedside. Pt has no complaints at this time. Pt denies fever, chills, abdominal pain, chest pain, shortness of breath, nausea, vomiting, diarrhea, dysuria. Objective - Vital Signs/Intake and Output Vital Signs (last 24 hours): Temp Pulse Resp BP Pulse Ox 97.9 F 59 L 20 146/83 94 L 11/02/18 00:00 11/02/18 00:00 11/02/18 00:00 11/02/18 00:00 11/02/18 00:00 Intake and Output: 11/01/18 11/02/18 18:59 06:59 Intake Total 600 600 Balance 600 600 - Medications Medications: Current Medications Acetaminophen (Tylenol 325mg Tab) 650 mg PO Q6 PRN PRN Reason: Pain, severe (8-10) Aspirin (Aspirin Chewable) 81 mg PO DAILY [facility] Last Admin: 11/01/18 09:33 Dose: 81 mg Benztropine Mesylate (Cogentin) 1 mg PO BID [facility] Last Admin: 11/01/18 17:23 Dose: 1 mg Dextrose (Dextrose 50% Inj) 0 ml IV STAT PRN; Protocol PRN Reason: Hypoglycemia Protocol Dextrose (Glutose 15) 0 gm PO ONCE PRN; Protocol PRN Reason: Hypoglycemia Protocol Divalproex Sodium (Depakote Dr) 500 mg PO BID [facility] Last Admin: 11/01/18 17:23 Dose: 500 mg Famotidine (Pepcid) 20 mg IVP DAILY [facility] Last Admin: 11/01/18 09:33 Dose: 20 mg Gabapentin (Neurontin) 300 mg PO BID [facility] Last Admin: 11/01/18 17:21 Dose: 300 mg Glucagon (Glucagen Diagnostic Kit) 0 mg IM STAT PRN; Protocol PRN Reason: Hypoglycemia Protocol Heparin Sodium (Porcine) (Heparin) 5,000 units SC Q12 [facility] Last Admin: 11/01/18 21:20 Dose: 5,000 units Hydralazine HCl (Apresoline) 50 mg PO TID PRN PRN Reason: Systolic Blood Pressure Last Admin: 10/29/18 17:46 Dose: 50 mg Ceftriaxone Sodium 1 gm/ (Sodium Chloride) 100 mls @ 100 mls/hr IVPB Q12H [facility]; Protocol Last Admin: 11/01/18 20:30 Dose: 100 mls/hr Dextrose (Dextrose 5% In Water 1000 Ml) 1,000 mls @ 0 mls/hr IV .Q0M PRN; Protocol PRN Reason: Hypoglycemia Protocol Insulin Human Regular (Novolin R) 0 unit SC ACHS [facility]; Protocol Last Admin: 11/01/18 22:06 Dose: Not Given Nicotine (Nicoderm Cq) 1 patch TD DAILY [facility] Last Admin: 11/01/18 09:32 Dose: 1 patch Risperidone (Risperdal Tab) 1 mg PO BID [facility] Last Admin: 11/01/18 17:24 Dose: 1 mg - Labs Labs: 11/01/18 07:10 11/01/18 07:10 PT 15.3 SECONDS (9.7-12.2) H 10/28/18 13:22 INR 1.4 10/28/18 13:22 APTT 40 SECONDS (21-34) H 10/28/18 13:22 - Additional Findings Additional findings: - Constitutional Appears: Non-toxic, No Acute Distress - Head Exam Head Exam: ATRAUMATIC, NORMAL INSPECTION, NORMOCEPHALIC - Eye Exam Eye Exam: EOMI, Normal appearance Pupil Exam: NORMAL ACCOMODATION - ENT Exam ENT Exam: Mucous Membranes Moist, Normal Exam - Neck Exam Neck Exam: Full ROM, Normal Inspection - Respiratory Exam Respiratory Exam: Clear to Ausculation Bilateral, NORMAL BREATHING PATTERN. absent: Accessory Muscle Use, Rales, Rhonchi, Wheezes, Respiratory Distress, Stridor - Cardiovascular Exam Cardiovascular Exam: REGULAR RHYTHM, +S1, +S2 - GI/Abdominal Exam GI & Abdominal Exam: Soft, Normal Bowel Sounds. absent: Distended, Firm, Guarding, Rigid, Tenderness, Organomegaly, Rebound - Extremities Exam Extremities Exam: Normal Capillary Refill, Normal Inspection. absent: Calf Tenderness, Pedal Edema - Back Exam Back Exam: NORMAL INSPECTION - Neurological Exam Neurological Exam: Alert, Awake, Oriented x3 - Psychiatric Exam Psychiatric exam: Normal Affect, Normal Mood - Skin Skin Exam: Dry, Intact, Normal Color, Warm Assessment and Plan - Assessment and Plan (Free Text) Assessment: 72 year old -[place] female with PMHx of HTN, HLD, DM, bipolar disorder, parkinson's presenting with b/l hip pain radiating to LE, unintentional weight loss, suspicious lytic lesions throughout spinal vertebral bodies on CT. Plan: Lytic lesions vertebral bodies- suspect Multiple myeloma vs metastatic disease -Chest CT: multilobar infection vs inflammatory process, numerous lytic lesions through vertebral bodies raising suspicion of multiple myeloma - Past lesions seen in previous imaging on past admissions/ED visits -Heme/Onc recs (Dr. Francisco) appreciated -bone scan: no acute findings noted -no evidence for metastatic disease or multiple myeloma -recommend mammogram, continue to observe - CRP 61.9, Ca125 WNL, Ca 19-9 83.8 - IgA 519.4 , IgG WNL, IgM wnl - elevated free kappa light chains, free pedro light chain - f/u further immunology workup per Heme/Onc recs AMS, r/o CVA--resolved -patient is alert and oriented, no facial drooping noted or focal deficits -per daughter, Narcisa Campo, one week ago patient had facial drooping and slurred speech and inability to walk one day and then improvement, the daughter reported that the patient did not want to go to the hospital. -CT head: no acute intracranial pathology noted -f/u MRI brain -patient does not feel comfortable getting MRI d/t claustrophobia r/o respiratory infection--resolved -CXR: suspected early infiltrate Rt base -CT chest: multilobar infection vs inflamattory process, no evidence of PE -blood culture, urine cultures: demonstrate no growth - Meds: -Rocephin 1gm IV BID B/L hip, R shoulder pain-improved -XR hip/pelvis: no acute findings m moderate approx degenerative changes - shoulder xray: no acute changes, b/l degenerative changes - tylenol Q6 PRN for pain Bipolar disorder -continue home meds -risperidone 1mg BID -Depakote 500mg PO BID Parkinson disease - continue home med benztropine 1mg BID DM - not currently taking DM medications - A1C 6.3 - Accuchecks - ISS low dose - hypoglycemia protocol - gabapentin 300mg PO BID for diabetic neuropathy HTN - not currently taking any HTN medications - continue monitoring vitals - continue aspirin 81mg PO daily HLD - not on any statin medication - Lipid panel - low HDL PPx, Diet, Disposition -DVT ppx: scds, Heparin 5000U SC Q12h -GI ppx: pepcid 20 mg IVP -Diet: Diabetic low carb consistent diet, 2g Na -PT/OT on case: recommend MAKENZIE -Code status: full code <Brian Gilmore H - Last Filed: 11/02/18 17:33> Objective - Vital Signs/Intake and Output Vital Signs (last 24 hours): Temp Pulse Resp BP Pulse Ox 98.6 F 67 20 133/89 94 L 11/02/18 16:00 11/02/18 16:00 11/02/18 16:00 11/02/18 16:00 11/02/18 16:00 Intake and Output: 11/02/18 11/02/18 06:59 18:59 Intake Total 840 600 Balance 840 600 - Medications Medications: Current Medications Acetaminophen (Tylenol 325mg Tab) 650 mg PO Q6 PRN PRN Reason: Pain, severe (8-10) Aspirin (Aspirin Chewable) 81 mg PO DAILY [facility] Last Admin: 11/02/18 10:26 Dose: 81 mg Benztropine Mesylate (Cogentin) 1 mg PO BID [facility] Last Admin: 11/02/18 10:27 Dose: 1 mg Dextrose (Dextrose 50% Inj) 0 ml IV STAT PRN; Protocol PRN Reason: Hypoglycemia Protocol Dextrose (Glutose 15) 0 gm PO ONCE PRN; Protocol PRN Reason: Hypoglycemia Protocol Divalproex Sodium (Depakote Dr) 500 mg PO BID [facility] Last Admin: 11/02/18 10:27 Dose: 500 mg Famotidine (Pepcid) 20 mg IVP DAILY [facility] Last Admin: 11/02/18 10:32 Dose: 20 mg Gabapentin (Neurontin) 300 mg PO BID [facility] Last Admin: 11/02/18 10:27 Dose: 300 mg Glucagon (Glucagen Diagnostic Kit) 0 mg IM STAT PRN; Protocol PRN Reason: Hypoglycemia Protocol Heparin Sodium (Porcine) (Heparin) 5,000 units SC Q12 [facility] Last Admin: 11/02/18 10:26 Dose: 5,000 units Hydralazine HCl (Apresoline) 50 mg PO TID PRN PRN Reason: Systolic Blood Pressure >160 Ceftriaxone Sodium 1 gm/ (Sodium Chloride) 100 mls @ 100 mls/hr IVPB Q12H [facility]; Protocol Last Admin: 11/02/18 08:37 Dose: 100 mls/hr Dextrose (Dextrose 5% In Water 1000 Ml) 1,000 mls @ 0 mls/hr IV .Q0M PRN; Protocol PRN Reason: Hypoglycemia Protocol Insulin Human Regular (Novolin R) 0 unit SC ACHS [facility]; Protocol Last Admin: 11/02/18 11:55 Dose: Not Given Nicotine (Nicoderm Cq) 1 patch TD DAILY [facility] Last Admin: 11/02/18 10:27 Dose: 1 patch Risperidone (Risperdal Tab) 1 mg PO BID [facility] Last Admin: 11/02/18 10:28 Dose: 1 mg - Labs Labs: 11/02/18 07:50 11/02/18 07:50 PT 15.3 SECONDS (9.7-12.2) H 10/28/18 13:22 INR 1.4 10/28/18 13:22 APTT 40 SECONDS (21-34) H 10/28/18 13:22 Attending/Attestation - Attestation I have personally seen and examined this patient.: Yes I have fully participated in the care of the patient.: Yes I have reviewed all pertinent clinical information, including history, physical exam and plan: Yes Notes (Text): 11/02/18 17:28 Medical attending: Patient was seen and examined by me. Reviewed the above note by the resident and agree The patient's family member Ehsan was at bedside today and we talked. So far the bone scan returned and was negative Apreciate hematology oncology seeing patient, per notes so far there is no readily available answer to the CT findings on spine area. Patient reported feeling well today and only minimal back pain I discussed with the patient and family member that because of her really poor walking/gait that ideally would like to get an MRI to assess for strokes that were not picked up on CT however patient reports anxiety with MRI even afer we tried giving ativan IV Brian Gilmore
[2018-11-02 08:02] LABS: BASO # 0.1 K/uL (0.0-0.2); EOS # 0.3 K/uL (0.0-0.7); EOS % 3.1 % (0.0-4.0); HEMOGLOBIN 12.2 g/dL (11.0-16.0); LYMPH # 3.7 K/uL (1.0-4.3); LYMPH % 38.6 % (20.0-40.0); MEAN CELL VOLUME 94.9 fL (81.0-99.0); MEAN CORPUSCULAR HEMOGLOBIN 30.8 pg (27.0-31.0); MEAN CORPUSCULAR HGB CONC 32.5 g/dL (33.0-37.0); MONO # 0.9 K/uL (0.0-0.8); NEUT # 4.7 K/uL (1.8-7.0); NEUT % 48.3 % (50.0-75.0); NRBC % 0.1 % (0.0-2.0); RBC 3.96 Mil/uL (3.80-5.20); RED CELL DISTRIBUTION WIDTH 15.9 % (11.5-14.5); WHITE BLOOD COUNT 9.7 K/uL (4.8-10.8)
[2018-11-02] MEDS: (Novolin R) Insulin Human Regular 100 units/ml vial SC SCH ×4 (08:03→21:13)
[2018-11-02 08:18] LABS: BLOOD UREA NITROGEN 16 mg/dL (7-17); CALCIUM 9.5 mg/dl (8.6-10.4); GFR NON-AFRICAN AMERICAN 55
[2018-11-02] MEDS: Divalproex 500 mg DR Tab PO SCH ×2 (10:27→18:22)
--- NOTE | 2018-11-03 00:17 | CP.PCM.PN ---
<[place] Shelby - Last Filed: 11/03/18 00:16> Subjective - Date & Time of Evaluation Date of Evaluation: 11/03/18 Time of Evaluation: 00:16 - Subjective Subjective: [place] Shelby PGY1 Progress Note for Dr. Gilmore Pt was examined at bedside. Pt has no complaints at this time. Pt denies fever, chills, abdominal pain, chest pain, shortness of breath, nausea, vomiting, diarrhea, dysuria. Objective - Vital Signs/Intake and Output Vital Signs (last 24 hours): Temp Pulse Resp BP Pulse Ox 97.7 F 60 20 143/89 94 L 11/03/18 00:00 11/03/18 00:00 11/03/18 00:00 11/03/18 00:00 11/03/18 00:00 Intake and Output: 11/02/18 11/03/18 18:59 06:59 Intake Total 600 Balance 600 - Medications Medications: Current Medications Acetaminophen (Tylenol 325mg Tab) 650 mg PO Q6 PRN PRN Reason: Pain, severe (8-10) Aspirin (Aspirin Chewable) 81 mg PO DAILY [facility] Last Admin: 11/02/18 10:26 Dose: 81 mg Benztropine Mesylate (Cogentin) 1 mg PO BID [facility] Last Admin: 11/02/18 18:22 Dose: 1 mg Dextrose (Dextrose 50% Inj) 0 ml IV STAT PRN; Protocol PRN Reason: Hypoglycemia Protocol Dextrose (Glutose 15) 0 gm PO ONCE PRN; Protocol PRN Reason: Hypoglycemia Protocol Divalproex Sodium (Depakote Dr) 500 mg PO BID [facility] Last Admin: 11/02/18 18:22 Dose: 500 mg Famotidine (Pepcid) 20 mg IVP DAILY [facility] Last Admin: 11/02/18 10:32 Dose: 20 mg Gabapentin (Neurontin) 300 mg PO BID [facility] Last Admin: 11/02/18 18:22 Dose: 300 mg Glucagon (Glucagen Diagnostic Kit) 0 mg IM STAT PRN; Protocol PRN Reason: Hypoglycemia Protocol Heparin Sodium (Porcine) (Heparin) 5,000 units SC Q12 [facility] Last Admin: 11/02/18 21:08 Dose: 5,000 units Hydralazine HCl (Apresoline) 50 mg PO TID PRN PRN Reason: Systolic Blood Pressure >160 Dextrose (Dextrose 5% In Water 1000 Ml) 1,000 mls @ 0 mls/hr IV .Q0M PRN; Protocol PRN Reason: Hypoglycemia Protocol Insulin Human Regular (Novolin R) 0 unit SC ACHS [facility]; Protocol Last Admin: 11/02/18 21:13 Dose: Not Given Nicotine (Nicoderm Cq) 1 patch TD DAILY [facility] Last Admin: 11/02/18 10:27 Dose: 1 patch Risperidone (Risperdal Tab) 1 mg PO BID [facility] Last Admin: 11/02/18 18:22 Dose: 1 mg - Labs Labs: 11/02/18 07:50 11/02/18 07:50 PT 15.3 SECONDS (9.7-12.2) H 10/28/18 13:22 INR 1.4 10/28/18 13:22 APTT 40 SECONDS (21-34) H 10/28/18 13:22 - Additional Findings Additional findings: - Constitutional Appears: Non-toxic, No Acute Distress - Head Exam Head Exam: ATRAUMATIC, NORMAL INSPECTION, NORMOCEPHALIC - Eye Exam Eye Exam: EOMI, Normal appearance Pupil Exam: NORMAL ACCOMODATION - ENT Exam ENT Exam: Mucous Membranes Moist, Normal Exam - Neck Exam Neck Exam: Full ROM, Normal Inspection - Respiratory Exam Respiratory Exam: Clear to Ausculation Bilateral, NORMAL BREATHING PATTERN. absent: Accessory Muscle Use, Rales, Rhonchi, Wheezes, Respiratory Distress, Stridor - Cardiovascular Exam Cardiovascular Exam: REGULAR RHYTHM, +S1, +S2 - GI/Abdominal Exam GI & Abdominal Exam: Soft, Normal Bowel Sounds. absent: Distended, Firm, Guarding, Rigid, Tenderness, Organomegaly, Rebound - Extremities Exam Extremities Exam: Normal Capillary Refill, Normal Inspection. absent: Calf Tenderness, Pedal Edema - Back Exam Back Exam: NORMAL INSPECTION - Neurological Exam Neurological Exam: Alert, Awake, Oriented x3 - Psychiatric Exam Psychiatric exam: Normal Affect, Normal Mood - Skin Skin Exam: Dry, Intact, Normal Color, Warm Assessment and Plan - Assessment and Plan (Free Text) Assessment: 72 year old -Dominican female with PMHx of HTN, HLD, DM, bipolar disorder, parkinson's presenting with b/l hip pain radiating to LE, unintentional weight loss, suspicious lytic lesions throughout spinal vertebral bodies on CT. Plan: Lytic lesions vertebral bodies- suspect Multiple myeloma vs metastatic disease -Chest CT: multilobar infection vs inflammatory process, numerous lytic lesions through vertebral bodies raising suspicion of multiple myeloma - Past lesions seen in previous imaging on past admissions/ED visits -Heme/Onc recs (Dr. Francisco) appreciated -bone scan: no acute findings noted -no evidence for metastatic disease or multiple myeloma -recommend mammogram, continue to observe - CRP 61.9, Ca125 WNL, Ca 19-9 83.8 - IgA 519.4 , IgG WNL, IgM wnl - elevated free kappa light chains, free pedro light chain - f/u further immunology workup per Heme/Onc recs AMS, r/o CVA--resolved -patient is alert and oriented, no facial drooping noted or focal deficits -per daughter, Narcisa Campo, one week ago patient had facial drooping and slurred speech and inability to walk one day and then improvement, the daughter reported that the patient did not want to go to the hospital. -CT head: no acute intracranial pathology noted -f/u MRI brain -patient does not feel comfortable getting MRI d/t claustrophobia r/o respiratory infection--resolved -CXR: suspected early infiltrate Rt base -CT chest: multilobar infection vs inflamattory process, no evidence of PE -blood culture, urine cultures: demonstrate no growth - Meds: -Rocephin 1gm IV BID B/L hip, R shoulder pain-improved -XR hip/pelvis: no acute findings m moderate approx degenerative changes - shoulder xray: no acute changes, b/l degenerative changes - tylenol Q6 PRN for pain Bipolar disorder -continue home meds -risperidone 1mg BID -Depakote 500mg PO BID Parkinson disease - continue home med benztropine 1mg BID DM - not currently taking DM medications - A1C 6.3 - Accuchecks - ISS low dose - hypoglycemia protocol - gabapentin 300mg PO BID for diabetic neuropathy HTN - not currently taking any HTN medications - continue monitoring vitals - continue aspirin 81mg PO daily HLD - not on any statin medication - Lipid panel - low HDL PPx, Diet, Disposition -DVT ppx: scds, Heparin 5000U SC Q12h -GI ppx: pepcid 20 mg IVP -Diet: Diabetic low carb consistent diet, 2g Na -PT/OT on case: recommend MAKENZIE -Code status: full code <Gilmore,Peter H - Last Filed: 11/03/18 11:47> Objective - Vital Signs/Intake and Output Vital Signs (last 24 hours): Temp Pulse Resp BP Pulse Ox 98.5 F 60 20 147/101 H 95 11/03/18 08:00 11/03/18 08:00 11/03/18 08:00 11/03/18 08:00 11/03/18 08:00 Intake and Output: 11/03/18 11/03/18 06:59 18:59 Intake Total 300 Balance 300 - Medications Medications: Current Medications Acetaminophen (Tylenol 325mg Tab) 650 mg PO Q6 PRN PRN Reason: Pain, severe (8-10) Aspirin (Aspirin Chewable) 81 mg PO DAILY [facility] Last Admin: 11/03/18 09:36 Dose: 81 mg Benztropine Mesylate (Cogentin) 1 mg PO BID [facility] Last Admin: 11/03/18 09:37 Dose: 1 mg Dextrose (Dextrose 50% Inj) 0 ml IV STAT PRN; Protocol PRN Reason: Hypoglycemia Protocol Dextrose (Glutose 15) 0 gm PO ONCE PRN; Protocol PRN Reason: Hypoglycemia Protocol Divalproex Sodium (Depakote Dr) 500 mg PO BID [facility] Last Admin: 11/03/18 09:36 Dose: 500 mg Famotidine (Pepcid) 20 mg PO DAILY [facility] Last Admin: 11/03/18 09:36 Dose: 20 mg Gabapentin (Neurontin) 300 mg PO BID [facility] Last Admin: 11/03/18 09:36 Dose: 300 mg Glucagon (Glucagen Diagnostic Kit) 0 mg IM STAT PRN; Protocol PRN Reason: Hypoglycemia Protocol Hydralazine HCl (Apresoline) 50 mg PO TID PRN PRN Reason: Systolic Blood Pressure >160 Insulin Human Regular (Novolin R) 0 unit SC ACHS [facility]; Protocol Last Admin: 11/03/18 11:25 Dose: Not Given Nicotine (Nicoderm Cq) 1 patch TD DAILY [facility] Last Admin: 11/03/18 09:36 Dose: 1 patch Risperidone (Risperdal Tab) 1 mg PO BID [facility] Last Admin: 11/03/18 09:36 Dose: 1 mg - Labs Labs: 11/03/18 07:43 11/03/18 07:43 PT 15.3 SECONDS (9.7-12.2) H 10/28/18 13:22 INR 1.4 10/28/18 13:22 APTT 40 SECONDS (21-34) H 10/28/18 13:22 Attending/Attestation - Attestation I have personally seen and examined this patient.: Yes I have fully participated in the care of the patient.: Yes I have reviewed all pertinent clinical information, including history, physical exam and plan: Yes Notes (Text): 11/03/18 11:44 Medical attending: Patient was seen and examined by me. Agree with the above note by the resident The patient was not in any acute distress. The patient doesn't want the MRI. I think it's kind of a mute point at this time. Again I explained that considering her difficulty ambulating and that it was not like this previously I am concerned for a stroke. We need to have PT/OT see the patient and evaluate Brian Gilmore
[2018-11-03] MEDS: (Novolin R) Insulin Human Regular 100 units/ml vial SC SCH ×4 (07:14→21:25)
[2018-11-03 07:59] LABS: BASO # 0.1 K/uL (0.0-0.2); BASO % 0.8 % (0.0-2.0); EOS # 0.3 K/uL (0.0-0.7); EOS % 2.9 % (0.0-4.0); HEMOGLOBIN 12.1 g/dL (11.0-16.0); LYMPH # 3.2 K/uL (1.0-4.3); LYMPH % 32.8 % (20.0-40.0); MEAN CELL VOLUME 94.9 fL (81.0-99.0); MEAN CORPUSCULAR HEMOGLOBIN 31.1 pg (27.0-31.0); MEAN CORPUSCULAR HGB CONC 32.8 g/dL (33.0-37.0); MEAN PLATELET VOLUME 7.3 fL (7.2-11.7); MONO % 10.6 % (0.0-10.0); NEUT # 5.1 K/uL (1.8-7.0); NEUT % 52.9 % (50.0-75.0); NRBC % 0.1 % (0.0-2.0); RBC 3.89 Mil/uL (3.80-5.20); RED CELL DISTRIBUTION WIDTH 15.7 % (11.5-14.5); WHITE BLOOD COUNT 9.7 K/uL (4.8-10.8)
[2018-11-03 08:19] LABS: BLOOD UREA NITROGEN 19 mg/dL (7-17); CALCIUM 9.6 mg/dl (8.6-10.4); GFR NON-AFRICAN AMERICAN 55
[2018-11-03] MEDS: Divalproex 500 mg DR Tab PO SCH ×2 (09:36→17:59)
[2018-11-04] MEDS: (Novolin R) Insulin Human Regular 100 units/ml vial SC SCH ×3 (07:43→17:00)
--- NOTE | 2018-11-04 07:45 | CP.PCM.PN ---
Subjective - Date & Time of Evaluation Date of Evaluation: 11/04/18 Time of Evaluation: 07:45 - Subjective Subjective: PGY-1 Medicine Progress Note for Dr. Stokes Patient seen and examined at bedside this AM. No acute overnight events reported. Patient has no acute somatic complaints at this time, continues to work with PT. Denies fevers/chills, headaches, dizziness, chest pain, palpitations, abdominal pain, n/v/d/c, numbness/tingling. Objective - Vital Signs/Intake and Output Vital Signs (last 24 hours): Temp Pulse Resp BP Pulse Ox 97.7 F 65 20 147/76 95 11/03/18 23:32 11/03/18 23:32 11/03/18 23:32 11/03/18 23:32 11/03/18 23:32 Intake and Output: 11/04/18 11/04/18 06:59 18:59 Intake Total 600 Balance 600 - Medications Medications: Current Medications Acetaminophen (Tylenol 325mg Tab) 650 mg PO Q6 PRN PRN Reason: Pain, severe (8-10) Aspirin (Aspirin Chewable) 81 mg PO DAILY [facility] Last Admin: 11/03/18 09:36 Dose: 81 mg Benztropine Mesylate (Cogentin) 1 mg PO BID [facility] Last Admin: 11/03/18 17:59 Dose: 1 mg Dextrose (Dextrose 50% Inj) 0 ml IV STAT PRN; Protocol PRN Reason: Hypoglycemia Protocol Dextrose (Glutose 15) 0 gm PO ONCE PRN; Protocol PRN Reason: Hypoglycemia Protocol Divalproex Sodium (Depakote Dr) 500 mg PO BID [facility] Last Admin: 11/03/18 17:59 Dose: 500 mg Famotidine (Pepcid) 20 mg PO DAILY [facility] Last Admin: 11/03/18 09:36 Dose: 20 mg Gabapentin (Neurontin) 300 mg PO BID [facility] Last Admin: 11/03/18 17:59 Dose: 300 mg Glucagon (Glucagen Diagnostic Kit) 0 mg IM STAT PRN; Protocol PRN Reason: Hypoglycemia Protocol Hydralazine HCl (Apresoline) 50 mg PO TID PRN PRN Reason: Systolic Blood Pressure >160 Insulin Human Regular (Novolin R) 0 unit SC [facility]; Protocol Last Admin: 11/04/18 07:43 Dose: Not Given Nicotine (Nicoderm Cq) 1 patch TD DAILY [facility] Last Admin: 11/03/18 09:36 Dose: 1 patch Risperidone (Risperdal Tab) 1 mg PO BID [facility] Last Admin: 11/03/18 17:59 Dose: 1 mg - Labs Labs: 11/03/18 07:43 11/03/18 07:43 PT 15.3 SECONDS (9.7-12.2) H 10/28/18 13:22 INR 1.4 10/28/18 13:22 APTT 40 SECONDS (21-34) H 10/28/18 13:22 - Constitutional Appears: Non-toxic, No Acute Distress - Head Exam Head Exam: ATRAUMATIC, NORMAL INSPECTION, NORMOCEPHALIC - Eye Exam Eye Exam: EOMI, Normal appearance, PERRL Pupil Exam: NORMAL ACCOMODATION - ENT Exam ENT Exam: Mucous Membranes Moist, Normal Exam - Neck Exam Neck Exam: Full ROM, Normal Inspection - Respiratory Exam Respiratory Exam: Clear to Ausculation Bilateral, NORMAL BREATHING PATTERN. absent: Accessory Muscle Use, Rales, Rhonchi, Wheezes, Respiratory Distress, Stridor - Cardiovascular Exam Cardiovascular Exam: REGULAR RHYTHM, +S1, +S2 - GI/Abdominal Exam GI & Abdominal Exam: Soft, Normal Bowel Sounds. absent: Distended, Firm, Guarding, Rigid, Tenderness, Organomegaly, Rebound - Extremities Exam Extremities Exam: Full ROM, Normal Capillary Refill, Normal Inspection. absent: Calf Tenderness, Pedal Edema - Back Exam Back Exam: NORMAL INSPECTION. absent: CVA tenderness (L), CVA tenderness (R) - Neurological Exam Neurological Exam: Alert, Awake, CN II-XII Intact, Oriented x3 - Psychiatric Exam Psychiatric exam: Normal Affect, Normal Mood - Skin Skin Exam: Dry, Intact, Normal Color, Warm Assessment and Plan - Assessment and Plan (Free Text) Assessment: 72 year old -[place] female with PMHx of HTN, HLD, DM, bipolar disorder, parkinson's presenting with b/l hip pain radiating to LE, unintentional weight l oss, suspicious lytic lesions throughout spinal vertebral bodies on CT. Plan: Lytic lesions vertebral bodies- suspected multiple myeloma vs metastatic disease -Chest CT: multilobar infection vs inflammatory process, numerous lytic lesions through vertebral bodies raising suspicion of multiple myeloma - Past lesions seen in previous imaging on past admissions/ED visits -Heme/Onc recs (Dr. Francisco) appreciated -bone scan: no acute findings noted -no evidence for metastatic disease or multiple myeloma -recommend outpatient mammogram, follow-up -medically cleared for d/c - CRP 61.9, Ca125 WNL, Ca 19-9 83.8 - IgA 519.4 , IgG WNL, IgM wnl - normal free kappa/lambda ratio AMS, r/o CVA--resolved -patient is alert and oriented, no facial drooping noted or focal deficits -per daughter, Narcisa Campo, one week ago patient had facial drooping and slurred speech and inability to walk one day and then improvement, the daughter reported that the patient did not want to go to the hospital. -CT head: no acute intracranial pathology noted -f/u MRI brain -patient does not feel comfortable getting MRI d/t claustrophobia r/o respiratory infection--resolved -CXR: suspected early infiltrate Rt base -CT chest: multilobar infection vs inflamattory process, no evidence of PE -blood culture, urine cultures: demonstrate no growth - Meds: -rocephin d/c'd B/L hip, R shoulder pain-improved -XR hip/pelvis: no acute findings m moderate approx degenerative changes - shoulder xray: no acute changes, b/l degenerative changes - tylenol Q6 PRN for pain Bipolar disorder -continue home meds -risperidone 1mg BID -Depakote 500mg PO BID Parkinson disease - continue home med benztropine 1mg BID DM - not currently taking DM medications - A1C 6.3 - Accuchecks - ISS low dose - hypoglycemia protocol - gabapentin 300mg PO BID for diabetic neuropathy HTN - not currently taking any HTN medications - continue monitoring vitals - continue aspirin 81mg PO daily HLD - not on any statin medication - Lipid panel - low HDL PPx, Diet, Disposition -DVT ppx: scds, Heparin 5000U SC Q12h -GI ppx: pepcid 20 mg IVP -Diet: Diabetic low carb consistent diet, 2g Na -PT/OT on case -Code status: full code Case discussed with Dr. Divya Green DO, PGY-1
[2018-11-04 09:05] VITALS: PULSE 72
[2018-11-04] MEDS: Divalproex 500 mg DR Tab PO SCH ×2 (10:12→18:00)
[2018-11-04 11:00] LABS: ALBUMIN 19.9 %; ALPHA-1 GLOBULIN 5.6 %
[2018-11-04 11:16] LABS: BASO # 0.1 K/uL (0.0-0.2); BASO % 0.9 % (0.0-2.0); EOS # 0.3 K/uL (0.0-0.7); EOS % 3.3 % (0.0-4.0); HEMOGLOBIN 12.5 g/dL (11.0-16.0); LYMPH % 38.7 % (20.0-40.0); MEAN CELL VOLUME 94.8 fL (81.0-99.0); MEAN CORPUSCULAR HEMOGLOBIN 30.8 pg (27.0-31.0); MEAN CORPUSCULAR HGB CONC 32.5 g/dL (33.0-37.0); MEAN PLATELET VOLUME 7.3 fL (7.2-11.7); MONO # 0.8 K/uL (0.0-0.8); MONO % 10.3 % (0.0-10.0); NEUT # 3.6 K/uL (1.8-7.0); NEUT % 46.8 % (50.0-75.0); RBC 4.04 Mil/uL (3.80-5.20); RED CELL DISTRIBUTION WIDTH 15.9 % (11.5-14.5); WHITE BLOOD COUNT 7.7 K/uL (4.8-10.8)
[2018-11-04 11:28] LABS: ALBUMIN 3.8 g/dL (3.5-5.0); ALT/SGPT 18 U/L (9-52); AST/SGOT 22 U/L (14-36); BLOOD UREA NITROGEN 22 mg/dL (7-17); CALCIUM 9.8 mg/dl (8.6-10.4); GFR NON-AFRICAN AMERICAN > 60
--- NOTE | 2018-11-04 11:39 | CP.PCM.DIS ---
<Lenny Green - Last Filed: 11/06/18 07:32> Provider - Provider Date of Admission: 10/28/18 16:51 Attending physician: Nancy Stokes MD Consults: 10/28/18 19:30 Hematology Oncology Consult Routine Comment: Consulting Provider: Marie Hdz Consulting Physician: Marie Hdz Reason for Consult: Lytic lesions vertebral bodies,r/o MM vs mets Time Spent in preparation of Discharge (in minutes): 40 Hospital Course - Lab Results Lab Results: Micro Results 10/28/18 13:30 Blood Blood Culture - Final NO GROWTH AFTER 5 DAYS 10/28/18 13:00 Blood Blood Culture - Final NO GROWTH AFTER 5 DAYS 10/28/18 13:00 Blood Gram Stain - Final TEST NOT PERFORMED 10/28/18 17:29 Urine Urine Culture - Final No Growth (<1,000 CFU/ML) Most Recent Lab Values WBC 7.7 K/uL (4.8-10.8) 11/04/18 11:07 RBC 4.04 Mil/uL (3.80-5.20) 11/04/18 11:07 Hgb 12.5 g/dL (11.0-16.0) 11/04/18 11:07 Hct 38.3 % (34.0-47.0) 11/04/18 11:07 MCV 94.8 fL (81.0-99.0) 11/04/18 11:07 MCH 30.8 pg (27.0-31.0) 11/04/18 11:07 MCHC 32.5 g/dL (33.0-37.0) L 11/04/18 11:07 RDW 15.9 % (11.5-14.5) H 11/04/18 11:07 Plt Count 424 K/uL (130-400) H 11/04/18 11:07 MPV 7.3 fL (7.2-11.7) 11/04/18 11:07 Neut % (Auto) 46.8 % (50.0-75.0) L 11/04/18 11:07 Lymph % (Auto) 38.7 % (20.0-40.0) 11/04/18 11:07 [place] % (Auto) 10.3 % (0.0-10.0) H 11/04/18 11:07 Eos % (Auto) 3.3 % (0.0-4.0) 11/04/18 11:07 Baso % (Auto) 0.9 % (0.0-2.0) 11/04/18 11:07 Neut # (Auto) 3.6 K/uL (1.8-7.0) 11/04/18 11:07 Lymph # (Auto) 3.0 K/uL (1.0-4.3) 11/04/18 11:07 [place] # (Auto) 0.8 K/uL (0.0-0.8) 11/04/18 11:07 Eos # (Auto) 0.3 K/uL (0.0-0.7) 11/04/18 11:07 Baso # (Auto) 0.1 K/uL (0.0-0.2) 11/04/18 11:07 PT 15.3 SECONDS (9.7-12.2) H 10/28/18 13:22 INR 1.4 10/28/18 13:22 APTT 40 SECONDS (21-34) H 10/28/18 13:22 D-Dimer, Quantitative 758 ng/mlDDU (0-243) H 10/28/18 13:22 Sodium 141 mmol/L (132-148) 11/03/18 07:43 Potassium 4.5 mmol/L (3.6-5.2) 11/03/18 07:43 Chloride 102 mmol/L (98-107) 11/03/18 07:43 Carbon Dioxide 32 mmol/L (22-30) H 11/03/18 07:43 Anion Gap 12 (10-20) 11/03/18 07:43 BUN 19 mg/dL (7-17) H 11/03/18 07:43 Creatinine 1.0 mg/dL (0.7-1.2) 11/03/18 07:43 Est GFR ( Amer) > 60 11/03/18 07:43 Est GFR (Non-Af Amer) 55 11/03/18 07:43 POC Glucose (mg/dL) 88 mg/dL (65-110) 11/04/18 11:11 Random Glucose 113 mg/dL (65-105) H 11/03/18 07:43 Hemoglobin A1c 6.3 % (4.2-6.5) 10/29/18 06:30 Calcium 9.6 mg/dl (8.6-10.4) 11/03/18 07:43 Total Bilirubin 0.3 mg/dL (0.2-1.3) 10/31/18 06:58 AST 12 U/L (14-36) L 10/31/18 06:58 ALT 12 U/L (9-52) 10/31/18 06:58 Alkaline Phosphatase 58 U/L (38-126) 10/31/18 06:58 Lactate Dehydrogenase 436 U/L (313-618) 10/31/18 06:58 Total Creatine Kinase 49 U/L (30-135) 10/28/18 13:22 CK-MB (Mass) 1.24 ng/mL (0.0-3.38) 10/28/18 13:22 Troponin I 0.0170 ng/mL (0.00-0.120) 10/28/18 13:22 C-Reactive Protein 61.90 mg/L (0.0-9.9) H 10/28/18 19:33 Total Protein 6.8 g/dL (6.3-8.3) 10/31/18 06:58 Total Protein (PEP) 6.5 g/dL (6.1-8.1) 10/28/18 19:33 Albumin 3.4 g/dL (3.5-5.0) L 10/31/18 06:58 Albumin (PEP) 2.8 g/dL (3.8-4.8) L 10/28/18 19:33 Globulin 3.4 gm/dL (2.2-3.9) 10/31/18 06:58 Albumin/Globulin Ratio 1.0 (1.0-2.1) 10/31/18 06:58 Nteqg-0-Yupululkn 5.6 % 10/29/18 18:15 Uqlam-7-Elvhwxrdg 26.9 % 10/29/18 18:15 Beta Globulins 21.7 % 10/29/18 18:15 Bdoy-4-Ncpsbfku 0.3 g/dL (0.4-0.6) L 10/28/18 19:33 Jdyh-9-Wjbaefxi 0.6 g/dL (0.2-0.5) H 10/28/18 19:33 Ltuq-2-Geeskgsklkcpf 3.26 mg/L (<or= 2.51) H 10/31/18 11:13 Gamma Globulins 25.8 % 10/29/18 18:15 Abnorm Protein Band 1 TEST NOT PERFORMED 10/28/18 19:33 Abnorm Protein Band 2 TEST NOT PERFORMED 10/28/18 19:33 Abnorm Protein Band 3 TEST NOT PERFORMED 10/28/18 19:33 Triglycerides 138 mg/dL (0-149) D 10/29/18 06:30 Cholesterol 149 mg/dL (0-199) 10/29/18 06:30 LDL Cholesterol Direct 94 mg/dL (0-129) 10/29/18 06:30 HDL Cholesterol 24 mg/dL (30-70) L 10/29/18 06:30 CA 19-9 Antigen 83.8 U/mL (0-37) H 10/28/18 19:33 CA 125 Antigen 21.0 U/mL (0-35) 10/28/18 19:33 Urine Color Yellow (YELLOW) 10/28/18 16:45 Urine Clarity Clear (Clear) 10/28/18 16:45 Urine pH 5.0 (5.0-8.0) 10/28/18 16:45 Ur Specific [place] 1.028 (1.003-1.030) 10/28/18 16:45 Urine Protein Negative mg/dL (NEGATIVE) 10/28/18 16:45 Urine Glucose (UA) Normal mg/dL (Normal) 10/28/18 16:45 Urine Ketones Negative mg/dL (NEGATIVE) 10/28/18 16:45 Urine Blood Negative (NEGATIVE) 10/28/18 16:45 Urine Nitrate Negative (NEGATIVE) 10/28/18 16:45 Urine Bilirubin Negative (NEGATIVE) 10/28/18 16:45 Urine Urobilinogen 2.0 mg/dL (0.2-1.0) H 10/28/18 16:45 Ur Leukocyte Esterase Neg [place]/uL (Negative) 10/28/18 16:45 Urine WBC (Auto) 1 /hpf (0-5) 10/28/18 16:45 Urine RBC (Auto) 3 /hpf (0-3) 10/28/18 16:45 Urine Bacteria Rare (<OCC) 10/28/18 16:45 Ur Creatinine 24 Hour 0.29 g/24 h (0.50-2.15) L 10/29/18 18:15 Ur Total Protein 24 Hr 84 mg/24 h (<150) 10/29/18 18:15 Protein/Creat Ratio 24h 286 mg/g creat (< OR = 114) H 10/29/18 18:15 Urine Albumin (PEP) 19.9 % 10/29/18 18:15 U Free [place] Light Ch 53.40 mg/L (1.35-24.19) H 10/28/18 19:33 U Free Lambda Light Ch 12.50 mg/L (0.24-6.66) H 10/28/18 19:33 U Free [place]/Lambda 4.27 (2.04-10.37) 10/28/18 19:33 Ur Protein Fractions See note 10/29/18 18:15 IgG 1128.1 mg/dL (700.0-1600.0) 10/31/18 09:49 IgA 519.4 mg/dL (70.0-400.0) H 10/31/18 09:49 IgM 98.0 mg/dL (40.0-230.0) 10/31/18 09:49 MJ & SPEP Interp See note 10/28/18 19:33 Serum Immunofixation Not detected (Not Detected) 10/31/18 11:42 Urine Immunofixation Not detected (Not Detected) 10/31/18 13:24 Free [place] Light Chains 59.9 mg/L (3.3-19.4) H 10/28/18 19:33 Free Lambda Light Chain 54.4 mg/L (5.7-26.3) H 10/28/18 19:33 Free [place]/Lambda Ratio 1.10 (0.26-1.65) 10/28/18 19:33 - Hospital Course Hospital Course: HPI: Patient is a 72 year old Female with past medical history of Bipolar disorder, type 2 diabetes mellitus, hypertension, hyperlipidemia, Parkison's Disease that came to the ED for bilateral hip pain radiating to the lower extremity as well as right shoulder pain. Patient states this pain started about 4 years ago, but have noticed weakness in her legs and increasing pain in the past 7 weeks, when patient started to become bed bound, having very little strength to get up from bed. Patient states she cannot walk, and uses a walker most of the time. Reports multiple falls, recent one happening 3 weeks ago and another one happening even more recently, but cannot state the exact date. Patient describe shoulder pain as achy, and hip pain as excruciating pain, being the worst when patient is lying down on her back. Patient takes Tylenol and Aleve,with some relief for pain and has taken muscle relaxant in the past, but has only made her weaker. Patient admits to some fever and chills, as well as chest tightness but no shortness of breath. Admits to some dizziness at times, often related to hearing difficulty. Patient denies coughing, headache, nausea, abdominal pain vomiting, diarrhea, constipation, rash. Patient admits to unintentional weight loss of about 40-50 pounds in the past 5 months, as well as decrease in appetite. denies any urinary symptoms or night sweats. During course of admission: Chest, Hip/Pelvis, shoulder x-ray all demonstrated no acute findings. Chest CT demonstrated multilobar infection vs inflammatory process, numerous lytic lesions through vertebral bodies raising suspicion of multiple myeloma. Patient was placed on rocephin 1 gm IV BID, and Heme/Onc (Dr. Francisco) was consulted for suspicious lytic lesions. Per recommendations, full bone scan was performed which showed no acute findings. Immunology workup was performed per further Heme/Onc recommendations, with no evidence for metastatic disease or multiple myeloma. Patient was recommended to follow-up outpatient for mammogram testing. Of note, patient's daughter (Narcisa Campo) endorsed that one week prior to admission, patient had facial drooping/slurred speech and inability to walk for one day with subsequent improvement. The daughter reported that the patient did not want to go to the hospital. CT head performed during hospital course showed no acute intracranial pathology. MRI brain was ordered but patient refused. No new facial drooping/slurred speech or acute focal changes were noted. Patient remained afebrile during course of admission with no leukocytosis noted. Blood cultures and urine cultures demonstrated NO active growth. Patient is medically stable for discharge to home, as per Dr. Stokes. She is instructed to continue all home medications as prescribed. Patient has rolling walker and is instructed to continue using it for ambulation at home as needed. Patient is instructed to follow up with Heme/Onc (Dr. Francisco) within 1-2 week of discharge for further monitoring and mamogram follow-up. Per recommendations, she is instructed to schedule mammogram to be done outpatient. Contact information has been provided; please call to schedule appointment. [facility] [place] [phone] - Date & Time of H&P Date of H&P: 11/04/18 Time of H&P: 11:21 Discharge Exam - Head Exam Head Exam: ATRAUMATIC, NORMAL INSPECTION, NORMOCEPHALIC - Eye Exam Eye Exam: EOMI, Normal appearance Pupil Exam: NORMAL ACCOMODATION - ENT Exam ENT Exam: Mucous Membranes Moist, Normal Exam - Neck Exam Neck exam: Full Rom, Normal Inspection - Respiratory Exam Respiratory Exam: Clear to PA & Lateral, NORMAL BREATHING PATTERN, UNREMARKABLE. absent: Accessory Muscle Use, Rales, Rhonchi, Wheezes, Respiratory Distress, Stridor - Cardiovascular Exam Cardiovascular Exam: REGULAR RHYTHM, +S1, +S2 - GI/Abdominal Exam GI & Abdominal Exam: Normal Bowel Sounds, Soft, Unremarkable. absent: Distended, Firm, Guarding, Hernia, Rebound, Rigid, Tenderness - Extremities Exam Extremities exam: normal capillary refill, normal inspection, pedal pulses present - Back Exam Back exam: NORMAL INSPECTION - Neurological Exam Neurological exam: Alert, Oriented x3 - Psychiatric Exam Psychiatric exam: Normal Affect, Normal Mood - Skin Skin Exam: Dry, Intact, Normal Color, Warm Discharge Plan - Discharge Medications Prescriptions: Aspirin 81 mg PO DAILY #30 tab.chew Gabapentin 300 mg PO BID #60 capsule Nicotine 14 mg/24 hr [Nicoderm CQ] 1 patch TD DAILY #30 patch - Follow Up Plan Condition: GOOD Disposition: HOME/ ROUTINE Instructions: Pneumonia, Adult (DC), Acute Pain, Adult (DC), Multiple Myeloma (DC) Additional Instructions: Patient is medically stable for discharge to home, as per Dr. Stokes. She is instructed to continue all home medications as prescribed. Patient has rolling walker and is instructed to continue using it for ambulation at home as needed. Patient is instructed to follow up with Heme/Onc (Dr. Francisco) within 1-2 week of discharge for further monitoring and mamogram follow-up. Per recommendations, she is instructed to schedule mammogram to be done outpatient. Contact information has been provided; please call to schedule appointment. [facility] at [address] [address] Referrals: Camilo Francisco MD [Staff Provider] - Sanjay Hilton MD [Staff Provider] - <Nancy Stokes - Last Filed: 11/07/18 16:12> Provider - Provider Date of Admission: 10/28/18 16:51 Attending physician: Nancy Stokes MD Consults: 10/28/18 19:30 Hematology Oncology Consult Routine Comment: Consulting Provider: Marie Hdz Consulting Physician: Marie Hdz Reason for Consult: Lytic lesions vertebral bodies,r/o MM vs mets Hospital Course - Lab Results Lab Results: Micro Results 10/28/18 13:30 Blood Blood Culture - Final NO GROWTH AFTER 5 DAYS 10/28/18 13:00 Blood Blood Culture - Final NO GROWTH AFTER 5 DAYS 10/28/18 13:00 Blood Gram Stain - Final TEST NOT PERFORMED 10/28/18 17:29 Urine Urine Culture - Final No Growth (<1,000 CFU/ML) Most Recent Lab Values WBC 7.7 K/uL (4.8-10.8) 11/04/18 11:07 RBC 4.04 Mil/uL (3.80-5.20) 11/04/18 11:07 Hgb 12.5 g/dL (11.0-16.0) 11/04/18 11:07 Hct 38.3 % (34.0-47.0) 11/04/18 11:07 MCV 94.8 fL (81.0-99.0) 11/04/18 11:07 MCH 30.8 pg (27.0-31.0) 11/04/18 11:07 MCHC 32.5 g/dL (33.0-37.0) L 11/04/18 11:07 RDW 15.9 % (11.5-14.5) H 11/04/18 11:07 Plt Count 424 K/uL (130-400) H 11/04/18 11:07 MPV 7.3 fL (7.2-11.7) 11/04/18 11:07 Neut % (Auto) 46.8 % (50.0-75.0) L 11/04/18 11:07 Lymph % (Auto) 38.7 % (20.0-40.0) 11/04/18 11:07 [place] % (Auto) 10.3 % (0.0-10.0) H 11/04/18 11:07 Eos % (Auto) 3.3 % (0.0-4.0) 11/04/18 11:07 Baso % (Auto) 0.9 % (0.0-2.0) 11/04/18 11:07 Neut # (Auto) 3.6 K/uL (1.8-7.0) 11/04/18 11:07 Lymph # (Auto) 3.0 K/uL (1.0-4.3) 11/04/18 11:07 [place] # (Auto) 0.8 K/uL (0.0-0.8) 11/04/18 11:07 Eos # (Auto) 0.3 K/uL (0.0-0.7) 11/04/18 11:07 Baso # (Auto) 0.1 K/uL (0.0-0.2) 11/04/18 11:07 PT 15.3 SECONDS (9.7-12.2) H 10/28/18 13:22 INR 1.4 10/28/18 13:22 APTT 40 SECONDS (21-34) H 10/28/18 13:22 D-Dimer, Quantitative 758 ng/mlDDU (0-243) H 10/28/18 13:22 Sodium 139 mmol/L (132-148) 11/04/18 11:07 Potassium 4.6 mmol/L (3.6-5.2) 11/04/18 11:07 Chloride 101 mmol/L (98-107) 11/04/18 11:07 Carbon Dioxide 33 mmol/L (22-30) H 11/04/18 11:07 Anion Gap 9 (10-20) L 11/04/18 11:07 BUN 22 mg/dL (7-17) H 11/04/18 11:07 Creatinine 0.9 mg/dL (0.7-1.2) 11/04/18 11:07 Est GFR ( Amer) > 60 11/04/18 11:07 Est GFR (Non-Af Amer) > 60 11/04/18 11:07 POC Glucose (mg/dL) 177 mg/dL (65-110) H 11/04/18 16:58 Random Glucose 98 mg/dL (65-105) 11/04/18 11:07 Hemoglobin A1c 6.3 % (4.2-6.5) 10/29/18 06:30 Calcium 9.8 mg/dl (8.6-10.4) 11/04/18 11:07 Phosphorus 5.0 mg/dL (2.5-4.5) H 11/04/18 11:07 Magnesium 1.9 mg/dL (1.6-2.3) 11/04/18 11:07 Total Bilirubin 0.4 mg/dL (0.2-1.3) 11/04/18 11:07 AST 22 U/L (14-36) 11/04/18 11:07 ALT 18 U/L (9-52) 11/04/18 11:07 Alkaline Phosphatase 56 U/L (38-126) 11/04/18 11:07 Lactate Dehydrogenase 436 U/L (313-618) 10/31/18 06:58 Total Creatine Kinase 49 U/L (30-135) 10/28/18 13:22 CK-MB (Mass) 1.24 ng/mL (0.0-3.38) 10/28/18 13:22 Troponin I 0.0170 ng/mL (0.00-0.120) 10/28/18 13:22 C-Reactive Protein 61.90 mg/L (0.0-9.9) H 10/28/18 19:33 Total Protein 7.5 g/dL (6.3-8.3) 11/04/18 11:07 Total Protein (PEP) 6.5 g/dL (6.1-8.1) 10/28/18 19:33 Albumin 3.8 g/dL (3.5-5.0) 11/04/18 11:07 Albumin (PEP) 2.8 g/dL (3.8-4.8) L 10/28/18 19:33 Globulin 3.7 gm/dL (2.2-3.9) 11/04/18 11:07 Albumin/Globulin Ratio 1.0 (1.0-2.1) 11/04/18 11:07 Jcfsw-1-Ffgqydchn 5.6 % 10/29/18 18:15 Ucwgu-0-Qavbnelhk 26.9 % 10/29/18 18:15 Beta Globulins 21.7 % 10/29/18 18:15 Bolo-5-Esjawdqm 0.3 g/dL (0.4-0.6) L 10/28/18 19:33 Dvcy-2-Lpmtqneh 0.6 g/dL (0.2-0.5) H 10/28/18 19:33 Nlyb-8-Trkzsvwgcuzdx 3.26 mg/L (<or= 2.51) H 10/31/18 11:13 Gamma Globulins 25.8 % 10/29/18 18:15 Abnorm Protein Band 1 TEST NOT PERFORMED 10/28/18 19:33 Abnorm Protein Band 2 TEST NOT PERFORMED 10/28/18 19:33 Abnorm Protein Band 3 TEST NOT PERFORMED 10/28/18 19:33 Triglycerides 138 mg/dL (0-149) D 10/29/18 06:30 Cholesterol 149 mg/dL (0-199) 10/29/18 06:30 LDL Cholesterol Direct 94 mg/dL (0-129) 10/29/18 06:30 HDL Cholesterol 24 mg/dL (30-70) L 10/29/18 06:30 CA 19-9 Antigen 83.8 U/mL (0-37) H 10/28/18 19:33 CA 125 Antigen 21.0 U/mL (0-35) 10/28/18 19:33 Urine Color Yellow (YELLOW) 10/28/18 16:45 Urine Clarity Clear (Clear) 10/28/18 16:45 Urine pH 5.0 (5.0-8.0) 10/28/18 16:45 Ur Specific [place] 1.028 (1.003-1.030) 10/28/18 16:45 Urine Protein Negative mg/dL (NEGATIVE) 10/28/18 16:45 Urine Glucose (UA) Normal mg/dL (Normal) 10/28/18 16:45 Urine Ketones Negative mg/dL (NEGATIVE) 10/28/18 16:45 Urine Blood Negative (NEGATIVE) 10/28/18 16:45 Urine Nitrate Negative (NEGATIVE) 10/28/18 16:45 Urine Bilirubin Negative (NEGATIVE) 10/28/18 16:45 Urine Urobilinogen 2.0 mg/dL (0.2-1.0) H 10/28/18 16:45 Ur Leukocyte Esterase Neg [place]/uL (Negative) 10/28/18 16:45 Urine WBC (Auto) 1 /hpf (0-5) 10/28/18 16:45 Urine RBC (Auto) 3 /hpf (0-3) 10/28/18 16:45 Urine Bacteria Rare (<OCC) 10/28/18 16:45 Ur Creatinine 24 Hour 0.29 g/24 h (0.50-2.15) L 10/29/18 18:15 Ur Total Protein 24 Hr 84 mg/24 h (<150) 10/29/18 18:15 Protein/Creat Ratio 24h 286 mg/g creat (< OR = 114) H 10/29/18 18:15 Urine Albumin (PEP) 19.9 % 10/29/18 18:15 U Free [place] Light Ch 53.40 mg/L (1.35-24.19) H 10/28/18 19:33 U Free Lambda Light Ch 12.50 mg/L (0.24-6.66) H 10/28/18 19:33 U Free [place]/Lambda 4.27 (2.04-10.37) 10/28/18 19:33 Ur Protein Fractions See note 10/29/18 18:15 IgG 1158 mg/dL (694-1618) 10/31/18 11:13 IgA 548 mg/dL (81-463) H 10/31/18 11:13 IgM 102 mg/dL (48-271) 10/31/18 11:13 MJ & SPEP Interp See note 10/28/18 19:33 Serum Immunofixation Not detected (Not Detected) 10/31/18 11:42 Urine Immunofixation Not detected (Not Detected) 10/31/18 13:24 Free [place] Light Chains 59.9 mg/L (3.3-19.4) H 10/28/18 19:33 Free Lambda Light Chain 54.4 mg/L (5.7-26.3) H 10/28/18 19:33 Free [place]/Lambda Ratio 1.10 (0.26-1.65) 10/28/18 19:33 Attending/Attestation - Attestation I have personally seen and examined this patient.: Yes I have fully participated in the care of the patient.: Yes I have reviewed all pertinent clinical information, including history, physical exam and plan: Yes Notes (Text): Discharge diagnosis 1.Lytic lesions vertebral bodies- suspected multiple myeloma vs metastatic disease 2.DM type 2 3.Hypertension Assessment and the plan discussed with the resident and I agree with the discharge plan Patient will follow oncologist Dr Francisco and her primary care physician
[2018-11-04 16:22] VITALS: BP 127/79; TEMP 98.7; O2SAT 95
[2018-11-04] MEDS ORDERED: Influenza Vaccine 60 MCG/0.5 ML SYR (3 yr & up) IM ONE (20:17)
[2018-11-04] MEDS ORDERED: Pneumococcal 23-Valent Vaccine IM ONE (20:17)
== END 2018-11-04 21:04 | disposition home or self-care (01) ==
LOC: C.ER 09:34 → C.3T 16:51
PROVIDERS: ADMIT Internal Medicine; ATTEND Internal Medicine
DX: M89.8X8 Other specified disorders of bone, other site (principal); J18.9 Pneumonia, unspecified organism; E11.9 Type 2 diabetes mellitus without complications; E78.00 Pure hypercholesterolemia, unspecified; E78.5 Hyperlipidemia, unspecified; M25.551 Pain in right hip; M25.552 Pain in left hip; F17.200 Nicotine dependence, unspecified, uncomplicated; F31.9 Bipolar disorder, unspecified; F41.9 Anxiety disorder, unspecified; G20 Parkinson's disease; I10 Essential (primary) hypertension; J43.9 Emphysema, unspecified; R29.810 Facial weakness; R29.6 Repeated falls

== ENCOUNTER 2018-11-14 08:12 | Inpatient (IN) | payer OTHER ==
--- NOTE | 2018-11-14 08:44 | C.PDOC ---
History Of Present Illness 73 year old female with ahistory of bipolar disorder, NIDDM, HTN, HLD, Parkinson's Disease, presents to the emergency department with new onset altered mental status, difficulty walking, and urinary incontinence since last night. As per patient's family, patient normally ambulates using a walker, but is now too weak to stand up. Family reports that the patient has been unable to get out of bed, and wet the bed. Patient's family denies fever, nausea, and vomiting. Patient son states that her baseline is alert and oriented x3, "but sometimes her bipolar disorder gets worse at this time of year". Patient reported to have chronic back pain and joint pain which has been unchanged since prior admission, from which she was discharged on 10/28/18. LIMITED DUE TO POOR HISTORIAN; HX PER FAMILY NEW ONSET AMS, DIFF WALKING, URINARY INCONT SINCE LAST NIGHT. NORMALLY WALK W WALKER, NOW TOO WEAK TO STAND. PT WET BED, UNABLE TO GET OUT OF BED. NO FEVER, NV. PER SON, PT BASELINE = AO3 "BUT SOMETIMES HER BIPOLAR GETS WORSE @ THIS TIME OF YEAR". PT W CHRONIC BACK/JOINT PAIN, UNCH SINCE PRIOR ADMISSION s/p dc 10/28 past medical history of Bipolar disorder, type 2 diabetes mellitus, hypertension, hyperlipidemia, Parkison's Disease SP LOWE FOR CHRONIC JOINT PAIN, WEAKNESS, WT LOSS. NEG LOWE FOR MET DISEASE/MULT MYELOMA, CVA. EXAM NONTOXIC HEENT ATRAUM LUNGS CV NEURO NO GROSS FOCAL DEF PSYCH CALM COOPERATIVE NO ACUTE PSYCHOSIS, INTOX REMAINDER NEG MDM NO PRIOR CARDIAC ECHO ON RECORD, UNK EF STATUS. PT HEMODYN STABLE, NONTOXIC. DEFER IVF PER SEPSIS PROTOCOL. FAMILY STATE PT W PROGRESSIVE DIFF WALKING X SEV MONTHS, REQUESTING EVAL POSSIBLE MCC PLACEMENT Chest CT demonstrated multilobar infection vs inflammatory process, numerous lytic lesions through vertebral bodies raising suspicion of multiple myeloma. P er recommendations, full bone scan was performed which showed no acute findings. Immunology workup was performed per further Heme/Onc recommendations, with no evidence for metastatic disease or multiple myeloma. CT head performed during hospital course showed no acute intracranial pathology. MRI brain was ordered but patient refused. No new facial drooping/slurred speech or acute focal changes were noted. Blood cultures and urine cultures demonstrated NO active growth. Time Seen by Provider: 11/14/18 08:38 Chief Complaint (Nursing): Flu-like Symptoms History Per: Family History/Exam Limitations: clinical condition Onset/Duration Of Symptoms: Hrs Current Symptoms Are (Timing): Still Present Reports Recently: Hospitalized Past Medical History Reviewed: Historical Data, Nursing Documentation, Vital Signs Vital Signs: Last Vital Signs Temp 100.2 F H 11/14/18 08:19 Pulse 84 11/14/18 08:19 Resp 20 11/14/18 08:19 BP 111/71 11/14/18 08:19 Pulse Ox 95 11/14/18 08:19 - Medical History PMH: Anxiety, Arthritis, Bipolar Disorder, Depression, Diabetes, Emphysema, HTN, Hypercholesterolemia, Parkinson's Disease Denies: Chronic Kidney Disease Surgical History: No Surg Hx Family History: States: No Known Family Hx - Social History Hx Tobacco Use: Yes Hx Alcohol Use: No Hx Substance Use: No - Immunization History Hx Tetanus Toxoid Vaccination: No Hx Influenza Vaccination: No Hx Pneumococcal Vaccination: No Review Of Systems Review Of Systems: ROS cannot be obtained secondary to pt's inabilty to answer questions. Physical Exam - Physical Exam Appears: Non-toxic, No Acute Distress Skin: Normal Color, Warm, Dry Head: Atraumatic, Normacephalic Eye(s): bilateral: Normal Inspection Ear(s): Bilateral: Normal Nose: Normal Throat: Normal, No Erythema, No Exudate Neck: Normal, Supple Chest: Symmetrical, No Tenderness Cardiovascular: Rhythm Regular, No Murmur Respiratory: Normal Breath Sounds, No Rales, No Rhonchi, No Wheezing Neurological/Psych: Other (No gross focal deficits. Calm, cooperative, no acute psychosis. Intoxicated. ) ED Course And Treatment - Laboratory Results Result Diagrams: 11/14/18 09:42 11/14/18 09:42 ECG: Interpreted By Me ECG Rhythm: Sinus Rhythm ECG Interpretation: Normal Rate From EC O2 Sat by Pulse Oximetry: 95 Pulse Ox Interpretation: Normal - Radiology CXR: Interpreted by Me, Viewed By Nh CXR Interpretation: Yes: No Acute Disease (Unchanged from prior. ) - CT Scan/US CT Head Other Rad Studies (CT/US): Read By Radiologist, Radiology Report Reviewed CT/US Interpretation: IMPRESSION: No evidence of acute infarct. No intracranial mass or hemorrhage. 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 Old midbrain lacunes. Chronic white matter ischemic change. Chronic paranasal sinusitis. Progress - Re-Evaluation Re-evaluation Note: 11/14/18 10:50 D/W DR REAVES C/F PMD, WILL ADMIT - Data Reviewed Data Reviewed: Lab, Diagnostic imaging, EKG, Old records Medical Decision Making Medical Decision Making: MDM NO PRIOR CARDIAC ECHO ON RECORD, UNK EF STATUS. PT HEMODYN STABLE, NONTOXIC. DEFER IVF PER SEPSIS PROTOCOL. Chest CT demonstrated multilobar infection vs inflammatory process, numerous lytic lesions through vertebral bodies raising suspicion of multiple myeloma. Per recommendations, full bone scan was performed which showed no acute findings. Immunology workup was performed per further Heme/Onc recommendations, with no evidence for metastatic disease or multiple myeloma. CT head performed during hospital course showed no acute intracranial pathology. MRI brain was ordered but patient refused. No new facial drooping/slurred speech or acute focal changes were noted. Blood cultures and urine cultures demonstrated NO active growth. Plan: VBG CT Head EKG Chemistry Bloodwork CXR Glucose POC Tylenol 650mg PO Blood Culture Urine Culture Influenza A B Serology Urinalysis Disposition Counseled Patient/Family Regarding: Studies Performed, Diagnosis - Disposition Disposition: HOSPITALIZED Disposition Time: 10:50 Condition: STABLE - POA Present On Arrival: None - Clinical Impression Clinical Impression: Influenza, Difficulty walking, Altered mental state - Scribe Statement The provider has reviewed the documentation as recorded by the Scribe (Kishor Henry) Provider Attestation: All medical record entries made by the Scribe were at my direction and personally dictated by me. I have reviewed the chart and agree that the record accurately reflects my personal performance of the history, physical exam, medical decision making, and the department course for this patient. I have also personally directed, reviewed, and agree with the discharge instructions and disposition.
--- NOTE | 2018-11-14 09:25 | RAD ---
Date of service: 11/14/2018 PROCEDURE: CHEST RADIOGRAPH, 1 VIEW HISTORY: AMS COMPARISON: None available. FINDINGS: LUNGS: Clear. PLEURA: No pneumothorax or pleural fluid seen. CARDIOVASCULAR: No aortic atherosclerotic calcification present. Normal. OSSEOUS STRUCTURES: No significant abnormalities. VISUALIZED UPPER ABDOMEN: Normal. OTHER FINDINGS: None. IMPRESSION: No active disease.
[2018-11-14 09:50] LABS: BASO # 0.1 K/uL (0.0-0.2); BASO % 0.7 % (0.0-2.0); EOS # 0.2 K/uL (0.0-0.7); EOS % 1.8 % (0.0-4.0); HEMOGLOBIN 12.2 g/dL (11.0-16.0); LYMPH # 0.9 K/uL (1.0-4.3); LYMPH % 10.7 % (20.0-40.0); MEAN CELL VOLUME 94.6 fL (81.0-99.0); MEAN CORPUSCULAR HEMOGLOBIN 30.7 pg (27.0-31.0); MEAN CORPUSCULAR HGB CONC 32.5 g/dL (33.0-37.0); MEAN PLATELET VOLUME 8.2 fL (7.2-11.7); MONO # 2.4 K/uL (0.0-0.8); MONO % 28.2 % (0.0-10.0); NEUT % 58.6 % (50.0-75.0); RBC 3.97 Mil/uL (3.80-5.20); RED CELL DISTRIBUTION WIDTH 16.3 % (11.5-14.5); WHITE BLOOD COUNT 8.5 K/uL (4.8-10.8)
[2018-11-14 09:52] LABS: PLATELET COUNT 216 K/uL (130-400)
[2018-11-14 09:52] LABS: VENOUS BLOOD GAS PCO2 57 mmHg (40-60); VENOUS BLOOD GAS PO2 24 mm/Hg (30-55); VENOUS BLOOD PH 7.37 (7.32-7.43)
[2018-11-14 10:09] LABS: ALB/GLOB RATIO 1.1 (1.0-2.1); ALBUMIN 4.1 g/dL (3.5-5.0); ALT/SGPT 18 U/L (9-52); AST/SGOT 25 U/L (14-36); BLOOD UREA NITROGEN 12 mg/dL (7-17); CALCIUM 9.7 mg/dl (8.6-10.4); GFR NON-AFRICAN AMERICAN 55
[2018-11-14 11:04] LABS: ANISOCYTOSIS SLIGHT; BANDS 3 % (0-2); EOSINOPHIL 2 % (0-4); LYMPHOCYTE 13 % (20-40); MONOCYTE 23 % (0-10); NEUTROPHIL 59 % (50-75); PLATELET ESTIMATE NORMAL (NORMAL); TOTAL CELLS COUNTED 100
--- NOTE | 2018-11-14 11:14 | CT ---
Date of service: 11/14/2018 PROCEDURE: CT HEAD WITHOUT CONTRAST. HISTORY: AMS COMPARISON: 10/28/2018 TECHNIQUE: Axial computed tomography images were obtained through the head/brain without intravenous contrast. Radiation dose: Total exam DLP = 1129.26 mGy-cm. This CT exam was performed using one or more of the following dose reduction techniques: Automated exposure control, adjustment of the mA and/or kV according to patient size, and/or use of iterative reconstruction technique. FINDINGS: HEMORRHAGE: No intracranial hemorrhage. BRAIN: Mild diffuse age-appropriate atrophy. No evidence of acute infarct. There is moderate periventricular white matter lucency consistent with chronic microvascular white matter ischemic change. There is an old right thalamic lacunar infarct. There is an old right lentiform nucleus lacunar infarct. Scattered small lacunar are seen elsewhere in the basal ganglia bilaterally. Two small old midbrain locules are identified, 1 midline and 1 to the right of center. Note is made of flattening of the pituitary along the floor of the sella turcica. This may be associated with headache clinically VENTRICLES: Unremarkable. No hydrocephalus. CALVARIUM: Unremarkable. PARANASAL SINUSES: Chronic frontal, ethmoid and bilateral maxillary sinusitis. MASTOID AIR CELLS: Unremarkable as visualized. No inflammatory changes. OTHER FINDINGS: None. IMPRESSION: No evidence of acute infarct. No intracranial mass or hemorrhage. 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 Old midbrain lacunes. Chronic white matter ischemic change. Chronic paranasal sinusitis.
[2018-11-14 11:46] LABS: SQUAMOUS EPITHIAL 2 /hpf (0-5); URINE BILIRUBIN NEGATIVE (NEGATIVE); URINE BLOOD NEGATIVE (NEGATIVE); URINE CLARITY Clear (Clear); URINE COLOR Yellow (YELLOW); URINE GLUCOSE (UA) NORMAL (Normal); URINE LEUKOCYTE ESTERASE NEG Leu/uL (Negative); URINE PROTEIN NEGATIVE (NEGATIVE); URINE UROBILINOGEN NORMAL mg/dL (0.2-1.0)
[2018-11-14 12:28] LABS: B-TYPE NATRIURETIC PEPTIDE 373 pg/mL (0-900)
--- NOTE | 2018-11-14 12:41 | CP.PCM.HP ---
<Frankie Johnston - Last Filed: 11/14/18 16:58> History of Present Illness - History of Present Illness History of Present Illness: H&P note for Dr Brian Gilmore service cc: weakness HPI: Patient is a 73 year old female with pmhx of Bipolar disorder, DMII, HTN, HLD, Parkison's disease that came to the ED brought by her son for weakness. Patient was recently admitted on 10/28/18 for bilateral hip pain, and had negative workup for multiple myeloma. Patient is a poor historian, and is AAOx2 at time of encounter. No family is found at bedside at time of encounter. As per ED documentation, patient had difficulty walking, as well as altered mental status and urinary incontinence. Patient admits to having dificulty getting from bed but denies any pain, urinary symptoms. Patient states she is doing fine and would like to go home. Patient denies any recent falls, or LOC. Patient denies fever, chills, cough, sore throat, chest pain, shortness of breath, abdominal pain, nausea, vomiting, diarrhea, constipation or burning/pain/blood when urinating. Patient denies any recent sickness. PMD: DR Sanjay Hilton Code status: Full code Allergies: denies Pmhx: as states above in HPI Pshx: denies Fmhx: Mental illness (several members) Sochx: 10 cigarettes/day x 40 years ( used to smoke 1 pack 1/2 daily), denies alcohol or drug use Meds: depakote, gabapentin , risperidone, benztropine, aspirin, aleve Present on Admission - Present on Admission Any Indicators Present on Admission: No Review of Systems - Review of Systems All systems: reviewed and no additional remarkable complaints except Review of Systems: as stated in HPI Past Patient History - Infectious Disease Hx of Infectious Diseases: None - Past Medical History & Family History Past Medical History?: Yes - Past Social History Smoking Status: Heavy Smoker > 10 Cigarettes Daily - CARDIAC Hx Hypercholesterolemia: Yes Hx Hypertension: Yes - PULMONARY Hx Emphysema: Yes - NEUROLOGICAL Hx Parkinson's Disease: Yes - HEENT Other/Comment: wear eyeglasses - RENAL Hx Chronic Kidney Disease: No - ENDOCRINE/METABOLIC Hx Diabetes Mellitus Type 2: Yes - HEMATOLOGICAL/ONCOLOGICAL Hx Blood Disorders: No - INTEGUMENTARY Hx Dermatological Problems: No - MUSCULOSKELETAL/RHEUMATOLOGICAL Hx Arthritis: Yes - GASTROINTESTINAL Hx Gastrointestinal Disorders: No - GENITOURINARY/GYNECOLOGICAL Hx Genitourinary Disorders: No - PSYCHIATRIC Hx Anxiety: Yes Hx Bipolar Disorder: Yes Hx Depression: Yes Hx Substance Use: No - SURGICAL HISTORY Hx Surgeries: No - ANESTHESIA Hx Anesthesia: No Hx Anesthesia Reactions: No Hx Malignant Hyperthermia: No Meds Allergies/Adverse Reactions: Allergies Allergy/AdvReac Type Severity Reaction Status Date / Time No Known Allergies Allergy Verified 11/14/18 08:28 Physical Exam - Constitutional Appears: Non-toxic, No Acute Distress - Head Exam Head Exam: ATRAUMATIC, NORMAL INSPECTION, NORMOCEPHALIC - Eye Exam Eye Exam: EOMI, Normal appearance, PERRL - ENT Exam ENT Exam: Mucous Membranes Moist, Normal Exam - Neck Exam Neck exam: Positive for: Full Rom, Normal Inspection - Respiratory Exam Respiratory Exam: Decreased Breath Sounds, Clear to Auscultation Bilateral, NORM AL BREATHING PATTERN. absent: Rales, Rhonchi, Wheezes - Cardiovascular Exam Cardiovascular Exam: REGULAR RHYTHM, +S1, +S2 - GI/Abdominal Exam GI & Abdominal Exam: Normal Bowel Sounds, Soft. absent: Distended, Tenderness - Extremities Exam Extremities exam: Positive for: normal inspection. Negative for: pedal edema, tenderness - Back Exam Back exam: FULL ROM, NORMAL INSPECTION - Neurological Exam Neurological exam: Alert, CN II-XII Intact Additional comments: AAOx2 Unintelligle speech - Expanded Neurological Exam Expanded Cranial nerves: EOM's Intact: Normal, Facial Palsey w/Forehead Movement: Normal, Facial Palsey w/o Forehead Movement: Normal, Tongue Deviation: Normal Cerebellar Function: Finger to Nose: Normal Upper motor neuron: Pronator Drift: Normal Sensory exam: Lower Extremity Light Touch: Normal, Upper Extremity Light Touch: Normal Neuro motor strength exam: Left Upper Extremity: 5, Right Upper Extremity: 5, Left Lower Extremity: 5, Right Lower Extremity: 5 - Psychiatric Exam Psychiatric exam: Normal Affect, Normal Mood - Skin Skin Exam: Dry, Intact, Normal Color, Warm Results - Vital Signs Recent Vital Signs: Last Vital Signs Temp 100.8 F H 11/14/18 11:06 Pulse 80 11/14/18 11:06 Resp 20 11/14/18 11:06 BP 132/62 11/14/18 11:06 Pulse Ox 95 11/14/18 11:49 - Labs Result Diagrams: 11/14/18 09:42 11/14/18 09:42 Labs: Laboratory Results - last 24 hr 11/14/18 11/14/18 11/14/18 08:24 09:27 09:42 WBC 8.5 RBC 3.97 Hgb 12.2 Hct 37.6 MCV 94.6 MCH 30.7 MCHC 32.5 L RDW 16.3 H Plt Count 216 D MPV 8.2 Neut % (Auto) 58.6 Lymph % (Auto) 10.7 L [place] % (Auto) 28.2 H Eos % (Auto) 1.8 Baso % (Auto) 0.7 Neut # (Auto) 5.0 Lymph # (Auto) 0.9 L [place] # (Auto) 2.4 H Eos # (Auto) 0.2 Baso # (Auto) 0.1 Neutrophils % (Manual) 59 Band Neutrophils % 3 H Lymphocytes % (Manual) 13 L Monocytes % (Manual) 23 H Eosinophils % (Manual) 2 Platelet Estimate Normal Anisocytosis (manual) Slight pO2 VBG pH VBG pCO2 VBG HCO3 VBG Total CO2 VBG O2 Sat (Calc) VBG Base Excess VBG Potassium Glucose Lactate Sodium Potassium Chloride Carbon Dioxide Anion Gap BUN Creatinine Est GFR ( Amer) Est GFR (Non-Af Amer) POC Glucose (mg/dL) 93 Random Glucose Calcium Phosphorus Magnesium Total Bilirubin AST ALT Alkaline Phosphatase NT-Pro-B Natriuret Pep Total Protein Albumin Globulin Albumin/Globulin Ratio Venous Blood Potassium Urine Color Urine Clarity Urine pH Ur Specific [place] Urine Protein Urine Glucose (UA) Urine Ketones Urine Blood Urine Nitrate Urine Bilirubin Urine Urobilinogen Ur Leukocyte Esterase Urine WBC (Auto) Urine RBC (Auto) Ur Squamous Epith Cells Influenza Typ A,B (EIA) Pos for influenza a H 11/14/18 11/14/18 11/14/18 09:42 09:49 11:06 WBC RBC Hgb Hct MCV MCH MCHC RDW Plt Count MPV Neut % (Auto) Lymph % (Auto) [place] % (Auto) Eos % (Auto) Baso % (Auto) Neut # (Auto) Lymph # (Auto) [place] # (Auto) Eos # (Auto) Baso # (Auto) Neutrophils % (Manual) Band Neutrophils % Lymphocytes % (Manual) Monocytes % (Manual) Eosinophils % (Manual) Platelet Estimate Anisocytosis (manual) pO2 24 L VBG pH 7.37 VBG pCO2 57 VBG HCO3 28.1 VBG Total CO2 34.7 H VBG O2 Sat (Calc) 38.3 L VBG Base Excess 6.0 H VBG Potassium 4.4 Glucose 74 Lactate 1.1 Sodium 141 142.0 Potassium 4.4 Chloride 103 107.0 Carbon Dioxide 30 Anion Gap 12 BUN 12 Creatinine 1.0 Est GFR ( Amer) > 60 Est GFR (Non-Af Amer) 55 POC Glucose (mg/dL) Random Glucose 88 Calcium 9.7 Phosphorus 4.3 Magnesium 1.6 Total Bilirubin 0.4 AST 25 ALT 18 Alkaline Phosphatase 61 NT-Pro-B Natriuret Pep 373 Total Protein 7.6 Albumin 4.1 Globulin 3.5 Albumin/Globulin Ratio 1.1 Venous Blood Potassium 4.4 Urine Color Yellow Urine Clarity Clear Urine pH 7.0 Ur Specific [place] 1.011 Urine Protein Negative Urine Glucose (UA) Normal Urine Ketones Negative Urine Blood Negative Urine Nitrate Negative Urine Bilirubin Negative Urine Urobilinogen Normal Ur Leukocyte Esterase Neg Urine WBC (Auto) 1 Urine RBC (Auto) 4 H Ur Squamous Epith Cells 2 Influenza Typ A,B (EIA) Assessment & Plan - Assessment and Plan (Free Text) Assessment: Patient is a 73 year old female with pmhx of bipolar dx, DM, HTN, HLD, Park insons presenting to the ED for AMS, low grade fever, weakness in no acute distress. no leukocytosis, Negative Cxray and negative CT scan for acute hemorrhagic bleed, influenza positive, pending blood culture and urine culture. Plan: Influenza, r/o respiratory infection - Flu test positive - low grade fever, no leukocytosis - CXR: no acute pulmonary disease - f/u blood culture - f/u urine culture - Tamiflu 75mg PO STAT - Tamiflu 30mg PO BID - Rocephin 1gm IVPB BID - prophylaxis - Zithromax 500mg IVPB DAILY - prophylaxis - NS @ 70 cc/hr - repeat portable Cxray tomorrow - Patient to be on isolation precautions. - Zofran 4mg IV Q6 PRN for nausea - Tylenol 650mg PO Q6PRN for pain Altered Mental Status/ weakness r/o CVA vs UTI vs bacteremia -AAOx2 CT head: No evidence of acute infarct. No intracranial mass or hemorrhage. Mu ltiple basal ganglia and right thalamic lacunar infarct. Old midbrain lacunes. Chronic white matter ischemic change. Chronic paranasal sinusitis. EKG: Normal sinus rhythm CXR: no acute pulmonary disease low grade fever, no leukocytosis - f/u Blood culture - f/u Urine culture - U/A negative for LE or WBC. - PT/OT - f/u - It is possible that patient is at baseline. bipolar disorder - continue home meds - risperidone 1mg BID - Depakote 500mg PO BID Parkinson disease - continue home med benztropine 1mg BID hx of diabetes - not currently taking DM medications - HbA1c 10/29 - 6.3 - monitor glucose levels accucheck ACHS - ISS low dose - hypoglycemia protocol - gabapentin 300mg PO BID for diabetic neuropathy hx of HTN - not currently taking any HTN medications - vitals within normal limits - continue monitoring vitals - continue aspirin 81mg PO daily hx of HLD - not on any statin medication - Lipid panel 10/29 - within normal limitis PPX - DVT: SCDs, Heparin 5000U SC Q12H - GI: pepcid 20mg IVP - Diet: heart healthy diet, low carb consistent diet - NC @ 2L PRN - PT/OT - Patient is full code - update on proxy and if patient has AD/LW Plan discussed with Dr Brian Johnston, PGY-1 - Date & Time Date: 11/14/18 Time: 12:00 <Brian Gilmore H - Last Filed: 11/14/18 18:11> Results - Vital Signs Recent Vital Signs: Last Vital Signs Temp 100.4 F H 11/14/18 14:50 Pulse 78 11/14/18 14:50 Resp 22 11/14/18 14:50 BP 146/69 11/14/18 14:50 Pulse Ox 97 11/14/18 14:50 - Labs Result Diagrams: 11/14/18 09:42 11/14/18 09:42 Labs: Laboratory Results - last 24 hr 11/14/18 11/14/18 11/14/18 08:24 09:27 09:42 WBC 8.5 RBC 3.97 Hgb 12.2 Hct 37.6 MCV 94.6 MCH 30.7 MCHC 32.5 L RDW 16.3 H Plt Count 216 D MPV 8.2 Neut % (Auto) 58.6 Lymph % (Auto) 10.7 L [place] % (Auto) 28.2 H Eos % (Auto) 1.8 Baso % (Auto) 0.7 Neut # (Auto) 5.0 Lymph # (Auto) 0.9 L [place] # (Auto) 2.4 H Eos # (Auto) 0.2 Baso # (Auto) 0.1 Neutrophils % (Manual) 59 Band Neutrophils % 3 H Lymphocytes % (Manual) 13 L Monocytes % (Manual) 23 H Eosinophils % (Manual) 2 Platelet Estimate Normal Anisocytosis (manual) Slight pO2 VBG pH VBG pCO2 VBG HCO3 VBG Total CO2 VBG O2 Sat (Calc) VBG Base Excess VBG Potassium Glucose Lactate Sodium Potassium Chloride Carbon Dioxide Anion Gap BUN Creatinine Est GFR ( Amer) Est GFR (Non-Af Amer) POC Glucose (mg/dL) 93 Random Glucose Calcium Phosphorus Magnesium Total Bilirubin AST ALT Alkaline Phosphatase NT-Pro-B Natriuret Pep Total Protein Albumin Globulin Albumin/Globulin Ratio Venous Blood Potassium Urine Color Urine Clarity Urine pH Ur Specific [place] Urine Protein Urine Glucose (UA) Urine Ketones Urine Blood Urine Nitrate Urine Bilirubin Urine Urobilinogen Ur Leukocyte Esterase Urine WBC (Auto) Urine RBC (Auto) Ur Squamous Epith Cells Influenza Typ A,B (EIA) Pos for influenza a H 11/14/18 11/14/18 11/14/18 09:42 09:49 11:06 WBC RBC Hgb Hct MCV MCH MCHC RDW Plt Count MPV Neut % (Auto) Lymph % (Auto) [place] % (Auto) Eos % (Auto) Baso % (Auto) Neut # (Auto) Lymph # (Auto) [place] # (Auto) Eos # (Auto) Baso # (Auto) Neutrophils % (Manual) Band Neutrophils % Lymphocytes % (Manual) Monocytes % (Manual) Eosinophils % (Manual) Platelet Estimate Anisocytosis (manual) pO2 24 L VBG pH 7.37 VBG pCO2 57 VBG HCO3 28.1 VBG Total CO2 34.7 H VBG O2 Sat (Calc) 38.3 L VBG Base Excess 6.0 H VBG Potassium 4.4 Glucose 74 Lactate 1.1 Sodium 141 142.0 Potassium 4.4 Chloride 103 107.0 Carbon Dioxide 30 Anion Gap 12 BUN 12 Creatinine 1.0 Est GFR ( Amer) > 60 Est GFR (Non-Af Amer) 55 POC Glucose (mg/dL) Random Glucose 88 Calcium 9.7 Phosphorus 4.3 Magnesium 1.6 Total Bilirubin 0.4 AST 25 ALT 18 Alkaline Phosphatase 61 NT-Pro-B Natriuret Pep 373 Total Protein 7.6 Albumin 4.1 Globulin 3.5 Albumin/Globulin Ratio 1.1 Venous Blood Potassium 4.4 Urine Color Yellow Urine Clarity Clear Urine pH 7.0 Ur Specific [place] 1.011 Urine Protein Negative Urine Glucose (UA) Normal Urine Ketones Negative Urine Blood Negative Urine Nitrate Negative Urine Bilirubin Negative Urine Urobilinogen Normal Ur Leukocyte Esterase Neg Urine WBC (Auto) 1 Urine RBC (Auto) 4 H Ur Squamous Epith Cells 2 Influenza Typ A,B (EIA) Attending/Attestation - Attestation I have personally seen and examined this patient.: Yes I have fully participated in the care of the patient.: Yes I have reviewed all pertinent clinical information: Yes Notes (Text): 11/14/18 18:07 Medical attending: Patient was seen and examined by me in the ER with the biomedical instrument technician The patient was here recently due to concerns for potential multiple myeloma however this was not the case. The patient current not in any acute distress however recently family members reportedly patient feeling not well and fatigued. In the ER tested positive for influenza The patient will be started on Tamiflu, also slow IVF, tyelenol as well as supportive care The patient did have cultures drawn and for now IV abx however this is empirically given for now - should something change then she may need more abx Patient's mental status appears slow, she is cooperative and pleasant - also at some moments funny. However she does have a slow affect Brian Gilmore
[2018-11-14] MEDS: Sodium Chloride 0.9% 1,000 ML IV SCH (13:05)
[2018-11-14] MEDS: cefTRIAXone IV 1 gm in Dextros 50 ML IVPB SCH (13:49)
[2018-11-14] MEDS: Azithromycin 500 MG in Sodium Chloride 0.9% 250 ML IVPB SCH (14:49)
[2018-11-14] MEDS: Oseltamivir 6 MG/ML PO SCH (17:14)
[2018-11-14] MEDS ORDERED: Glucagon Recombinant 1 mg Inj IM PRN (17:28)
[2018-11-14] MEDS ORDERED: Dextrose 50% SYRINGE Inj (50 ml) IV PRN (17:28)
[2018-11-14] MEDS: (Novolin R) Insulin Human Regular 100 units/ml vial SC SCH (21:41)
[2018-11-15] MEDS: cefTRIAXone IV 1 gm in Dextros 50 ML IVPB SCH (01:28)
[2018-11-15 06:00] LABS: BASO # 0.1 K/uL (0.0-0.2); BASO % 0.9 % (0.0-2.0); EOS # 0.1 K/uL (0.0-0.7); EOS % 1.1 % (0.0-4.0); HEMOGLOBIN 11.4 g/dL (11.0-16.0); LYMPH # 2.1 K/uL (1.0-4.3); LYMPH % 33.1 % (20.0-40.0); MEAN CELL VOLUME 94.1 fL (81.0-99.0); MEAN CORPUSCULAR HGB CONC 31.9 g/dL (33.0-37.0); MEAN PLATELET VOLUME 8.6 fL (7.2-11.7); MONO # 2.6 K/uL (0.0-0.8); NEUT # 1.4 K/uL (1.8-7.0); NEUT % 22.9 % (50.0-75.0); PLATELET COUNT 193 K/uL (130-400); RBC 3.79 Mil/uL (3.80-5.20); RED CELL DISTRIBUTION WIDTH 16.3 % (11.5-14.5); WHITE BLOOD COUNT 6.2 K/uL (4.8-10.8)
[2018-11-15 06:20] LABS: ALBUMIN 3.5 g/dL (3.5-5.0); ALT/SGPT 21 U/L (9-52); AST/SGOT 26 U/L (14-36); BLOOD UREA NITROGEN 14 mg/dL (7-17); CALCIUM 8.8 mg/dl (8.6-10.4); GFR NON-AFRICAN AMERICAN > 60
[2018-11-15 06:50] LABS: HEPATITIS B SURFACE AG Negative (NEGATIVE)
[2018-11-15 06:56] LABS: HEPATITIS A IGM NEGATIVE (NEGATIVE); HEPATITIS B CORE AB NEGATIVE (NEGATIVE)
[2018-11-15 07:10] LABS: HEPATITIS C ANTIBODY NEGATIVE (NEGATIVE)
[2018-11-15] MEDS: (Novolin R) Insulin Human Regular 100 units/ml vial SC SCH ×3 (07:34→22:36)
[2018-11-15 08:40] LABS: BANDS 2 % (0-2); EOSINOPHIL 1 % (0-4); LYMPHOCYTE 32 % (20-40); MONOCYTE 41 % (0-10); NEUTROPHIL 24 % (50-75); TOTAL CELLS COUNTED 100
[2018-11-15 08:41] LABS: PLATELET ESTIMATE NORMAL (NORMAL)
[2018-11-15 08:42] LABS: ANISOCYTOSIS SLIGHT
[2018-11-15 08:44] LABS: TEARDROP CELLS SLIGHT
--- NOTE | 2018-11-15 09:12 | CP.PCM.PN ---
Subjective - Date & Time of Evaluation Date of Evaluation: 11/15/18 Time of Evaluation: 09:11 - Subjective Subjective: PGY-1 Medicine Progress Note for Dr. Gilmore Patient seen and examined at bedside in ED. No acute overnight events reported. Patient states she feels good--"I dont know why I'm here". The patient had no complaints and asked to be sent back home, but family insisted that she remains in the hospital for management. Spoke to daughter on phone who confirms patient has baseline confusion, patient is AOx2 on interview. Patient does have dry cough on exam, denies any sob, is flu positive. No fevers/chills, chest pain, palpitations, abdominal pain, n/v/d/c. Objective - Vital Signs/Intake and Output Vital Signs (last 24 hours): Temp Pulse Resp BP Pulse Ox 98.3 F 83 14 138/72 95 11/15/18 05:54 11/15/18 05:54 11/15/18 05:54 11/15/18 05:54 11/15/18 07:13 - Medications Medications: Current Medications Acetaminophen (Tylenol 325mg Tab) 650 mg PO Q6 PRN PRN Reason: Fever >100.4 F Last Admin: 11/14/18 19:21 Dose: 650 mg Aspirin (Aspirin Chewable) 81 mg PO DAILY [facility] Benztropine Mesylate (Cogentin) 1 mg PO BID [facility] Last Admin: 11/14/18 17:15 Dose: 1 mg Dextrose (Dextrose 50% Inj) 0 ml IV STAT PRN; Protocol PRN Reason: Hypoglycemia Protocol Dextrose (Glutose 15) 0 gm PO ONCE PRN; Protocol PRN Reason: Hypoglycemia Protocol Divalproex Sodium (Depakote Er) 500 mg PO DAILY [facility] Gabapentin (Neurontin) 300 mg PO BID [facility] Last Admin: 11/14/18 17:14 Dose: 300 mg Glucagon (Glucagen Diagnostic Kit) 0 mg IM STAT PRN; Protocol PRN Reason: Hypoglycemia Protocol Heparin Sodium (Porcine) (Heparin) 5,000 units SC Q12 [facility] Last Admin: 11/14/18 21:54 Dose: 5,000 units Sodium Chloride (Sodium Chloride 0.9%) 1,000 mls @ 70 mls/hr IV .[id number] [facility] Last Admin: 11/14/18 13:05 Dose: 70 mls/hr Azithromycin 500 mg/ Sodium (Chloride) 250 mls @ 250 mls/hr IVPB Q24H [facility]; Protocol Last Admin: 11/14/18 14:49 Dose: 250 mls/hr Ceftriaxone Sodium (Rocephin Iv 1 Gm Duplex) 50 mls @ 100 mls/hr IVPB Q12H [facility]; Protocol Last Admin: 11/15/18 01:28 Dose: 100 mls/hr Dextrose (Dextrose 5% In Water 1000 Ml) 1,000 mls @ 0 mls/hr IV .Q0M PRN; Protocol PRN Reason: Hypoglycemia Protocol Insulin Human Regular (Novolin R) 0 unit SC ACHS [facility]UL[facility]; Protocol Last Admin: 11/15/18 07:34 Dose: Not Given Nicotine (Nicoderm Cq) 1 patch TD DAILY [facility] Ondansetron HCl (Zofran Inj) 4 mg IVP Q6 PRN PRN Reason: Nausea/Vomiting Oseltamivir Phosphate (Tamiflu Susp) 30 mg PO BID [facility]; Protocol Stop: 11/19/18 11:14 Last Admin: 11/14/18 17:14 Dose: 30 mg Pantoprazole Sodium (Protonix Inj) 40 mg IVP DAILY [facility] Risperidone (Risperdal Tab) 1 mg PO BID [facility] Last Admin: 11/14/18 17:14 Dose: 1 mg - Labs Labs: 11/15/18 05:52 11/15/18 05:52 - Constitutional Appears: Non-toxic, No Acute Distress, Confused - Head Exam Head Exam: ATRAUMATIC, NORMAL INSPECTION, NORMOCEPHALIC - Eye Exam Eye Exam: EOMI, Normal appearance - ENT Exam ENT Exam: Mucous Membranes Moist, Normal Exam - Neck Exam Neck Exam: Full ROM, Normal Inspection. absent: Tenderness - Respiratory Exam Respiratory Exam: Clear to Ausculation Bilateral, NORMAL BREATHING PATTERN. absent: Accessory Muscle Use, Rales, Rhonchi, Wheezes, Respiratory Distress, Stridor - Cardiovascular Exam Cardiovascular Exam: REGULAR RHYTHM, +S1, +S2 - GI/Abdominal Exam GI & Abdominal Exam: Soft, Normal Bowel Sounds. absent: Distended, Firm, Guarding, Rigid, Tenderness - Extremities Exam Extremities Exam: Full ROM, Normal Capillary Refill, Normal Inspection. absent: Calf Tenderness - Back Exam Back Exam: NORMAL INSPECTION - Neurological Exam Neurological Exam: Alert, Awake, Normal Gait - Psychiatric Exam Psychiatric exam: Normal Affect, Normal Mood - Skin Skin Exam: Dry, Intact, Normal Color, Warm Assessment and Plan - Assessment and Plan (Free Text) Assessment: Patient is a 73 year old female with pmhx of bipolar dx, DM, HTN, HLD, Parkinsons presenting to the ED for AMS, low grade fever, weakness in no acute distress. no leukocytosis, Negative Cxray and negative CT scan for acute hemorrhagic bleed, influenza positive, pending blood culture and urine culture. Plan: Influenza, r/o respiratory infection -currently afebrile, T max 102.2 last night -no leukocytosis -flu positive -isolation precaution -blood culture no growth x2 -urine culture no growth -CXR: no active disease -Tamiflu 30mg PO BID -Rocephin 1gm IVPB BID -Zithromax 500mg IVPB daily -NS @ 70 cc/hr -Zofran 4mg IV Q6 PRN for nausea -Tylenol 650mg PO Q6PRN for pain AMS -r/o CVA vs UTI vs bacteremia -AAOx2 -Psych consult (Dr. Mosqueda) on board to assess capacity -Neuro recs (Dr. Moreira) appreciated -This may be the patient's baseline considering she has dementia. - may have some acute encephalopathy due to active infection for which antibiotics were started. The patient has multiple lacunar infarcts involving subcortical structures on the CT head. These are chronic. However, an MRI of the brain without contrast may be helpful in determining if there is an acute process since the CT is not as accurate in the acute setting. -Sinemet 100/25 TID for suspected Parkinsons -CT head: No evidence of acute infarct. No intracranial mass or hemorrhage. 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 Old midbrain lacunes. Chronic white matter ischemic change. Chronic paranasal sinusitis. -EKG: Normal sinus rhythm -CXR: no acute pulmonary disease Hx Bipolar Disorder - continue home meds - risperidone 1mg BID - Depakote 500mg PO BID Parkinson disease -home cogentin -Sinemet 100/25 TID, per Neuro recs DM - not currently taking DM medications - HbA1c (10/29): 6.3 - monitor glucose levels accucheck ACHS - ISS low dose - hypoglycemia protocol - gabapentin 300mg PO BID for diabetic neuropathy HTN - not currently taking any HTN medications - vitals within normal limits - continue monitoring vitals - continue aspirin 81mg PO daily HLD - not on any statin medication - Lipid panel (10/29) wnl PPx, Diet, Disposition - DVT ppx: SCDs, Heparin 5000U SC Q12H - GI ppx: pepcid 20mg IVP - Diet: heart healthy diet, low carb consistent diet - NC @ 2L PRN - PT/OT - Patient is full code - update on proxy and if patient has AD/LW Case discussed with Dr. Deirdre Green DO, PGY-1
[2018-11-15] MEDS: Divalproex 500 mg ER Tab PO SCH (09:13)
[2018-11-15] MEDS: Oseltamivir 6 MG/ML PO SCH (09:38)
--- NOTE | 2018-11-15 12:17 | RAD ---
Date of service: 11/15/2018 HISTORY: influenza positive COMPARISON: 11/14/2018. FINDINGS: LUNGS: The lungs are well inflated and clear. PLEURA: No pleural effusions or pneumothorax. CARDIOVASCULAR: There is persistent mild cardiomegaly with prominent central vasculature. No aortic atherosclerotic calcifications present. OSSEOUS STRUCTURES: Within normal limits for the patient's age. VISUALIZED UPPER ABDOMEN: Normal. OTHER FINDINGS: None. IMPRESSION: No active pulmonary disease.
[2018-11-15] MEDS ORDERED: Azithromycin 500mg/250ML NS 500 MG/250 ML BAG IVPB ONE (15:02)
[2018-11-15] MEDS ORDERED: Sodium Chloride 0.9% 1,000 ML ONE (15:02)
[2018-11-15] MEDS: Sodium Chloride 0.9% 1,000 ML IV SCH (15:07)
[2018-11-15] MEDS: Azithromycin 500 MG in Sodium Chloride 0.9% 250 ML IVPB SCH (15:07)
--- NOTE | 2018-11-15 15:51 | CP.PCM.CON ---
History of Present Illness - History of Present Illness History of Present Illness: Neurology Consultation Note: Mrs. Rosenthal is a 73-year-old woman with a past medical history of Bipolar disorder, DMII, HTN, HLD, Parkison's disease, who has baseline dementia and was sent in by family for generalized weakness. Neurology was consulted by the ED for altered mental status. The patient had no complaints and asked to be sent back home, but family insisted that she remains in the hospital for management. Review of Systems - Review of Systems Systems not reviewed;Unavailable: Altered Mental Status Past Patient History - Infectious Disease Hx of Infectious Diseases: None - Past Medical History & Family History Past Medical History?: Yes - Past Social History Smoking Status: Heavy Smoker > 10 Cigarettes Daily - CARDIAC Hx Hypercholesterolemia: Yes Hx Hypertension: Yes - PULMONARY Hx Emphysema: Yes - NEUROLOGICAL Hx Parkinson's Disease: Yes - HEENT Other/Comment: wear eyeglasses - RENAL Hx Chronic Kidney Disease: No - ENDOCRINE/METABOLIC Hx Diabetes Mellitus Type 2: Yes - HEMATOLOGICAL/ONCOLOGICAL Hx Blood Disorders: No - INTEGUMENTARY Hx Dermatological Problems: No - MUSCULOSKELETAL/RHEUMATOLOGICAL Hx Arthritis: Yes - GASTROINTESTINAL Hx Gastrointestinal Disorders: No - GENITOURINARY/GYNECOLOGICAL Hx Genitourinary Disorders: No - PSYCHIATRIC Hx Anxiety: Yes Hx Bipolar Disorder: Yes Hx Depression: Yes Hx Substance Use: No - SURGICAL HISTORY Hx Surgeries: No - ANESTHESIA Hx Anesthesia: No Hx Anesthesia Reactions: No Hx Malignant Hyperthermia: No Meds Home Medications: Home Medication List Medication Instructions Recorded Confirmed Type Oseltamivir Cap [Tamiflu Cap] 75 mg PO BID #10 capsule 11/15/18 Rx Allergies/Adverse Reactions: Allergies Allergy/AdvReac Type Severity Reaction Status Date / Time No Known Allergies Allergy Verified 11/14/18 08:28 - Medications Medications: Current Medications Acetaminophen (Tylenol 325mg Tab) 650 mg PO Q6 PRN PRN Reason: Fever >100.4 F Last Admin: 11/14/18 19:21 Dose: 650 mg Aspirin (Aspirin Chewable) 81 mg PO DAILY [facility] Last Admin: 11/15/18 09:14 Dose: 81 mg Benztropine Mesylate (Cogentin) 1 mg PO BID [facility] Last Admin: 11/15/18 09:14 Dose: 1 mg Dextrose (Dextrose 50% Inj) 0 ml IV STAT PRN; Protocol PRN Reason: Hypoglycemia Protocol Dextrose (Glutose 15) 0 gm PO ONCE PRN; Protocol PRN Reason: Hypoglycemia Protocol Divalproex Sodium (Depakote Er) 500 mg PO DAILY [facility] Last Admin: 11/15/18 09:13 Dose: 500 mg Gabapentin (Neurontin) 300 mg PO BID [facility] Last Admin: 11/15/18 09:15 Dose: 300 mg Glucagon (Glucagen Diagnostic Kit) 0 mg IM STAT PRN; Protocol PRN Reason: Hypoglycemia Protocol Heparin Sodium (Porcine) (Heparin) 5,000 units SC Q12 [facility] Last Admin: 11/15/18 09:38 Dose: 5,000 units Sodium Chloride (Sodium Chloride 0.9%) 1,000 mls @ 70 mls/hr IV .[id number] [facility] Last Admin: 11/15/18 15:07 Dose: 70 mls/hr Azithromycin 500 mg/ Sodium (Chloride) 250 mls @ 250 mls/hr IVPB Q24H [facility]; Prot ocol Last Admin: 11/15/18 15:07 Dose: 250 mls/hr Dextrose (Dextrose 5% In Water 1000 Ml) 1,000 mls @ 0 mls/hr IV .Q0M PRN; Protocol PRN Reason: Hypoglycemia Protocol Insulin Human Regular (Novolin R) 0 unit SC ACHS [facility]; Protocol Last Admin: 11/15/18 11:22 Dose: Not Given Nicotine (Nicoderm Cq) 1 patch TD DAILY [facility] Last Admin: 11/15/18 09:15 Dose: 1 patch Ondansetron HCl (Zofran Inj) 4 mg IVP Q6 PRN PRN Reason: Nausea/Vomiting Oseltamivir Phosphate (Tamiflu Susp) 30 mg PO BID [facility]; Protocol Stop: 11/19/18 11:14 Last Admin: 11/15/18 09:38 Dose: 30 mg Pantoprazole Sodium (Protonix Inj) 40 mg IVP DAILY [facility] Last Admin: 11/15/18 09:38 Dose: 40 mg Risperidone (Risperdal Tab) 1 mg PO BID [facility] Last Admin: 11/15/18 09:15 Dose: 1 mg Physical Exam - Constitutional Appears: Well - Head Exam Head Exam: ATRAUMATIC, NORMAL INSPECTION, NORMOCEPHALIC - Eye Exam Eye Exam: EOMI, Normal appearance, PERRL Pupil Exam: NORMAL ACCOMODATION, PERRL - ENT Exam ENT Exam: Mucous Membranes Moist, Normal Exam - Neck Exam Neck exam: Positive for: Normal Inspection - Respiratory Exam Respiratory Exam: Clear to Auscultation Bilateral, NORMAL BREATHING PATTERN - Cardiovascular Exam Cardiovascular Exam: REGULAR RHYTHM - GI/Abdominal Exam GI & Abdominal Exam: Normal Bowel Sounds, Soft. absent: Tenderness - Rectal Exam Rectal Exam: Deferred - Extremities Exam Extremities exam: Positive for: normal inspection - Back Exam Back exam: NORMAL INSPECTION - Neurological Exam Neurological exam: Altered, CN II-XII Intact, Oriented x3, Reflexes Normal Additional comments: Confused about location, time and person. Oriented to name, but not age or date of . Bilateral resting tremor, bradykinesia, cogwheeling and rigidity noted. - Psychiatric Exam Psychiatric exam: Normal Affect, Normal Mood - Skin Skin Exam: Dry, Intact, Normal Color, Warm Results - Vital Signs Recent Vital Signs: Last Vital Signs Temp 98.9 F 11/15/18 12:11 Pulse 78 11/15/18 12:11 Resp 18 11/15/18 12:11 BP 158/84 H 11/15/18 12:11 Pulse Ox 95 11/15/18 12:11 - Labs Result Diagrams: 11/15/18 05:52 11/15/18 05:52 Labs: Laboratory Results - last 24 hr 11/14/18 11/15/18 11/15/18 21:31 00:49 05:51 WBC RBC Hgb Hct MCV MCH MCHC RDW Plt Count MPV Neut % (Auto) Lymph % (Auto) [place] % (Auto) Eos % (Auto) Baso % (Auto) Neut # (Auto) Lymph # (Auto) [place] # (Auto) Eos # (Auto) Baso # (Auto) Neutrophils % (Manual) Band Neutrophils % Lymphocytes % (Manual) Monocytes % (Manual) Eosinophils % (Manual) Platelet Estimate Anisocytosis (manual) Tear Drop Cells Sodium Potassium Chloride Carbon Dioxide Anion Gap BUN Creatinine Est GFR ( Amer) Est GFR (Non-Af Amer) POC Glucose (mg/dL) 86 75 104 Random Glucose Calcium Total Bilirubin AST ALT Alkaline Phosphatase Total Protein Albumin Globulin Albumin/Globulin Ratio Hepatitis A IgM Ab Hep Bs Antigen Hep B Core IgM Ab Hepatitis C Antibody 11/15/18 11/15/18 11/15/18 05:52 05:52 05:52 WBC 6.2 RBC 3.79 L Hgb 11.4 Hct 35.7 MCV 94.1 MCH 30.0 MCHC 31.9 L RDW 16.3 H Plt Count 193 MPV 8.6 Neut % (Auto) 22.9 L Lymph % (Auto) 33.1 [place] % (Auto) 42.0 H Eos % (Auto) 1.1 Baso % (Auto) 0.9 Neut # (Auto) 1.4 L Lymph # (Auto) 2.1 [place] # (Auto) 2.6 H Eos # (Auto) 0.1 Baso # (Auto) 0.1 Neutrophils % (Manual) 24 L Band Neutrophils % 2 Lymphocytes % (Manual) 32 Monocytes % (Manual) 41 H Eosinophils % (Manual) 1 Platelet Estimate Normal Anisocytosis (manual) Slight Tear Drop Cells Slight Sodium 138 Potassium 3.8 Chloride 103 Carbon Dioxide 26 Anion Gap 12 BUN 14 Creatinine 0.9 Est GFR ( Amer) > 60 Est GFR (Non-Af Amer) > 60 POC Glucose (mg/dL) Random Glucose 89 Calcium 8.8 Total Bilirubin 0.3 AST 26 ALT 21 Alkaline Phosphatase 57 Total Protein 6.9 Albumin 3.5 Globulin 3.4 Albumin/Globulin Ratio 1.0 Hepatitis A IgM Ab Negative Hep Bs Antigen Negative Hep B Core IgM Ab Negative Hepatitis C Antibody Negative 11/15/18 11:21 WBC RBC Hgb Hct MCV MCH MCHC RDW Plt Count MPV Neut % (Auto) Lymph % (Auto) [place] % (Auto) Eos % (Auto) Baso % (Auto) Neut # (Auto) Lymph # (Auto) [place] # (Auto) Eos # (Auto) Baso # (Auto) Neutrophils % (Manual) Band Neutrophils % Lymphocytes % (Manual) Monocytes % (Manual) Eosinophils % (Manual) Platelet Estimate Anisocytosis (manual) Tear Drop Cells Sodium Potassium Chloride Carbon Dioxide Anion Gap BUN Creatinine Est GFR ( Amer) Est GFR (Non-Af Amer) POC Glucose (mg/dL) 119 H Random Glucose Calcium Total Bilirubin AST ALT Alkaline Phosphatase Total Protein Albumin Globulin Albumin/Globulin Ratio Hepatitis A IgM Ab Hep Bs Antigen Hep B Core IgM Ab Hepatitis C Antibody Assessment & Plan (1) Altered mental state Assessment and Plan: This may be the patient's baseline considering she has dementia. However, she may have some acute encephalopathy due to active infection for which antibiotics were started. The patient has multiple lacunar infarcts involving subcortical structures on the CT head. These are chronic. However, an MRI of the brain without contrast may be helpful in determining if there is an acute process since the CT is not as accurate in the acute setting. Thank you for the consultation. Status: Acute (2) Parkinson disease Assessment and Plan: I recommend starting the patient on Sinemet 100/25 TID. Status: Acute
--- NOTE | 2018-11-15 17:34 | CARD ---
APPROVED REPORT Date of service: 11/14/2018 EKG Measurement Heart [id number] <Conclusion> Normal sinus rhythm with sinus arrhythmia Left anterior fascicular block Minimal voltage criteria for LVH, may be normal variant Septal infarct, age undetermined Possible Lateral infarct, age undetermined Abnormal ECG
[2018-11-16 00:54] VITALS: RESP 20
[2018-11-16] MEDS: (Novolin R) Insulin Human Regular 100 units/ml vial SC SCH ×4 (07:50→22:22)
[2018-11-16] MEDS: Oseltamivir 6 MG/ML PO SCH ×3 (10:00→19:57)
[2018-11-16 11:23] LABS: BASO # 0.1 K/uL (0.0-0.2); BASO % 1.4 % (0.0-2.0); EOS # 0.1 K/uL (0.0-0.7); EOS % 1.7 % (0.0-4.0); HEMOGLOBIN 11.8 g/dL (11.0-16.0); LYMPH # 2.4 K/uL (1.0-4.3); LYMPH % 58.5 % (20.0-40.0); MEAN CELL VOLUME 94.4 fL (81.0-99.0); MEAN CORPUSCULAR HEMOGLOBIN 30.7 pg (27.0-31.0); MEAN CORPUSCULAR HGB CONC 32.5 g/dL (33.0-37.0); MEAN PLATELET VOLUME 8.5 fL (7.2-11.7); MONO # 0.9 K/uL (0.0-0.8); MONO % 21.2 % (0.0-10.0); NEUT # 0.7 K/uL (1.8-7.0); NEUT % 17.2 % (50.0-75.0); PLATELET COUNT 194 K/uL (130-400); RBC 3.83 Mil/uL (3.80-5.20); RED CELL DISTRIBUTION WIDTH 16.2 % (11.5-14.5); WHITE BLOOD COUNT 4.2 K/uL (4.8-10.8)
[2018-11-16 11:48] LABS: ALBUMIN 3.5 g/dL (3.5-5.0); ALT/SGPT 24 U/L (9-52); AST/SGOT 27 U/L (14-36); BLOOD UREA NITROGEN 15 mg/dL (7-17); CALCIUM 8.7 mg/dl (8.6-10.4); GFR NON-AFRICAN AMERICAN > 60
--- NOTE | 2018-11-16 11:57 | PCM.PSYCH ---
Initial Psychiatric Evaluation - Initial Psychiatric Evaluation Type of Admission: Voluntary History of Present Illness and Precipitating Events: Patient has capacity to a degree. She is somwhat confused but is aware of her medical and psychiatric conditions and consequences of not treating. She also complies with treatment at this point. Please ask more specific questions re capacity, if needed Meds adjusted (lowered mostly) and FULL NOTE TO FOLLOW Current Medications: Active Medications Generic Name Dose Route Start Last Admin Trade Name Freq PRN Reason Stop Dose Admin Acetaminophen 650 mg 11/14/18 11:14 11/14/18 19:21 Tylenol 325mg Tab PO 650 mg Q6 PRN Administration Fever >100.4 F Aspirin 81 mg 11/15/18 10:00 11/16/18 10:33 Aspirin Chewable PO 81 mg DAILY [facility]UL[facility]EN Administration Benztropine Mesylate 0.5 mg 11/16/18 11:51 Cogentin PO BID [facility]UL[facility]EN Carbidopa/Levodopa 1 tab 11/15/18 18:00 11/16/18 10:38 Sinemet PO 1 tab TID JULIEN Administration Dextrose 0 ml 11/14/18 17:28 Dextrose 50% Inj IV STAT PRN Hypoglycemia Protocol Protocol Dextrose 0 gm 11/14/18 17:28 Glutose 15 PO ONCE PRN Hypoglycemia Protocol Protocol Glucagon 0 mg 11/14/18 17:28 Glucagen Diagnostic Kit IM STAT PRN Hypoglycemia Protocol Protocol Heparin Sodium (Porcine) 5,000 units 11/14/18 22:00 11/16/18 10:34 Heparin SC 5,000 units Q12 [facility]UL[facility]EN Administration Sodium Chloride 1,000 mls @ 70 mls/hr 11/14/18 12:45 11/15/18 15:07 Sodium Chloride 0.9% IV 70 mls/hr .[id number] [facility]UL[facility]EN Administration Azithromycin 500 mg/ Sodium 250 mls @ 250 mls/hr 11/14/18 14:00 11/15/18 15:07 Chloride IVPB 250 mls/hr Q24H [facility] Administration Protocol Dextrose 1,000 mls @ 0 mls/hr 11/14/18 17:28 Dextrose 5% In Water 1000 Ml IV .Q0M PRN Hypoglycemia Protocol Protocol Per Protocol Insulin Human Regular 0 unit 11/14/18 22:00 11/16/18 07:50 Novolin R SC Not Given ACHS [facility]UL[facility] Protocol Nicotine 1 patch 11/15/18 10:00 11/15/18 09:15 Nicoderm Cq TD 1 patch DAILY [facility] Administration Ondansetron HCl 4 mg 11/14/18 11:14 Zofran Inj IVP Q6 PRN Nausea/Vomiting Oseltamivir Phosphate 30 mg 11/14/18 18:00 11/15/18 09:38 Tamiflu Susp PO 11/19/18 11:14 30 mg BID [facility]UL[facility]EN Administration Protocol Pantoprazole Sodium 40 mg 11/15/18 10:00 11/16/18 10:33 Protonix Inj IVP 40 mg DAILY [facility] Administration Risperidone 1 mg 11/14/18 18:00 11/15/18 09:15 Risperdal Tab PO 1 mg BID [facility]EN Administration Past Psychiatric History - Past Psychiatric History Pertinent Medical Hx (Current Medical&Sleep Prob, Allergies): Allergies Allergy/AdvReac Type Severity Reaction Status Date / Time No Known Allergies Allergy Verified 11/14/18 08:28 Benztropine [Cogentin] 1 mg PO BID 10/28/18 Divalproex Sodium [Divalproex Sodium ER] 500 mg PO BID 10/28/18 risperiDONE [RisperDAL Tab] 1 mg PO BID 10/28/18 Aspirin 81 mg PO DAILY #30 tab.chew 11/04/18 Gabapentin 300 mg PO BID #60 capsule 11/04/18 Nicotine 14 mg/24 hr [Nicoderm CQ] 1 patch TD DAILY #30 patch 11/04/18 Oseltamivir Cap [Tamiflu Cap] 75 mg PO BID #10 capsule 11/15/18
[2018-11-16 12:06] LABS: BANDS 2 % (0-2); EOSINOPHIL 2 % (0-4); LYMPHOCYTE 64 % (20-40); MONOCYTE 12 % (0-10); NEUTROPHIL 20 % (50-75); PLATELET ESTIMATE NORMAL (NORMAL); TOTAL CELLS COUNTED 100
[2018-11-16 12:07] LABS: ANISOCYTOSIS SLIGHT; HYPOCHROMIC SLIGHT
--- NOTE | 2018-11-16 12:15 | CP.PCM.PN ---
<Cira Neri - Last Filed: 11/16/18 16:33> Subjective - Date & Time of Evaluation Date of Evaluation: 11/16/18 Time of Evaluation: 12:15 - Subjective Subjective: Progress note for Dr. Gilmore Patient was seen and examined at bedside in no acute distress. Patient reports feeling well today and has no complaints. She is oriented to person and place. She denies having chest pain, palpitations, dyspnea, cough, nausea, vomiting, fevers, headaches. She does admits to low appetite and did not eat her breakfast. Objective - Vital Signs/Intake and Output Vital Signs (last 24 hours): Temp Pulse Resp BP Pulse Ox 98.1 F 75 20 121/71 95 11/16/18 08:43 11/16/18 08:43 11/16/18 08:43 11/16/18 08:43 11/16/18 08:43 - Medications Medications: Current Medications Acetaminophen (Tylenol 325mg Tab) 650 mg PO Q6 PRN PRN Reason: Fever >100.4 F Last Admin: 11/14/18 19:21 Dose: 650 mg Aspirin (Aspirin Chewable) 81 mg PO DAILY [facility] Last Admin: 11/16/18 10:33 Dose: 81 mg Benztropine Mesylate (Cogentin) 0.5 mg PO BID [facility] Carbidopa/Levodopa (Sinemet) 1 tab PO TID [facility] Last Admin: 11/16/18 10:38 Dose: 1 tab Dextrose (Dextrose 50% Inj) 0 ml IV STAT PRN; Protocol PRN Reason: Hypoglycemia Protocol Dextrose (Glutose 15) 0 gm PO ONCE PRN; Protocol PRN Reason: Hypoglycemia Protocol Glucagon (Glucagen Diagnostic Kit) 0 mg IM STAT PRN; Protocol PRN Reason: Hypoglycemia Protocol Heparin Sodium (Porcine) (Heparin) 5,000 units SC Q12 [facility] Last Admin: 11/16/18 10:34 Dose: 5,000 units Sodium Chloride (Sodium Chloride 0.9%) 1,000 mls @ 70 mls/hr IV .[id number] [facility] Last Admin: 11/15/18 15:07 Dose: 70 mls/hr Azithromycin 500 mg/ Sodium (Chloride) 250 mls @ 250 mls/hr IVPB Q24H [facility]; Protocol Last Admin: 11/15/18 15:07 Dose: 250 mls/hr Dextrose (Dextrose 5% In Water 1000 Ml) 1,000 mls @ 0 mls/hr IV .Q0M PRN; Protocol PRN Reason: Hypoglycemia Protocol Insulin Human Regular (Novolin R) 0 unit SC ACHS [facility]; Protocol Last Admin: 11/16/18 07:50 Dose: Not Given Nicotine (Nicoderm Cq) 1 patch TD DAILY [facility] Last Admin: 11/15/18 09:15 Dose: 1 patch Ondansetron HCl (Zofran Inj) 4 mg IVP Q6 PRN PRN Reason: Nausea/Vomiting Oseltamivir Phosphate (Tamiflu Susp) 30 mg PO BID [facility]; Protocol Stop: 11/19/18 11:14 Last Admin: 11/15/18 09:38 Dose: 30 mg Pantoprazole Sodium (Protonix Inj) 40 mg IVP DAILY [facility] Last Admin: 11/16/18 10:33 Dose: 40 mg Risperidone (Risperdal Tab) 1 mg PO BID [facility] Last Admin: 11/15/18 09:15 Dose: 1 mg - Labs Labs: 11/16/18 11:16 11/16/18 11:16 - Constitutional Appears: No Acute Distress - Head Exam Head Exam: ATRAUMATIC, NORMAL INSPECTION - Eye Exam Eye Exam: EOMI - ENT Exam ENT Exam: Mucous Membranes Moist - Respiratory Exam Respiratory Exam: NORMAL BREATHING PATTERN. absent: Rales, Rhonchi, Wheezes, Respiratory Distress - Cardiovascular Exam Cardiovascular Exam: REGULAR RHYTHM, +S1, +S2 - GI/Abdominal Exam GI & Abdominal Exam: Soft, Normal Bowel Sounds. absent: Distended, Tenderness - Extremities Exam Extremities Exam: Normal Inspection. absent: Pedal Edema, Tenderness - Neurological Exam Neurological Exam: Alert, Awake Additional comments: tremor 2/2 parkinsons - Psychiatric Exam Psychiatric exam: Normal Affect, Normal Mood - Skin Skin Exam: Dry, Normal Color, Warm Assessment and Plan - Assessment and Plan (Free Text) Plan: Patient is a 73 year old female with pmhx of bipolar dx, DM, HTN, HLD, Judy sons presenting to the ED for AMS, low grade fever, weakness in no acute distress. No leukocytosis, Negative Cxray and negative CT scan for acute hemorrhagic bleed, influenza positive, and negative blood culture and urine culture. Plan: Influenza, r/o respiratory infection - currently afebrile, last fever on 11/14/17 (100.5F) - no leukocytosis - Influenza: positive - Isolation precaution - Blood culture no growth x2 to date - Urine culture no growth to date - CXR: no active disease Management: * Tamiflu 30mg PO BID * Rocephin 1gm IVPB BID * Zithromax 500mg IVPB daily * NS @ 70 cc/hr * Zofran 4mg IV Q6 PRN for nausea * Tylenol 650mg PO Q6PRN for pain AMS - r/o CVA vs UTI vs bacteremia - AAOx2 - Psych consult (Dr. Mosqueda) on board to assess capacity - Neuro recs (Dr. Moreira) appreciated * may be the patient's baseline considering she has dementia. * may have some acute encephalopathy due to active infection for which antibiotics were started; patient has chronic multiple lacunar infarcts involving subcortical structures on the CT head. However, an MRI of the brain without contrast may be helpful in determining if there is an acute process since the CT is not as accurate in the acute setting. * Recommends starting Sinemet 100/25 TID for suspected Parkinsons - CT head: No evidence of acute infarct, intracranial mass, or hemorrhage. Multiple basal ganglia and right thalamic lacunar infarct; Old midbrain lacunes. Chronic white matter ischemic change. Chronic paranasal sinusitis. - EKG: Normal sinus rhythm - CXR: no acute pulmonary disease Hx Bipolar Disorder - Continue home med: Risperidone 1mg PO BID - Psychiatry consulted, Dr. Mosqueda; help appreciated Parkinson disease - Continued home medication, Cogentin - Started Sinemet 100/25 TID, per Neuro recs DM - not currently taking DM medications - HbA1c (10/29): 6.3 - monitor glucose levels, accucheck ACHS - ISS low dose - hypoglycemia protocol HTN - not currently taking any HTN medications - vitals within normal limits - continue monitoring vitals - continue aspirin 81mg PO daily HLD - not on any statin medication - Lipid panel (10/29) wnl PPx, Diet, Disposition - DVT ppx: SCDs, Heparin 5000U SC Q12H - GI ppx: pepcid 20mg IVP - Diet: heart healthy diet, low carb consistent diet - NC @ 2L PRN - PT/OT - Patient is full code - update on proxy and if patient has AD/LW Case discussed with Dr. Deirdre Petersen, PGY2 <Gilmore,Peter H - Last Filed: 11/16/18 17:58> Objective - Vital Signs/Intake and Output Vital Signs (last 24 hours): Temp Pulse Resp BP Pulse Ox 98.5 F 55 L 20 113/75 97 11/16/18 15:00 11/16/18 15:00 11/16/18 15:00 11/16/18 15:00 11/16/18 15:00 - Medications Medications: Current Medications Acetaminophen (Tylenol 325mg Tab) 650 mg PO Q6 PRN PRN Reason: Fever >100.4 F Last Admin: 11/14/18 19:21 Dose: 650 mg Aspirin (Aspirin Chewable) 81 mg PO DAILY [facility] Last Admin: 11/16/18 10:33 Dose: 81 mg Benztropine Mesylate (Cogentin) 0.5 mg PO BID [facility] Carbidopa/Levodopa (Sinemet) 1 tab PO TID [facility] Last Admin: 11/16/18 13:44 Dose: 1 tab Dextrose (Dextrose 50% Inj) 0 ml IV STAT PRN; Protocol PRN Reason: Hypoglycemia Protocol Dextrose (Glutose 15) 0 gm PO ONCE PRN; Protocol PRN Reason: Hypoglycemia Protocol Glucagon (Glucagen Diagnostic Kit) 0 mg IM STAT PRN; Protocol PRN Reason: Hypoglycemia Protocol Heparin Sodium (Porcine) (Heparin) 5,000 units SC Q12 [facility] Last Admin: 11/16/18 10:34 Dose: 5,000 units Sodium Chloride (Sodium Chloride 0.9%) 1,000 mls @ 70 mls/hr IV .[id number] [facility] Last Admin: 11/16/18 13:41 Dose: Not Given Azithromycin 500 mg/ Sodium (Chloride) 250 mls @ 250 mls/hr IVPB Q24H [facility]; Protocol Last Admin: 11/16/18 13:42 Dose: 250 mls/hr Dextrose (Dextrose 5% In Water 1000 Ml) 1,000 mls @ 0 mls/hr IV .Q0M PRN; Protocol PRN Reason: Hypoglycemia Protocol Insulin Human Regular (Novolin R) 0 unit SC ACHS [facility]; Protocol Last Admin: 11/16/18 12:30 Dose: Not Given Nicotine (Nicoderm Cq) 1 patch TD DAILY [facility] Last Admin: 11/16/18 10:00 Dose: 1 patch Ondansetron HCl (Zofran Inj) 4 mg IVP Q6 PRN PRN Reason: Nausea/Vomiting Oseltamivir Phosphate (Tamiflu Susp) 30 mg PO BID [facility]; Protocol Stop: 11/19/18 11:14 Last Admin: 11/16/18 14:01 Dose: 30 mg Pantoprazole Sodium (Protonix Inj) 40 mg IVP DAILY [facility] Last Admin: 11/16/18 10:33 Dose: 40 mg Risperidone (Risperdal Tab) 1 mg PO BID [facility] Last Admin: 11/16/18 10:00 Dose: 1 mg - Labs Labs: 11/16/18 11:16 11/16/18 11:16 Attending/Attestation - Attestation I have personally seen and examined this patient.: Yes I have fully participated in the care of the patient.: Yes I have reviewed all pertinent clinical information, including history, physical exam and plan: Yes Notes (Text): 11/16/18 17:56 Medical attending: Patient was seen and examined by me with the medical massage therapist The patient was not in any acute distress when I came and saw her. She was talkative - however like previously mentioned slow affect and slow response She is currently reciving tamiflu - and I was told that there are other family members also ill with the flu. We will also start Parkinson medication per advice of neurology Ideally would like to get MRI but I don't know if she would ever be cooperative for this. We tried the last time. Brian Gilmore
[2018-11-16] MEDS: Divalproex 500 mg ER Tab PO SCH (13:38)
[2018-11-16] MEDS: Sodium Chloride 0.9% 1,000 ML IV SCH (13:41)
[2018-11-16] MEDS: Azithromycin 500 MG in Sodium Chloride 0.9% 250 ML IVPB SCH (13:42)
--- NOTE | 2018-11-17 02:10 | CP.PCM.PN ---
<Frankie Johnston - Last Filed: 11/17/18 02:07> Subjective - Date & Time of Evaluation Date of Evaluation: 11/17/18 Time of Evaluation: 02:07 - Subjective Subjective: PGY-[address] Brian Gilmore service Patient is seen and examined at bedside. Patient is resting comfortably in bed in no acute distress. Reports no pain or discomfort at the moment. Patient is on 1:1 with sitter at bedside, who reports no acute changes on patient. As per nurse, patient has no urinary issues, andpatient is helped to go to the bathroom throughout the day. Patient continues to sleep during encounter, ROS unattainable. Objective - Vital Signs/Intake and Output Vital Signs (last 24 hours): Temp Pulse Resp BP Pulse Ox 98.5 F 55 L 20 113/75 97 11/16/18 15:00 11/16/18 15:00 11/16/18 15:00 11/16/18 15:00 11/16/18 15:00 Intake and Output: 11/16/18 11/17/18 18:59 06:59 Intake Total 960 Balance 960 - Medications Medications: Current Medications Acetaminophen (Tylenol 325mg Tab) 650 mg PO Q6 PRN PRN Reason: Fever >100.4 F Last Admin: 11/14/18 19:21 Dose: 650 mg Aspirin (Aspirin Chewable) 81 mg PO DAILY [facility] Last Admin: 11/16/18 10:33 Dose: 81 mg Benztropine Mesylate (Cogentin) 0.5 mg PO BID [facility] Last Admin: 11/16/18 18:07 Dose: 0.5 mg Carbidopa/Levodopa (Sinemet) 1 tab PO TID [facility] Last Admin: 11/16/18 18:07 Dose: 1 tab Dextrose (Dextrose 50% Inj) 0 ml IV STAT PRN; Protocol PRN Reason: Hypoglycemia Protocol Dextrose (Glutose 15) 0 gm PO ONCE PRN; Protocol PRN Reason: Hypoglycemia Protocol Glucagon (Glucagen Diagnostic Kit) 0 mg IM STAT PRN; Protocol PRN Reason: Hypoglycemia Protocol Heparin Sodium (Porcine) (Heparin) 5,000 units SC Q12 [facility] Last Admin: 11/16/18 22:22 Dose: 5,000 units Sodium Chloride (Sodium Chloride 0.9%) 1,000 mls @ 70 mls/hr IV .[id number] [facility] Last Admin: 11/16/18 13:41 Dose: Not Given Azithromycin 500 mg/ Sodium (Chloride) 250 mls @ 250 mls/hr IVPB Q24H [facility]; Protocol Last Admin: 11/16/18 13:42 Dose: 250 mls/hr Dextrose (Dextrose 5% In Water 1000 Ml) 1,000 mls @ 0 mls/hr IV .Q0M PRN; Protocol PRN Reason: Hypoglycemia Protocol Insulin Human Regular (Novolin R) 0 unit SC ACHS [facility]; Protocol Last Admin: 11/16/18 22:22 Dose: Not Given Nicotine (Nicoderm Cq) 1 patch TD DAILY [facility] Last Admin: 11/16/18 10:00 Dose: 1 patch Ondansetron HCl (Zofran Inj) 4 mg IVP Q6 PRN PRN Reason: Nausea/Vomiting Oseltamivir Phosphate (Tamiflu Susp) 30 mg PO BID [facility]; Protocol Stop: 11/19/18 11:14 Last Admin: 11/16/18 19:57 Dose: 30 mg Pantoprazole Sodium (Protonix Inj) 40 mg IVP DAILY [facility] Last Admin: 11/16/18 10:33 Dose: 40 mg Risperidone (Risperdal Tab) 1 mg PO BID [facility] Last Admin: 11/16/18 18:08 Dose: 1 mg - Labs Labs: 11/16/18 11:16 11/16/18 11:16 - Constitutional Appears: No Acute Distress - Head Exam Head Exam: ATRAUMATIC, NORMAL INSPECTION - Eye Exam Eye Exam: EOMI - ENT Exam ENT Exam: Mucous Membranes Moist - Respiratory Exam Respiratory Exam: NORMAL BREATHING PATTERN. absent: Rales, Rhonchi, Wheezes, Respiratory Distress - Cardiovascular Exam Cardiovascular Exam: REGULAR RHYTHM, +S1, +S2 - GI/Abdominal Exam GI & Abdominal Exam: Soft, Normal Bowel Sounds. absent: Distended, Tenderness - Extremities Exam Extremities Exam: Normal Inspection - Neurological Exam Neurological Exam: Alert, Awake Additional comments: right arm resting tremors - Psychiatric Exam Psychiatric exam: Normal Affect, Normal Mood - Skin Skin Exam: Dry, Intact, Normal Color, Warm Assessment and Plan - Assessment and Plan (Free Text) Plan: nfluenza, r/o respiratory infection - currently afebrile, last fever on 11/14/17 (100.5F) - Influenza: positive - Isolation precaution - Blood culture no growth x2 to date - Urine culture no growth to date - CXR: no active disease Management: * Tamiflu 30mg PO BID * Rocephin 1gm IVPB BID * Zithromax 500mg IVPB daily * NS @ 70 cc/hr * Zofran 4mg IV Q6 PRN for nausea * Tylenol 650mg PO Q6PRN for pain AMS - r/o CVA vs UTI vs bacteremia - AAOx2 - Psych consult (Dr. Mosqueda) on board to assess capacity - Neuro recs (Dr. Moreira) appreciated * may be the patient's baseline considering she has dementia. * may have some acute encephalopathy due to active infection for which antib iotics were started; patient has chronic multiple lacunar infarcts involving subcortical structures on the CT head. However, an MRI of the brain without contrast may be helpful in determining if there is an acute process since the CT is not as accurate in the acute setting. * Recommends starting Sinemet 100/25 TID for suspected Parkinsons - CT head: No evidence of acute infarct, intracranial mass, or hemorrhage. Multiple basal ganglia and right thalamic lacunar infarct; Old midbrain lacunes. Chronic white matter ischemic change. Chronic paranasal sinusitis. - EKG: Normal sinus rhythm - CXR: no acute pulmonary disease Hx Bipolar Disorder - Continue home med: Risperidone 1mg PO BID - Psychiatry consulted, Dr. Mosqueda; help appreciated Parkinson disease - Continued home medication, Cogentin - Started Sinemet 100/25 TID, per Neuro recs DM - not currently taking DM medications - HbA1c (10/29): 6.3 - monitor glucose levels, accucheck ACHS - ISS low dose - hypoglycemia protocol HTN - not currently taking any HTN medications - vitals within normal limits - continue monitoring vitals - continue aspirin 81mg PO daily HLD - not on any statin medication - Lipid panel (10/29) wnl PPx, Diet, Disposition - DVT ppx: SCDs, Heparin 5000U SC Q12H - GI ppx: pepcid 20mg IVP - Diet: heart healthy diet, low carb consistent diet - NC @ 2L PRN - PT/OT - Patient is full code - update on proxy and if patient has AD/LW <Brian Gilmore H - Last Filed: 11/17/18 12:26> Objective - Vital Signs/Intake and Output Vital Signs (last 24 hours): Temp Pulse Resp BP Pulse Ox 98.3 F 68 20 138/75 98 11/17/18 08:23 11/17/18 08:23 11/17/18 08:23 11/17/18 08:23 11/17/18 08:23 Intake and Output: 11/17/18 11/17/18 06:59 18:59 Intake Total 960 Balance 960 - Medications Medications: Current Medications Acetaminophen (Tylenol 325mg Tab) 650 mg PO Q6 PRN PRN Reason: Fever >100.4 F Last Admin: 11/14/18 19:21 Dose: 650 mg Aspirin (Aspirin Chewable) 81 mg PO DAILY [facility] Last Admin: 11/17/18 11:42 Dose: 81 mg Benztropine Mesylate (Cogentin) 0.5 mg PO BID [facility] Last Admin: 11/17/18 11:42 Dose: 0.5 mg Carbidopa/Levodopa (Sinemet) 1 tab PO TID [facility] Last Admin: 11/17/18 11:43 Dose: 1 tab Dextrose (Dextrose 50% Inj) 0 ml IV STAT PRN; Protocol PRN Reason: Hypoglycemia Protocol Dextrose (Glutose 15) 0 gm PO ONCE PRN; Protocol PRN Reason: Hypoglycemia Protocol Glucagon (Glucagen Diagnostic Kit) 0 mg IM STAT PRN; Protocol PRN Reason: Hypoglycemia Protocol Heparin Sodium (Porcine) (Heparin) 5,000 units SC Q12 [facility] Last Admin: 11/17/18 11:41 Dose: 5,000 units Sodium Chloride (Sodium Chloride 0.9%) 1,000 mls @ 70 mls/hr IV .[id number] [facility] Last Admin: 11/16/18 13:41 Dose: Not Given Azithromycin 500 mg/ Sodium (Chloride) 250 mls @ 250 mls/hr IVPB Q24H [facility]; Protocol Last Admin: 11/16/18 13:42 Dose: 250 mls/hr Dextrose (Dextrose 5% In Water 1000 Ml) 1,000 mls @ 0 mls/hr IV .Q0M PRN; Protocol PRN Reason: Hypoglycemia Protocol Insulin Human Regular (Novolin R) 0 unit SC ACHS [facility]; Protocol Last Admin: 11/17/18 11:45 Dose: Not Given Nicotine (Nicoderm Cq) 1 patch TD DAILY [facility] Last Admin: 11/17/18 11:41 Dose: 1 patch Ondansetron HCl (Zofran Inj) 4 mg IVP Q6 PRN PRN Reason: Nausea/Vomiting Oseltamivir Phosphate (Tamiflu Susp) 30 mg PO BID [facility]; Protocol Stop: 11/19/18 11:14 Last Admin: 11/17/18 11:43 Dose: 30 mg Pantoprazole Sodium (Protonix Inj) 40 mg IVP DAILY [facility] Last Admin: 11/17/18 11:41 Dose: 40 mg Risperidone (Risperdal Tab) 1 mg PO BID [facility] Last Admin: 11/17/18 11:43 Dose: 1 mg - Labs Labs: 11/17/18 07:37 11/17/18 06:35 Attending/Attestation - Attestation I have personally seen and examined this patient.: Yes I have fully participated in the care of the patient.: Yes I have reviewed all pertinent clinical information, including history, physical exam and plan: Yes Notes (Text): 11/17/18 12:22 Medical attending: Patient was seen and examined by me. Agree with the above note by the resident The patient was not in any acute distress, she asked when she could go home Patient has some dementia, but today was answering questions appropriately and also has her usual pleasant affect and pleasant discussion She ate well Denied fever, denied chills, denied chest pain and denied abdominal pain I explained to her that her family was concerned about her confusion and she reported feeling better when she initially came to the ER she tested + for influenza and did appear confused in the ER. Psychiatry has adjusted some medication Possibly could go soon if she does not become confused or agitated Brian Gilmore
[2018-11-17 07:30] LABS: BASO % 0.8 % (0.0-2.0); EOS # 0.2 K/uL (0.0-0.7); EOS % 4.1 % (0.0-4.0); LYMPH # 2.9 K/uL (1.0-4.3); MEAN CELL VOLUME 94.5 fL (81.0-99.0); MEAN CORPUSCULAR HEMOGLOBIN 30.3 pg (27.0-31.0); MEAN CORPUSCULAR HGB CONC 32.1 g/dL (33.0-37.0); MEAN PLATELET VOLUME 8.7 fL (7.2-11.7); MONO # 0.9 K/uL (0.0-0.8); MONO % 17.8 % (0.0-10.0); NEUT % 20.3 % (50.0-75.0); NRBC % 0.2 % (0.0-2.0); RBC 3.61 Mil/uL (3.80-5.20); RED CELL DISTRIBUTION WIDTH 16.1 % (11.5-14.5)
[2018-11-17] MEDS: (Novolin R) Insulin Human Regular 100 units/ml vial SC SCH ×4 (07:39→22:45)
[2018-11-17 07:49] LABS: ALBUMIN 3.2 g/dL (3.5-5.0); ALT/SGPT 17 U/L (9-52); AST/SGOT 22 U/L (14-36); BLOOD UREA NITROGEN 14 mg/dL (7-17); CALCIUM 8.6 mg/dl (8.6-10.4); GFR NON-AFRICAN AMERICAN > 60
[2018-11-17] MEDS: Oseltamivir 6 MG/ML PO SCH ×2 (11:43→17:44)
[2018-11-17] MEDS: Azithromycin 500 MG in Sodium Chloride 0.9% 250 ML IVPB SCH (13:38)
[2018-11-17] MEDS: Sodium Chloride 0.9% 1,000 ML IV SCH ×2 (13:39→15:05)
--- NOTE | 2018-11-18 07:14 | CP.PCM.PN ---
Subjective - Date & Time of Evaluation Date of Evaluation: 11/18/18 Time of Evaluation: 08:14 - Subjective Subjective: PGY-1 Erma Ibarra D.O. Medicine progress note for Dr. Stokes's service: Patient was seen and examined this morning. She reports that she is feeling well. She is sitting up in bed and just finished her breakfast. She is alert and oriented x3. She explains that she came into the hospital because of her arthritis and feeling weak. She states that she utilizes a walker at home. She states she is feeling stronger. She denies SOB or cough. Objective - Vital Signs/Intake and Output Vital Signs (last 24 hours): Temp Pulse Resp BP Pulse Ox 98.2 F 61 20 136/86 97 11/17/18 15:00 11/17/18 15:00 11/17/18 15:00 11/17/18 15:00 11/17/18 15:00 Intake and Output: 11/18/18 11/18/18 06:59 18:59 Intake Total 860 Balance 860 - Medications Medications: Current Medications Acetaminophen (Tylenol 325mg Tab) 650 mg PO Q6 PRN PRN Reason: Fever >100.4 F Last Admin: 11/17/18 21:15 Dose: 650 mg Aspirin (Aspirin Chewable) 81 mg PO DAILY [facility] Last Admin: 11/17/18 11:42 Dose: 81 mg Benztropine Mesylate (Cogentin) 0.5 mg PO BID [facility] Last Admin: 11/17/18 17:44 Dose: 0.5 mg Carbidopa/Levodopa (Sinemet) 1 tab PO TID [facility] Last Admin: 11/17/18 17:44 Dose: 1 tab Dextrose (Dextrose 50% Inj) 0 ml IV STAT PRN; Protocol PRN Reason: Hypoglycemia Protocol Dextrose (Glutose 15) 0 gm PO ONCE PRN; Protocol PRN Reason: Hypoglycemia Protocol Glucagon (Glucagen Diagnostic Kit) 0 mg IM STAT PRN; Protocol PRN Reason: Hypoglycemia Protocol Azithromycin 500 mg/ Sodium (Chloride) 250 mls @ 250 mls/hr IVPB Q24H [facility]; Protocol Last Admin: 11/17/18 13:38 Dose: 250 mls/hr Insulin Human Regular (Novolin R) 0 unit SC ACHS [facility]; Protocol Last Admin: 11/17/18 22:45 Dose: Not Given Nicotine (Nicoderm Cq) 1 patch TD DAILY [facility] Last Admin: 11/17/18 11:41 Dose: 1 patch Ondansetron HCl (Zofran Inj) 4 mg IVP Q6 PRN PRN Reason: Nausea/Vomiting Oseltamivir Phosphate (Tamiflu Susp) 30 mg PO BID [facility]; Protocol Stop: 11/19/18 11:14 Last Admin: 11/17/18 17:44 Dose: 30 mg Pantoprazole Sodium (Protonix Inj) 40 mg IVP DAILY [facility] Last Admin: 11/17/18 11:41 Dose: 40 mg Risperidone (Risperdal Tab) 1 mg PO BID [facility] Last Admin: 11/17/18 17:45 Dose: 1 mg - Labs Labs: 11/17/18 07:37 11/17/18 06:35 Assessment and Plan - Assessment and Plan (Free Text) Assessment: Patient is a 73 yo female with a history of Bipolar disorder, T2DM, HTN, HLD, and Parkinson disease who presented with weakness, brought in by her son. She as found to have influenza A. She initially presented with AMS but is now alert and oriented x3. Psychiatry saw the patient and deemed her to have capacity to make medical decisions at the time. Plan: Influenza, r/o respiratory infection - currently afebrile, last fever on 11/14/17 (100.5F) - Influenza: positive - Isolation precaution - Blood culture no growth x2 to date - Urine culture no growth to date - CXR: no active disease Management: * Tamiflu 30mg PO BID * Rocephin 1gm IVPB BID * Zithromax 500mg IVPB daily * NS @ 70 cc/hr * Zofran 4mg IV Q6 PRN for nausea * Tylenol 650mg PO Q6PRN for pain AMS - r/o CVA vs UTI vs bacteremia - AAOx2 - Psych consult (Dr. Mosqueda) on board to assess capacity - Neuro recs (Dr. Moreira) appreciated * may be the patient's baseline considering she has dementia. * may have some acute encephalopathy due to active infection for which antibiotics were started; patient has chronic multiple lacunar infarcts involving subcortical structures on the CT head. However, an MRI of the brain without contrast may be helpful in determining if there is an acute process since the CT is not as accurate in the acute setting. * Recommends starting Sinemet 100/25 TID for suspected Parkinsons - CT head: No evidence of acute infarct, intracranial mass, or hemorrhage. Multiple basal ganglia and right thalamic lacunar infarct; Old midbrain lacunes. Chronic white matter ischemic change. Chronic paranasal sinusitis. - EKG: Normal sinus rhythm - CXR: no acute pulmonary disease Hx Bipolar Disorder - Continue home med: Risperidone 1mg PO BID - Psychiatry consulted, Dr. Mosqueda; help appreciated Parkinson disease - Continued home medication, Cogentin - Started Sinemet 100/25 TID, per Neuro recs DM - not currently taking DM medications - HbA1c (10/29): 6.3 - monitor glucose levels, accucheck ACHS - ISS low dose - hypoglycemia protocol HTN - not currently taking any HTN medications - vitals within normal limits - continue monitoring vitals - continue aspirin 81mg PO daily HLD - not on any statin medication - Lipid panel (10/29) wnl PPx, Diet, Disposition - DVT ppx: SCDs, Heparin 5000U SC Q12H - GI ppx: pepcid 20mg IVP - Diet: heart healthy diet, low carb consistent diet - NC @ 2L PRN - PT/OT - Patient is full code - update on proxy and if patient has AD/LW
[2018-11-18 08:08] VITALS: BP 109/62; PULSE 66; TEMP 98.7; O2SAT 96
[2018-11-18 08:13] LABS: BASO % 0.7 % (0.0-2.0); EOS # 0.2 K/uL (0.0-0.7); HEMOGLOBIN 11.9 g/dL (11.0-16.0); LYMPH # 3.2 K/uL (1.0-4.3); LYMPH % 59.1 % (20.0-40.0); MEAN CELL VOLUME 94.5 fL (81.0-99.0); MEAN CORPUSCULAR HEMOGLOBIN 30.6 pg (27.0-31.0); MEAN CORPUSCULAR HGB CONC 32.3 g/dL (33.0-37.0); MEAN PLATELET VOLUME 8.6 fL (7.2-11.7); MONO # 0.7 K/uL (0.0-0.8); MONO % 13.5 % (0.0-10.0); NEUT # 1.2 K/uL (1.8-7.0); NEUT % 22.7 % (50.0-75.0); RBC 3.89 Mil/uL (3.80-5.20); WHITE BLOOD COUNT 5.4 K/uL (4.8-10.8)
[2018-11-18] MEDS: (Novolin R) Insulin Human Regular 100 units/ml vial SC SCH ×2 (08:14→11:57)
[2018-11-18 08:30] LABS: ALB/GLOB RATIO 1.1 (1.0-2.1); ALBUMIN 3.8 g/dL (3.5-5.0); ALT/SGPT 20 U/L (9-52); AST/SGOT 30 U/L (14-36); BLOOD UREA NITROGEN 13 mg/dL (7-17); CALCIUM 9.4 mg/dl (8.6-10.4); GFR NON-AFRICAN AMERICAN 55
[2018-11-18] MEDS: Oseltamivir 6 MG/ML PO SCH (09:09)
[2018-11-18] MEDS ORDERED: Pantoprazole 40 mg EC Tab PO SCH (10:00)
--- NOTE | 2018-11-18 13:16 | CP.PCM.DIS ---
<Erma Ibarra - Last Filed: 11/18/18 17:06> Provider - Provider Date of Admission: 11/17/18 15:36 Attending physician: Nancy Stokes MD Primary care physician: Dr. Hilton Consults: 11/14/18 11:14 Case Management Referral Routine Comment: Physician Instructions: Reason For Exam: Reason for Referral: Discharge Planning 11/15/18 14:58 Neurology Consult Routine Comment: Consulting Provider: Keith Moreira Consulting Physician: Keith Moreira Reason for Consult: AMS 11/15/18 16:52 Psychiatry Consult Routine Comment: Consulting Provider: Paramjit Mosqueda Consulting Physician: Paramjit Mosqueda Reason for Consult: AMS, capacity assessment Time Spent in preparation of Discharge (in minutes): 45 Diagnosis - Discharge Diagnosis (1) Influenza A Status: Acute Priority: High (2) Altered mental state Status: Resolved Priority: High (3) Parkinson disease Status: Chronic Priority: Medium (4) HTN (hypertension) Status: Chronic Priority: Medium (5) T2DM (type 2 diabetes mellitus) Status: Chronic Priority: Medium (6) HLD (hyperlipidemia) Status: Chronic Priority: Low (7) Bipolar disorder Status: Chronic Priority: Low Hospital Course - Lab Results Lab Results: Micro Results 11/14/18 10:39 Blood Blood Culture - Preliminary NO GROWTH AFTER 4 DAYS 11/14/18 10:15 Blood Blood Culture - Preliminary NO GROWTH AFTER 4 DAYS 11/14/18 11:06 Urine Random Urine Culture - Final No Growth (<1,000 CFU/ML) Most Recent Lab Values WBC 5.4 K/uL (4.8-10.8) 11/18/18 08:07 RBC 3.89 Mil/uL (3.80-5.20) 11/18/18 08:07 Hgb 11.9 g/dL (11.0-16.0) 11/18/18 08:07 Hct 36.8 % (34.0-47.0) 11/18/18 08:07 MCV 94.5 fL (81.0-99.0) 11/18/18 08:07 MCH 30.6 pg (27.0-31.0) 11/18/18 08:07 MCHC 32.3 g/dL (33.0-37.0) L 11/18/18 08:07 RDW 16.0 % (11.5-14.5) H 11/18/18 08:07 Plt Count 198 K/uL (130-400) 11/18/18 08:07 MPV 8.6 fL (7.2-11.7) 11/18/18 08:07 Neut % (Auto) 22.7 % (50.0-75.0) L 11/18/18 08:07 Lymph % (Auto) 59.1 % (20.0-40.0) H 11/18/18 08:07 [place] % (Auto) 13.5 % (0.0-10.0) H 11/18/18 08:07 Eos % (Auto) 4.0 % (0.0-4.0) 11/18/18 08:07 Baso % (Auto) 0.7 % (0.0-2.0) 11/18/18 08:07 Neut # (Auto) 1.2 K/uL (1.8-7.0) L 11/18/18 08:07 Lymph # (Auto) 3.2 K/uL (1.0-4.3) 11/18/18 08:07 [place] # (Auto) 0.7 K/uL (0.0-0.8) 11/18/18 08:07 Eos # (Auto) 0.2 K/uL (0.0-0.7) 11/18/18 08:07 Baso # (Auto) 0.0 K/uL (0.0-0.2) 11/18/18 08:07 Neutrophils % (Manual) 20 % (50-75) L 11/16/18 11:16 Band Neutrophils % 2 % (0-2) 11/16/18 11:16 Lymphocytes % (Manual) 64 % (20-40) H 11/16/18 11:16 Monocytes % (Manual) 12 % (0-10) H 11/16/18 11:16 Eosinophils % (Manual) 2 % (0-4) 11/16/18 11:16 Platelet Estimate Normal (NORMAL) 11/16/18 11:16 Hypochromasia (manual) Slight 11/16/18 11:16 Anisocytosis (manual) Slight 11/16/18 11:16 Tear Drop Cells Slight 11/15/18 05:52 pO2 24 mm/Hg (30-55) L 11/14/18 09:49 VBG pH 7.37 (7.32-7.43) 11/14/18 09:49 VBG pCO2 57 mmHg (40-60) 11/14/18 09:49 VBG HCO3 28.1 mmol/L 11/14/18 09:49 VBG Total CO2 34.7 mmol/L (22-28) H 11/14/18 09:49 VBG O2 Sat (Calc) 38.3 % (40-65) L 11/14/18 09:49 VBG Base Excess 6.0 mmol/L (0.0-2.0) H 11/14/18 09:49 VBG Potassium 4.4 mmol/L (3.6-5.2) 11/14/18 09:49 Sodium 142.0 mmol/l (132-148) 11/14/18 09:49 Chloride 107.0 mmol/L (98-107) 11/14/18 09:49 Glucose 74 mg/dl (65-105) 11/14/18 09:49 Lactate 1.1 mmol/L (0.7-2.1) 11/14/18 09:49 Sodium 140 mmol/L (132-148) 11/18/18 08:07 Potassium 4.6 mmol/L (3.6-5.2) 11/18/18 08:07 Chloride 106 mmol/L (98-107) 11/18/18 08:07 Carbon Dioxide 32 mmol/L (22-30) H 11/18/18 08:07 Anion Gap 6 (10-20) L 11/18/18 08:07 BUN 13 mg/dL (7-17) 11/18/18 08:07 Creatinine 1.0 mg/dL (0.7-1.2) 11/18/18 08:07 Est GFR ( Amer) > 60 11/18/18 08:07 Est GFR (Non-Af Amer) 55 11/18/18 08:07 POC Glucose (mg/dL) 77 mg/dL (65-110) 11/18/18 11:31 Random Glucose 86 mg/dL (65-105) 11/18/18 08:07 Calcium 9.4 mg/dl (8.6-10.4) 11/18/18 08:07 Phosphorus 4.3 mg/dL (2.5-4.5) 11/14/18 09:42 Magnesium 1.6 mg/dL (1.6-2.3) 11/14/18 09:42 Total Bilirubin 0.9 mg/dL (0.2-1.3) 11/18/18 08:07 AST 30 U/L (14-36) 11/18/18 08:07 ALT 20 U/L (9-52) 11/18/18 08:07 Alkaline Phosphatase 56 U/L (38-126) 11/18/18 08:07 NT-Pro-B Natriuret Pep 373 pg/mL (0-900) 11/14/18 09:42 Total Protein 7.3 g/dL (6.3-8.3) 11/18/18 08:07 Albumin 3.8 g/dL (3.5-5.0) 11/18/18 08:07 Globulin 3.5 gm/dL (2.2-3.9) 11/18/18 08:07 Albumin/Globulin Ratio 1.1 (1.0-2.1) 11/18/18 08:07 Venous Blood Potassium 4.4 mmol/L (3.6-5.2) 11/14/18 09:49 Urine Color Yellow (YELLOW) 11/14/18 11:06 Urine Clarity Clear (Clear) 11/14/18 11:06 Urine pH 7.0 (5.0-8.0) 11/14/18 11:06 Ur Specific [place] 1.011 (1.003-1.030) 11/14/18 11:06 Urine Protein Negative mg/dL (NEGATIVE) 11/14/18 11:06 Urine Glucose (UA) Normal mg/dL (Normal) 11/14/18 11:06 Urine Ketones Negative mg/dL (NEGATIVE) 11/14/18 11:06 Urine Blood Negative (NEGATIVE) 11/14/18 11:06 Urine Nitrate Negative (NEGATIVE) 11/14/18 11:06 Urine Bilirubin Negative (NEGATIVE) 11/14/18 11:06 Urine Urobilinogen Normal mg/dL (0.2-1.0) 11/14/18 11:06 Ur Leukocyte Esterase Neg Padmaja/uL (Negative) 11/14/18 11:06 Urine WBC (Auto) 1 /hpf (0-5) 11/14/18 11:06 Urine RBC (Auto) 4 /hpf (0-3) H 11/14/18 11:06 Ur Squamous Epith Cells 2 /hpf (0-5) 11/14/18 11:06 Hepatitis A IgM Ab Negative (NEGATIVE) 11/15/18 05:52 Hep Bs Antigen Negative (NEGATIVE) 11/15/18 05:52 Hep B Core IgM Ab Negative (NEGATIVE) 11/15/18 05:52 Hepatitis C Antibody Negative (NEGATIVE) 11/15/18 05:52 Influenza Typ A,B (EIA) Pos for influenza a (NEGATIVE) H 11/14/18 09:27 - Hospital Course Hospital Course: Patient is a 73 year old female with pmhx of Bipolar disorder, DMII, HTN, HLD, Parkison's disease that came to the ED brought by her son for weakness. Patient was recently admitted on 10/28/18 for bilateral hip pain, and had negative workup for multiple myeloma. Patient is a poor historian, and is AAOx2 at time of encounter. No family is found at bedside at time of encounter. As per ED documentation, patient had difficulty walking, as well as altered mental status and urinary incontinence. Patient admits to having dificulty getting from bed but denies any pain, urinary symptoms. Patient states she is doing fine and would like to go home. Patient denies any recent falls, or LOC. Patient denies fever, chills, cough, sore throat, chest pain, shortness of breath, abdominal pain, nausea, vomiting, diarrhea, constipation or burning/pain/blood when urinating. Patient denies any recent sickness. 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 Patient was found to be positive for influenza A and started on Tamiflu. Started on antibiotics for possible PNA, but chest XR was negative for active disease. Patient's confusion improved throughout her hospitalization. Blood cultures remained negative. Psychiatry was consulted and altered the patient's medications. Neurology saw the patient and started her on Sinemet. Upon discharge, patient was afebrile >72 hours. No leukocytosis. Her vitals were stable and within normal limits. She stated her weakness had improved. She was mentating and ambulating at her baseline. She was alert and oriented x3. She denies SOB or cough. Her lungs were clear on auscultation. PT recommended MAKENZIE for patient. Her daughter, Sarah, stated that she would take patient to outpatient rehab. Discharge Exam - Head Exam Head Exam: ATRAUMATIC, NORMAL INSPECTION - Eye Exam Eye Exam: EOMI, Normal appearance - ENT Exam Additional comments: possible tardive dyskinesia- lip smacking, tongue protrusion - Neck Exam Neck exam: Normal Inspection - Respiratory Exam Respiratory Exam: Clear to PA & Lateral, NORMAL BREATHING PATTERN, UNREMARKABLE. absent: Accessory Muscle Use, Respiratory Distress - Cardiovascular Exam Cardiovascular Exam: RRR, +S1, +S2 - GI/Abdominal Exam GI & Abdominal Exam: Soft, Unremarkable. absent: Distended, Tenderness - Extremities Exam Extremities exam: normal inspection - Neurological Exam Neurological exam: Alert, Oriented x3 - Psychiatric Exam Psychiatric exam: Normal Affect, Normal Mood - Skin Skin Exam: Dry, Normal Color, Warm Discharge Plan - Discharge Medications Prescriptions: RX: Benztropine [Cogentin] 0.5 mg PO BID #60 tab RX: Carbidopa/Levodopa 25/100 mg [Sinemet] 1 tab PO TID #90 tab Oseltamivir Cap [Tamiflu Cap] 30 mg PO BID #3 capsule RX: risperiDONE [RisperDAL Tab] 1 mg PO BID #60 tab - Follow Up Plan Condition: IMPROVED Disposition: HOME/ ROUTINE Patient education suggested?: Yes Instructions: Flu, Adult (DC), Benztropine, Carbidopa and Levodopa, Oseltamivir, Risperidone Additional Instructions: Please follow-up with your primary care provider, Dr. Hilton, within 3-5 days of discharge. Follow-up with boiler house supervisor/oncologist, Dr. Francisco, within 1 week as instructed last admission. You need further monitoring and mammogram as outpatient. You may call to schedule an appointment: [facility] [place] [phone] Follow-up with psychiatry as an outpatient to continue medication management. Follow-up with neurology as an outpatient to continue management of Parkinson disease. You will be given a referral for physical therapy as an outpatient. You are highly encouraged to stop smoking. You may use nicotine patches or gum [id number]. Take all medications as prescribed. You have been started on Sinemet, a medication for Parkinson disease. Take this three times daily. You need to take Tamiflu through tomorrow, Sunday 11/19- once more today 11/18 and twice tomorrow 11/19. If symptoms recur, return to the nearest emergency department. Referrals: aPramjit Mosqueda MD [Staff Provider] - Camilo Francisco MD [Staff Provider] - Keith Moreira MD [Staff Provider] - Sanjay Hilton MD [Staff Provider] - <Nancy Stokes - Last Filed: 11/18/18 18:30> Provider - Provider Date of Admission: 11/17/18 15:36 Attending physician: Nancy Stokes MD Consults: 11/14/18 11:14 Case Management Referral Routine Comment: Physician Instructions: Reason For Exam: Reason for Referral: Discharge Planning 11/15/18 14:58 Neurology Consult Routine Comment: Consulting Provider: Keith Moreira Consulting Physician: Keith Moreira Reason for Consult: AMS 11/15/18 16:52 Psychiatry Consult Routine Comment: Consulting Provider: Paramjit Mosqueda Consulting Physician: Paramjit Mosqueda Reason for Consult: AMS, capacity assessment Hospital Course - Lab Results Lab Results: Micro Results 11/14/18 10:39 Blood Blood Culture - Preliminary NO GROWTH AFTER 4 DAYS 11/14/18 10:15 Blood Blood Culture - Preliminary NO GROWTH AFTER 4 DAYS 11/14/18 11:06 Urine Random Urine Culture - Final No Growth (<1,000 CFU/ML) Most Recent Lab Values WBC 5.4 K/uL (4.8-10.8) 11/18/18 08:07 RBC 3.89 Mil/uL (3.80-5.20) 11/18/18 08:07 Hgb 11.9 g/dL (11.0-16.0) 11/18/18 08:07 Hct 36.8 % (34.0-47.0) 11/18/18 08:07 MCV 94.5 fL (81.0-99.0) 11/18/18 08:07 MCH 30.6 pg (27.0-31.0) 11/18/18 08:07 MCHC 32.3 g/dL (33.0-37.0) L 11/18/18 08:07 RDW 16.0 % (11.5-14.5) H 11/18/18 08:07 Plt Count 198 K/uL (130-400) 11/18/18 08:07 MPV 8.6 fL (7.2-11.7) 11/18/18 08:07 Neut % (Auto) 22.7 % (50.0-75.0) L 11/18/18 08:07 Lymph % (Auto) 59.1 % (20.0-40.0) H 11/18/18 08:07 [place] % (Auto) 13.5 % (0.0-10.0) H 11/18/18 08:07 Eos % (Auto) 4.0 % (0.0-4.0) 11/18/18 08:07 Baso % (Auto) 0.7 % (0.0-2.0) 11/18/18 08:07 Neut # (Auto) 1.2 K/uL (1.8-7.0) L 11/18/18 08:07 Lymph # (Auto) 3.2 K/uL (1.0-4.3) 11/18/18 08:07 [place] # (Auto) 0.7 K/uL (0.0-0.8) 11/18/18 08:07 Eos # (Auto) 0.2 K/uL (0.0-0.7) 11/18/18 08:07 Baso # (Auto) 0.0 K/uL (0.0-0.2) 11/18/18 08:07 Neutrophils % (Manual) 20 % (50-75) L 11/16/18 11:16 Band Neutrophils % 2 % (0-2) 11/16/18 11:16 Lymphocytes % (Manual) 64 % (20-40) H 11/16/18 11:16 Monocytes % (Manual) 12 % (0-10) H 11/16/18 11:16 Eosinophils % (Manual) 2 % (0-4) 11/16/18 11:16 Platelet Estimate Normal (NORMAL) 11/16/18 11:16 Hypochromasia (manual) Slight 11/16/18 11:16 Anisocytosis (manual) Slight 11/16/18 11:16 Tear Drop Cells Slight 11/15/18 05:52 pO2 24 mm/Hg (30-55) L 11/14/18 09:49 VBG pH 7.37 (7.32-7.43) 11/14/18 09:49 VBG pCO2 57 mmHg (40-60) 11/14/18 09:49 VBG HCO3 28.1 mmol/L 11/14/18 09:49 VBG Total CO2 34.7 mmol/L (22-28) H 11/14/18 09:49 VBG O2 Sat (Calc) 38.3 % (40-65) L 11/14/18 09:49 VBG Base Excess 6.0 mmol/L (0.0-2.0) H 11/14/18 09:49 VBG Potassium 4.4 mmol/L (3.6-5.2) 11/14/18 09:49 Sodium 142.0 mmol/l (132-148) 11/14/18 09:49 Chloride 107.0 mmol/L (98-107) 11/14/18 09:49 Glucose 74 mg/dl (65-105) 11/14/18 09:49 Lactate 1.1 mmol/L (0.7-2.1) 11/14/18 09:49 Sodium 140 mmol/L (132-148) 11/18/18 08:07 Potassium 4.6 mmol/L (3.6-5.2) 11/18/18 08:07 Chloride 106 mmol/L (98-107) 11/18/18 08:07 Carbon Dioxide 32 mmol/L (22-30) H 11/18/18 08:07 Anion Gap 6 (10-20) L 11/18/18 08:07 BUN 13 mg/dL (7-17) 11/18/18 08:07 Creatinine 1.0 mg/dL (0.7-1.2) 11/18/18 08:07 Est GFR ( Amer) > 60 11/18/18 08:07 Est GFR (Non-Af Amer) 55 11/18/18 08:07 POC Glucose (mg/dL) 77 mg/dL (65-110) 11/18/18 11:31 Random Glucose 86 mg/dL (65-105) 11/18/18 08:07 Calcium 9.4 mg/dl (8.6-10.4) 11/18/18 08:07 Phosphorus 4.3 mg/dL (2.5-4.5) 11/14/18 09:42 Magnesium 1.6 mg/dL (1.6-2.3) 11/14/18 09:42 Total Bilirubin 0.9 mg/dL (0.2-1.3) 11/18/18 08:07 AST 30 U/L (14-36) 11/18/18 08:07 ALT 20 U/L (9-52) 11/18/18 08:07 Alkaline Phosphatase 56 U/L (38-126) 11/18/18 08:07 NT-Pro-B Natriuret Pep 373 pg/mL (0-900) 11/14/18 09:42 Total Protein 7.3 g/dL (6.3-8.3) 11/18/18 08:07 Albumin 3.8 g/dL (3.5-5.0) 11/18/18 08:07 Globulin 3.5 gm/dL (2.2-3.9) 11/18/18 08:07 Albumin/Globulin Ratio 1.1 (1.0-2.1) 11/18/18 08:07 Venous Blood Potassium 4.4 mmol/L (3.6-5.2) 11/14/18 09:49 Urine Color Yellow (YELLOW) 11/14/18 11:06 Urine Clarity Clear (Clear) 11/14/18 11:06 Urine pH 7.0 (5.0-8.0) 11/14/18 11:06 Ur Specific [place] 1.011 (1.003-1.030) 11/14/18 11:06 Urine Protein Negative mg/dL (NEGATIVE) 11/14/18 11:06 Urine Glucose (UA) Normal mg/dL (Normal) 11/14/18 11:06 Urine Ketones Negative mg/dL (NEGATIVE) 11/14/18 11:06 Urine Blood Negative (NEGATIVE) 11/14/18 11:06 Urine Nitrate Negative (NEGATIVE) 11/14/18 11:06 Urine Bilirubin Negative (NEGATIVE) 11/14/18 11:06 Urine Urobilinogen Normal mg/dL (0.2-1.0) 11/14/18 11:06 Ur Leukocyte Esterase Neg Padmaja/uL (Negative) 11/14/18 11:06 Urine WBC (Auto) 1 /hpf (0-5) 11/14/18 11:06 Urine RBC (Auto) 4 /hpf (0-3) H 11/14/18 11:06 Ur Squamous Epith Cells 2 /hpf (0-5) 11/14/18 11:06 Hepatitis A IgM Ab Negative (NEGATIVE) 11/15/18 05:52 Hep Bs Antigen Negative (NEGATIVE) 11/15/18 05:52 Hep B Core IgM Ab Negative (NEGATIVE) 11/15/18 05:52 Hepatitis C Antibody Negative (NEGATIVE) 11/15/18 05:52 Influenza Typ A,B (EIA) Pos for influenza a (NEGATIVE) H 11/14/18 09:27 Attending/Attestation - Attestation I have personally seen and examined this patient.: Yes I have fully participated in the care of the patient.: Yes I have reviewed all pertinent clinical information, including history, physical exam and plan: Yes Notes (Text): seen and examined by me. Patient feels good. no complain,no new weakness.Her weakness on admission is likely due to influenza. continue home meds and recommend home PT,out patient follow ups discussed. Discharge meds discussed
[2018-11-18] MEDS ORDERED: Influenza Vaccine 60 mcg/0.5 mL SYR (4YR UP) IM ONE (14:15)
[2018-11-18] MEDS ORDERED: Pneumococcal 23-Valent Vaccine IM ONE (14:15)
== END 2018-11-18 14:36 | disposition home or self-care (01) | DRG 113 ==
LOC: C.ER 08:12 → C.9E 10:51 → C.3T 11-15 18:31 → OBSVTOIN 11-17 15:36
PROVIDERS: ADMIT Hospitalist; ATTEND Internal Medicine
DX: J10.1 Influenza due to other identified influenza virus with other respiratory manifestations (principal); G20 Parkinson's disease; F02.80 Dementia in other diseases classified elsewhere, unspecified severity, without behavioral disturbance, psychotic disturbance, mood disturbance, and anxiety; E11.9 Type 2 diabetes mellitus without complications; J43.9 Emphysema, unspecified; I10 Essential (primary) hypertension; R32 Unspecified urinary incontinence; G89.29 Other chronic pain; M54.9 Dorsalgia, unspecified; E78.5 Hyperlipidemia, unspecified; E78.00 Pure hypercholesterolemia, unspecified; F31.9 Bipolar disorder, unspecified; F17.210 Nicotine dependence, cigarettes, uncomplicated; Z79.84 Long term (current) use of oral hypoglycemic drugs

== ENCOUNTER 2019-03-26 19:08 | Emergency (ER) | payer SELFPAY, OTHER | END 2019-03-26 20:39 | disposition home or self-care (01) | LOC: C.ER 19:08 ==